=== PATIENT | female | born 1945 | race Caucasian/White ===

== ENCOUNTER 2020-04-18 00:22 | Inpatient (IN) | payer MEDICARE, OTHER ==
[2020-04-18] MEDS ORDERED: SODIUM CHLORIDE 0.9% 1,000 ML IV STA ×4 (00:31→02:22)
[2020-04-18] MEDS ORDERED: SODIUM CHLORIDE 0.9% 500 ML 500 ML IV STA (00:31)
[2020-04-18] MEDS ORDERED: ONDANSETRON 4 MG/2 ML VIAL IVP STA (00:31)
[2020-04-18] MEDS ORDERED: ATROPINE SULFATE 0.1 MG/ML 10ML SYRINGE IV STA ×2 (00:31→00:53)
--- NOTE | 2020-04-18 00:32 | ED ---
Weakness HPI - General Stated complaint: Altered Mental Status Time Seen by Provider: 04/18/20 00:31 Source: RN notes reviewed, old records reviewed Mode of arrival: EMS Limitations: language barrier, altered mental status - History of Present Illness Initial comments: This is a 74-year-old female in significant distress with persistent nausea vomiting near syncopal event at home called EMS to the possible seizure activity by patient the patient has no history of seizures. Patient admits to significant shortness breath persistent cough and congestion. Patient is mildly hypoxic on arrival with persistent nausea vomiting. Poor strain secondary severe clinical condition MD Complaint: generalized weakness, lack of energy -: days(s) Location: generalized Severity: severe Severity scale (1-10): 10 Consistency: constant Improves with: none Worsens with: none Context: recent illness, history of similar Associated Symptoms: confusion, fever/chills, loss of appetite, nausea/vomiting - Related Data Home Medications Medication Instructions Recorded Confirmed Atorvastatin [Lipitor] 20 mg PO DAILY 04/18/20 04/18/20 Calcium Citrate/Vitamin D3 1 cap PO BID 04/18/20 04/18/20 [Citracal + D Maximum Caplet] Clopidogrel [Plavix] 75 mg PO DAILY 04/18/20 04/18/20 Denosumab [Prolia] 60 mg SQ Q180D 04/18/20 04/18/20 Donepezil HCl [Aricept] 10 mg PO HS 04/18/20 04/18/20 Esomeprazole Magnesium [NexIUM] 40 mg PO BID 04/18/20 04/18/20 Hyoscyamine Sulfate [Levbid] 0.375 mg PO Q12H 04/18/20 04/18/20 Levothyroxine Sodium 112 mcg PO DAILY 04/18/20 04/18/20 Metoprolol Tartrate [Lopressor] 50 mg PO BID 04/18/20 04/18/20 Nitroglycerin Sl Tabs [Nitrostat] 0.4 mg SL Q5M PRN 04/18/20 04/18/20 Potassium Chloride ER [K-Dur 20] 20 meq PO DAILY 04/18/20 04/18/20 Ranolazine [Ranexa] 500 mg PO BID 04/18/20 04/18/20 Sennosides/Docusate Sodium [Colace 1 tab PO BID 04/18/20 04/18/20 2-in-1 Tablet] Previous Rx's Medication Instructions Recorded Torsemide [Demadex] 40 mg PO DAILY tab 04/26/20 Allergies Allergy/AdvReac Type Severity Reaction Status Date / Time aspirin Allergy Unknown Verified 04/18/20 09:12 cephalexin [From Keflex] Allergy Unknown Verified 04/18/20 09:12 ciprofloxacin [From Cipro] Allergy Unknown Verified 04/18/20 09:12 codeine Allergy Unknown Verified 04/18/20 09:12 ibuprofen [From Motrin] Allergy Unknown Verified 04/18/20 09:12 Iodinated Contrast Media Allergy Unknown Verified 04/18/20 09:12 latex Allergy Unknown Verified 04/18/20 09:12 naproxen Allergy Unknown Verified 04/18/20 09:12 Penicillins Allergy Unknown Verified 04/18/20 09:12 quinine [From Quine] Allergy Unknown Verified 04/18/20 09:12 sulfamethoxazole Allergy Unknown Verified 04/18/20 09:12 [From Bactrim] trimethoprim [From Bactrim] Allergy Unknown Verified 04/18/20 09:12 Review of Systems ROS Statement: Those systems with pertinent positive or pertinent negative responses have been documented in the HPI. ROS Other: All systems not noted in ROS Statement are negative. Past Medical History - Past Family History family Family Medical History: No Reported History General Exam Limitations: altered mental status General appearance: alert, in no apparent distress, anxious, in distress, cachectic Head exam: Present: atraumatic, normocephalic, normal inspection Eye exam: Present: normal appearance, PERRL, EOMI. Absent: scleral icterus, conjunctival injection, periorbital swelling ENT exam: Present: normal exam, mucous membranes moist Neck exam: Present: normal inspection. Absent: tenderness, meningismus, lymphadenopathy Respiratory exam: Present: wheezes, rales, accessory muscle use, decreased breath sounds, prolonged expiratory. Absent: respiratory distress, rhonchi, stridor Cardiovascular Exam: Present: bradycardia, normal heart sounds. Absent: systolic murmur, diastolic murmur, rubs, gallop, clicks GI/Abdominal exam: Present: soft, normal bowel sounds. Absent: distended, tenderness, guarding, rebound, rigid Extremities exam: Present: normal inspection, full ROM, normal capillary refill. Absent: tenderness, pedal edema, joint swelling, calf tenderness Back exam: Present: normal inspection Neurological exam: Present: alert, oriented X3, CN II-XII intact Psychiatric exam: Present: normal affect, normal mood Skin exam: Present: warm, dry, intact, normal color. Absent: rash Course Vital Signs 04/18/20 04/18/20 04/18/20 00:23 00:52 01:06 Temperature 97.6 F Pulse Rate 36 L 40 L 40 L Pulse Rate [ Raisin Separator Operator ] Respiratory 14 16 16 Rate Blood Pressure 112/75 136/60 139/64 O2 Sat by Pulse 88 L 94 L 95 Oximetry 04/18/20 04/18/20 04/18/20 01:07 01:46 01:59 Temperature Pulse Rate 43 L 38 L Pulse Rate [ 39 L Raisin Separator Operator ] Respiratory 16 16 Rate Blood Pressure 113/56 O2 Sat by Pulse 90 L 98 Oximetry 04/18/20 04/18/20 04/18/20 02:09 02:30 02:45 Temperature Pulse Rate 40 L 42 L 44 L Pulse Rate [ Raisin Separator Operator ] Respiratory 16 16 16 Rate Blood Pressure 101/51 130/56 61/44 O2 Sat by Pulse 98 97 98 Oximetry 04/18/20 04/18/20 04/18/20 03:00 03:15 03:30 Temperature Pulse Rate 40 L 45 L 42 L Pulse Rate [ Raisin Separator Operator ] Respiratory 16 16 16 Rate Blood Pressure 75/45 83/46 89/49 O2 Sat by Pulse 96 97 98 Oximetry 04/18/20 04/18/20 04/18/20 03:45 04:00 04:15 Temperature Pulse Rate 43 L 41 L 41 L Pulse Rate [ Raisin Separator Operator ] Respiratory 16 16 16 Rate Blood Pressure 85/42 77/38 88/40 O2 Sat by Pulse 97 100 9 L Oximetry 04/18/20 04:31 Temperature Pulse Rate 46 L Pulse Rate [ Raisin Separator Operator ] Respiratory 16 Rate Blood Pressure 86/40 O2 Sat by Pulse 96 Oximetry - Reevaluation(s) Reevaluation #1: Medical record is reviewed patient does not have improvement of symptoms in the ER, remains bradycardic Patient and informed of findings and results, questions are answered Patient continues again to be bradycardic potassium was treated, left lites replaced. EKG Findings - EKG Comments: EKG Findings:: EKG is likely blocked versus idioventricular pace, QRS 144 QTC 460 severe bradycardia rate 37 Procedures - Sepsis Sepsis Focused Exam #1 Time Sepsis Criteria Met: 00:30 Sepsis Focused Exam Date: 04/18/20 Sepsis Focused Exam Time: 04:00 Sepsis Focused Exam Complete: Yes Vital Signs & RN Notes Reviewed: Yes Capillary Refill: < 2 Seconds: Fingers, Toes Peripheral Pulses: Normal: Radial (R), Radial (L), Posterior Tibialis (R), Posterior Tibialis (L), Dorsalis Pedis (R), Dorsalis Pedis (L) Skin Color: Flushed Respiratory Exam: respiratory distress, rhonchi, decreased breath sounds Cardiovascular Exam: bradycardia Medical Decision Making - Medical Decision Making 74 female DF for evaluation of unresponsive with nausea and vomiting. Patient found to be hyperkalemic's secondary to renal failure and sepsis complicated by bradycardia likely secondary to above. Electrolytes are treated, patient be admitted to ICU - Lab Data Result diagrams: 04/25/20 06:03 04/25/20 06:03 Lab Results 04/18/20 04/18/20 04/18/20 Range/Units 00:37 00:37 00:37 WBC 7.1 (3.8-10.6) k/uL RBC 3.85 (3.80-5.40) m/uL Hgb 12.1 (11.4-16.0) gm/dL Hct 39.3 (34.0-46.0) % MCV 102.1 H (80.0-100.0) fL MCH 31.3 (25.0-35.0) pg MCHC 30.7 L (31.0-37.0) g/dL RDW 14.7 (11.5-15.5) % Plt Count 167 (150-450) k/uL Neutrophils % Not Reportable Neutrophils % (Manual) 68 % Band Neuts % (Manual) 10 % Lymphocytes % Not Reportable Lymphocytes % (Manual) 14 % Monocytes % Not Reportable Monocytes % (Manual) 8 % Eosinophils % Not Reportable Basophils % Not Reportable Metamyelocytes % 2 % Neutrophils # Not Reportable Neutrophils # (Manual) 5.50 (1.3-7.7) k/uL Lymphocytes # Not Reportable Lymphocytes # (Manual) 0.99 L (1.0-4.8) k/uL Monocytes # Not Reportable Monocytes # (Manual) 0.57 (0-1.0) k/uL Eosinophils # Not Reportable Basophils # Not Reportable Metamyelocytes # (Man) 0.14 H (0) k/uL Nucleated RBCs 0 (0-0) /100 WBC Manual Slide Review Performed Large Platelets Present Polychromasia Present Hypochromasia Moderate Poikilocytosis (manual Present Anisocytosis (manual) Present Macrocytosis Slight PT 11.8 (9.0-12.0) sec INR 1.2 H (<1.2) APTT 24.2 (22.0-30.0) sec Sodium (137-145) mmol/L Potassium (3.5-5.1) mmol/L Chloride (98-107) mmol/L Carbon Dioxide (22-30) mmol/L Anion Gap mmol/L BUN (7-17) mg/dL Creatinine (0.52-1.04) mg/dL Est GFR (CKD-EPI)AfAm (>60 ml/min/1.73 sqM) Est GFR (CKD-EPI)NonAf (>60 ml/min/1.73 sqM) Glucose (74-99) mg/dL Lactic Ac Sepsis Rflx Plasma Lactic Acid Dl (0.7-2.0) mmol/L Calcium (8.4-10.2) mg/dL Phosphorus (2.5-4.5) mg/dL Magnesium (1.6-2.3) mg/dL Total Bilirubin (0.2-1.3) mg/dL AST (14-36) U/L ALT (4-34) U/L Alkaline Phosphatase (38-126) U/L Creatine Kinase (30-135) U/L CK-MB (CK-2) (0.0-2.4) ng/mL Troponin I (0.000-0.034) ng/mL NT-Pro-B Natriuret Pep pg/mL Total Protein (6.3-8.2) g/dL Albumin (3.5-5.0) g/dL TSH (0.465-4.680) mIU/L Urine Color Yellow Urine Appearance Clear (Clear) Urine pH 7.0 (5.0-8.0) Ur Specific [place] 1.016 (1.001-1.035) Urine Protein 1+ H (Negative) Urine Glucose (UA) Negative (Negative) Urine Ketones Negative (Negative) Urine Blood Small H (Negative) Urine Nitrite Negative (Negative) Urine Bilirubin Negative (Negative) Urine Urobilinogen <2.0 (<2.0) mg/dL Ur Leukocyte Esterase Negative (Negative) Urine RBC 10 H (0-5) /hpf Urine WBC 2 (0-5) /hpf Hyaline Casts 13 H (0-2) /lpf Urine Mucus Rare H (None) /hpf 04/18/20 04/18/20 04/18/20 Range/Units 00:37 00:37 00:37 WBC (3.8-10.6) k/uL RBC (3.80-5.40) m/uL Hgb (11.4-16.0) gm/dL Hct (34.0-46.0) % MCV (80.0-100.0) fL MCH (25.0-35.0) pg MCHC (31.0-37.0) g/dL RDW (11.5-15.5) % Plt Count (150-450) k/uL Neutrophils % Neutrophils % (Manual) % Band Neuts % (Manual) % Lymphocytes % Lymphocytes % (Manual) % Monocytes % Monocytes % (Manual) % Eosinophils % Basophils % Metamyelocytes % % Neutrophils # Neutrophils # (Manual) (1.3-7.7) k/uL Lymphocytes # Lymphocytes # (Manual) (1.0-4.8) k/uL Monocytes # Monocytes # (Manual) (0-1.0) k/uL Eosinophils # Basophils # Metamyelocytes # (Man) (0) k/uL Nucleated RBCs (0-0) /100 WBC Manual Slide Review Large Platelets Polychromasia Hypochromasia Poikilocytosis (manual Anisocytosis (manual) Macrocytosis PT (9.0-12.0) sec INR (<1.2) APTT (22.0-30.0) sec Sodium 135 L (137-145) mmol/L Potassium 6.5 H* (3.5-5.1) mmol/L Chloride 100 (98-107) mmol/L Carbon Dioxide 23 (22-30) mmol/L Anion Gap 12 mmol/L BUN 23 H (7-17) mg/dL Creatinine 2.08 H (0.52-1.04) mg/dL Est GFR (CKD-EPI)AfAm 26 (>60 ml/min/1.73 sqM) Est GFR (CKD-EPI)NonAf 23 (>60 ml/min/1.73 sqM) Glucose 129 H (74-99) mg/dL Lactic Ac Sepsis Rflx Plasma Lactic Acid Dl 4.2 H* (0.7-2.0) mmol/L Calcium 8.1 L (8.4-10.2) mg/dL Phosphorus 5.7 H (2.5-4.5) mg/dL Magnesium 1.8 (1.6-2.3) mg/dL Total Bilirubin 1.3 (0.2-1.3) mg/dL AST 91 H (14-36) U/L ALT 28 (4-34) U/L Alkaline Phosphatase 126 (38-126) U/L Creatine Kinase 47 (30-135) U/L CK-MB (CK-2) <0.2 (0.0-2.4) ng/mL Troponin I <0.012 (0.000-0.034) ng/mL NT-Pro-B Natriuret Pep pg/mL Total Protein 7.2 (6.3-8.2) g/dL Albumin 3.9 (3.5-5.0) g/dL TSH 0.740 (0.465-4.680) mIU/L Urine Color Urine Appearance (Clear) Urine pH (5.0-8.0) Ur Specific [place] (1.001-1.035) Urine Protein (Negative) Urine Glucose (UA) (Negative) Urine Ketones (Negative) Urine Blood (Negative) Urine Nitrite (Negative) Urine Bilirubin (Negative) Urine Urobilinogen (<2.0) mg/dL Ur Leukocyte Esterase (Negative) Urine RBC (0-5) /hpf Urine WBC (0-5) /hpf Hyaline Casts (0-2) /lpf Urine Mucus (None) /hpf 04/18/20 04/18/20 Range/Units 00:37 01:10 WBC (3.8-10.6) k/uL RBC (3.80-5.40) m/uL Hgb (11.4-16.0) gm/dL Hct (34.0-46.0) % MCV (80.0-100.0) fL MCH (25.0-35.0) pg MCHC (31.0-37.0) g/dL RDW (11.5-15.5) % Plt Count (150-450) k/uL Neutrophils % Neutrophils % (Manual) % Band Neuts % (Manual) % Lymphocytes % Lymphocytes % (Manual) % Monocytes % Monocytes % (Manual) % Eosinophils % Basophils % Metamyelocytes % % Neutrophils # Neutrophils # (Manual) (1.3-7.7) k/uL Lymphocytes # Lymphocytes # (Manual) (1.0-4.8) k/uL Monocytes # Monocytes # (Manual) (0-1.0) k/uL Eosinophils # Basophils # Metamyelocytes # (Man) (0) k/uL Nucleated RBCs (0-0) /100 WBC Manual Slide Review Large Platelets Polychromasia Hypochromasia Poikilocytosis (manual Anisocytosis (manual) Macrocytosis PT (9.0-12.0) sec INR (<1.2) APTT (22.0-30.0) sec Sodium (137-145) mmol/L Potassium (3.5-5.1) mmol/L Chloride (98-107) mmol/L Carbon Dioxide (22-30) mmol/L Anion Gap mmol/L BUN (7-17) mg/dL Creatinine (0.52-1.04) mg/dL Est GFR (CKD-EPI)AfAm (>60 ml/min/1.73 sqM) Est GFR (CKD-EPI)NonAf (>60 ml/min/1.73 sqM) Glucose (74-99) mg/dL Lactic Ac Sepsis Rflx Y Plasma Lactic Acid Dl (0.7-2.0) mmol/L Calcium (8.4-10.2) mg/dL Phosphorus (2.5-4.5) mg/dL Magnesium (1.6-2.3) mg/dL Total Bilirubin (0.2-1.3) mg/dL AST (14-36) U/L ALT (4-34) U/L Alkaline Phosphatase (38-126) U/L Creatine Kinase (30-135) U/L CK-MB (CK-2) (0.0-2.4) ng/mL Troponin I (0.000-0.034) ng/mL NT-Pro-B Natriuret Pep 4090 pg/mL Total Protein (6.3-8.2) g/dL Albumin (3.5-5.0) g/dL TSH (0.465-4.680) mIU/L Urine Color Urine Appearance (Clear) Urine pH (5.0-8.0) Ur Specific [place] (1.001-1.035) Urine Protein (Negative) Urine Glucose (UA) (Negative) Urine Ketones (Negative) Urine Blood (Negative) Urine Nitrite (Negative) Urine Bilirubin (Negative) Urine Urobilinogen (<2.0) mg/dL Ur Leukocyte Esterase (Negative) Urine RBC (0-5) /hpf Urine WBC (0-5) /hpf Hyaline Casts (0-2) /lpf Urine Mucus (None) /hpf - Radiology Data Radiology results: report reviewed (S x-rays positive for significant bilateral pneumonia), image reviewed Critical Care Time Critical Care Time: Yes Total Critical Care Time: 65 Disposition Clinical Impression: Altered mental status, Weakness, Bradycardia, Hyperkalemia, Near syncope, Nausea & vomiting, Community acquired bacterial pneumonia, Hypoxia, Pneumonia of both lungs, Sepsis with acute hypoxic respiratory failure Disposition: ADMITTED IP TO THIS HOSP Condition: Fair Is patient prescribed a controlled substance at d/c from ED?: No
[2020-04-18 01:03] LABS: HCT 39.3 % (34.0-46.0); HGB 12.1 gm/dL (11.4-16.0); Hypochromasia Moderate; MCH 31.3 pg (25.0-35.0); MCHC 30.7 g/dL (31.0-37.0); MCV 102.1 fL (80.0-100.0); Macrocytosis Slight; Mean Platelet Volume 7.5; Platelet Count 167 k/uL (150-450); RBC 3.85 m/uL (3.80-5.40); RDW 14.7 % (11.5-15.5); WBC 7.1 k/uL (3.8-10.6)
[2020-04-18 01:04] LABS: Albumin 3.9 g/dL (3.5-5.0); Calcium 8.1 mg/dL (8.4-10.2); Magnesium 1.8 mg/dL (1.6-2.3); Phosphorus 5.7 mg/dL (2.5-4.5); Total Bilirubin 1.3 mg/dL (0.2-1.3); Total Protein 7.2 g/dL (6.3-8.2)
[2020-04-18] MEDS ORDERED: DEXTROSE 50% SYRINGE 50 ML IVP STA (01:09)
[2020-04-18] MEDS ORDERED: SODIUM BICARB 8.4% 50 ML SYR (1 MEQ/ML) IV STA (01:09)
[2020-04-18] MEDS ORDERED: INSULIN REGULAR 100 UNIT/ML VIAL IV ONE (01:09)
[2020-04-18 01:10] LABS: Potassium 6.5 mmol/L (3.5-5.1)
[2020-04-18 01:14] LABS: INR 1.2 (<1.2); Partial Thromboplastin Time 24.2 sec (22.0-30.0); Prothrombin Time 11.8 sec (9.0-12.0)
[2020-04-18] MEDS ORDERED: CALCIUM GLUCONATE 2 GM in SODIUM CHLORIDE 0.9% 100 ML IVPB ONE (01:15)
--- NOTE | 2020-04-18 01:25 | XR ---
EXAM: XR Chest, 1 View CLINICAL HISTORY: ITS.REASON XR Reason: sob TECHNIQUE: Frontal view of the chest. COMPARISON: No relevant prior studies available. FINDINGS: Lungs: Patchy to confluent opacities at the lung bases and in the perihilar regions, right greater than left. Pleural space: Unremarkable. No pneumothorax. No large pleural effusion. Heart: Cardiomegaly of unknown chronicity. Mediastinum: The medius on contours are unremarkable, accounting for obliquity and perihilar changes. No severe in tracheal deviation. Bones/joints: Scoliosis of the cervicothoracic region suggested. No severe rotatory component. IMPRESSION: 1. Patchy to confluent opacities at the lung bases and in the perihilar regions, right greater than left. Differential consideration includes bilateral pneumonia versus asymmetric pulmonary edema. No large pleural effusion or pneumothorax. 2. Cardiomegaly of unknown chronicity.
[2020-04-18 01:30] LABS: Creatine Kinase MB <0.2 ng/mL (0.0-2.4); Troponin I <0.012 ng/mL (0.000-0.034)
[2020-04-18] MEDS ORDERED: NALOXONE 0.4 MG/ML 1 ML VIAL IV PRN (01:34)
[2020-04-18] MEDS ORDERED: PNEUMONIA PROTOCOL UTILIZED 1 EACH MISC PO PRN (01:34)
[2020-04-18] MEDS ORDERED: AZITHROMYCIN 500 MG in SODIUM CHLORIDE 0.9% 250 ML IVPB ONE (01:45)
[2020-04-18] MEDS ORDERED: SODIUM CHLORIDE 0.9% 1,000 ML IV SCH (01:45)
[2020-04-18] MEDS ORDERED: DEXTROSE 5%-0.45% NACL 1,000 ML IV SCH (01:45)
[2020-04-18] MEDS ORDERED: DOPamine DRIP 800 MG in DEXTROSE/WATER 1 250ML.BAG IV ONE (01:55)
[2020-04-18 02:05] LABS: Appearance,Urine Clear (Clear); Bilirubin,Urine Negative (Negative); Blood,Urine Small (Negative); Color,Urine Yellow; Glucose,Urine (UA) Negative (Negative); Hyaline Casts,Urine 13 /lpf (0-2); Ketones,Urine Negative (Negative); Leukocyte Esterase,Urine Negative (Negative); Mucus,Urine Rare /hpf; Nitrite,Urine Negative (Negative); Protein,Urine 1+ (Negative); RBC,Urine 10 /hpf (0-5); Specific Gravity,Urine 1.016 (1.001-1.035); Urobilinogen,Urine <2.0 mg/dL (<2.0); WBC,Urine 2 /hpf (0-5)
[2020-04-18 02:15] LABS: Anisocytosis (M) Present; Band Neutrophils % 10 %; Lymphocytes # (M) 0.99 k/uL (1.0-4.8); Metamyelocytes # (M) 0.14 k/uL (0); Metamyelocytes % 2 %; Monocytes # (M) 0.57 k/uL (0-1.0); Neutrophils % (M) 68 %; Nucleated Red Blood Cells 0 /100 WBC (0-0); Total Cells Counted 200
[2020-04-18 02:16] LABS: Polychromasia Present
[2020-04-18 02:17] LABS: Large Platelets Present; Poikilocytosis (M) Present
[2020-04-18] MEDS ORDERED: VANCOMYCIN IV PER PHARMACY 1 EACH MISC MISCELLANE PRN (02:22)
[2020-04-18] MEDS ORDERED: NOREPINEPHRINE 4 MG in SODIUM CHLORIDE 0.9% 250 ML IV SCH (03:15)
--- NOTE | 2020-04-18 03:31 | P.HPIM ---
History of Present Illness H&P Date: 04/18/20 Chief Complaint: altered mental status 74 year old female with hypertension , fibromyalgia , and history of CAD patient was brought in by her due to sudden change in her mental status , she has been at her baseline status of health until last week when she had her colonoscopy (before procedure tested negative for COVID). since then she has been coughing sometimes productive of yellowish sputum. denies any chest pain , or trouble breathing. denies any fever or chills. denies any change in smell or taste sensation. she reports increase in her body aches (she has history of fibromyalgia). today her noticed that she was not acting normal . he was trying to wake her up around this evening, but she seemed very weak and confused. he suspects that she might have a seizure episode (she was shaking all her limbs for more than 5 minutes) he notified EMS and brought her to the hospital . patient also report few episodes of coffee ground vomiting. denies any bloody diarrhea. denies any abd pain. denies recent travel or sick contact. denies any changes in urination in the ED, she was found to have bilateral lower lung patchy infilterates. CHARMAINE with hyperkalemia. and severe bradycardia. EKG results discussed with cardio , who recommended starting her on dopamine patient was given Ca gluconate in the ED, bicarb, and D50%/insulin to help lower hyperkalemia Review of Systems all systems reviewed, pertinent negatives and positives as per HPI ROS unobtainable: due to mental status Past Medical History Past Medical History: Coronary Artery Disease (CAD), Fibromyalgia, Hypertension History of Any Multi-Drug Resistant Organisms: None Reported Past Psychological History: No Psychological Hx Reported Smoking Status: Never smoker Past Alcohol Use History: Occasional Past Drug Use History: None Reported - Past Family History family Family Medical History: No Reported History Medications and Allergies Allergies Allergy/AdvReac Type Severity Reaction Status Date / Time aspirin Allergy Unknown Verified 04/18/20 00:36 cephalexin [From Keflex] Allergy Unknown Verified 04/18/20 00:36 codeine Allergy Unknown Verified 04/18/20 00:36 ibuprofen [From Motrin] Allergy Unknown Verified 04/18/20 00:36 Iodinated Contrast Media Allergy Unknown Verified 04/18/20 00:36 Penicillins Allergy Unknown Verified 04/18/20 00:36 quinine [From Quine] Allergy Unknown Verified 04/18/20 00:36 Physical Exam Vitals: Vital Signs Temp Pulse Pulse Resp BP Pulse Ox 04/18/20 01:07 39 L 04/18/20 01:06 40 L 16 139/64 95 04/18/20 00:52 40 L 16 136/60 94 L 04/18/20 00:23 97.6 F 36 L 14 112/75 88 L Intake and Output 04/17/20 04/17/20 04/18/20 14:59 22:59 06:59 Other: Weight 50.802 kg General: non toxic, no distress, appears at stated age, Derm: no unusual rashes/lesions no unusual ecchymoses, warm, dry. Head: atraumatic, normocephalic, symmetric Eyes: EOMI, anicteric sclera, pupils equal round reactive to light ENT: Nose and ears atraumatic, no thrush, no pharyngeal erythema Neck: No thyromegaly, no cervical lymphadenopathy, trachea midline, supple Mouth: no lip lesion, mucus membranes moist Cardiovascular: S1S2 bradycardia, no murmur, positive posterior tibial pulse bilateral, no edema, capillary refill immediate Lungs: decrease breath sounds at lung basis bilaterally , no wheezing , no accessory muscle use Abdominal: soft, no tenderness to palpation no guarding, no appreciable organomegaly, positive bowel sounds Ext: no gross muscle atrophy, muscle strength 4 out of 5 in all 4 extremities grossly, no contractures Neuro: CN II-XI grossly intact, light touch intact all 4 extremities, finger to nose within normal limits Psych: Alert, orientation to place and person Results CBC & Chem 7: 04/18/20 00:37 04/18/20 00:37 Labs: Abnormal Lab Results - Last 24 Hours (Table) 04/18/20 04/18/20 04/18/20 Range/Units 00:37 00:37 00:37 MCV 102.1 H (80.0-100.0) fL MCHC 30.7 L (31.0-37.0) g/dL INR 1.2 H (<1.2) Sodium 135 L (137-145) mmol/L Potassium 6.5 H* (3.5-5.1) mmol/L BUN 23 H (7-17) mg/dL Creatinine 2.08 H (0.52-1.04) mg/dL Glucose 129 H (74-99) mg/dL Plasma Lactic Acid Dl (0.7-2.0) mmol/L Calcium 8.1 L (8.4-10.2) mg/dL Phosphorus 5.7 H (2.5-4.5) mg/dL AST 91 H (14-36) U/L 04/18/20 Range/Units 00:37 MCV (80.0-100.0) fL MCHC (31.0-37.0) g/dL INR (<1.2) Sodium (137-145) mmol/L Potassium (3.5-5.1) mmol/L BUN (7-17) mg/dL Creatinine (0.52-1.04) mg/dL Glucose (74-99) mg/dL Plasma Lactic Acid Dl 4.2 H* (0.7-2.0) mmol/L Calcium (8.4-10.2) mg/dL Phosphorus (2.5-4.5) mg/dL AST (14-36) U/L Assessment and Plan Assessment: acute metabolic encephalopathy acute bilateral community acquired pneumonia lactic acidosis CHARMAINE hyperkalemia symptomatic with bradycardia plan blood culture monitor vital signs ICU care patient given calcium gluconate, D50%/Insulin IV, Na Bicarb, to lower hyperkalemia IVF hydration follow up lactic acid avoid nephrotoxic meds monitor urine output Dopamine drip per cardio recommendations for bradycardia follow up K empiric ABx, with vanco with azithro cardio and ICU consultation DVT ppx with heparin sc tid check COVID 19 full code anticipated length of stay > 2 midnights case discussed with ED, RN, patient and her A total of 70 minutes were spent on the care of this complex patient more than 50% of the time was spent in counseling and care coordination.
[2020-04-18 03:53] LABS: Basophils % (A) 1 %; Eosinophils % (A) 0 %; HCT 34.4 % (34.0-46.0); HGB 10.7 gm/dL (11.4-16.0); Hypochromasia Slight; Lymphocytes # (A) 1.2 k/uL (1.0-4.8); Lymphocytes % (A) 14 %; MCH 31.8 pg (25.0-35.0); MCHC 31.2 g/dL (31.0-37.0); MCV 102.1 fL (80.0-100.0); Macrocytosis Slight; Monocytes # (A) 0.5 k/uL (0-1.0); Monocytes % (A) 6 %; Neutrophils # (A) 6.7 k/uL (1.3-7.7); Neutrophils % (A) 78 %; Platelet Count 140 k/uL (150-450); RBC 3.37 m/uL (3.80-5.40); RDW 14.1 % (11.5-15.5); WBC 8.6 k/uL (3.8-10.6)
[2020-04-18] MEDS ORDERED: VANCOMYCIN 1,000 MG in SODIUM CHLORIDE 0.9% 250 ML IVPB ONE (04:00)
[2020-04-18 04:02] LABS: Albumin 3.3 g/dL (3.5-5.0); Calcium 7.8 mg/dL (8.4-10.2); Potassium 4.7 mmol/L (3.5-5.1); Total Bilirubin 1.1 mg/dL (0.2-1.3); Total Protein 6.2 g/dL (6.3-8.2)
[2020-04-18] MEDS: NOREPINEPHRINE 32 MG in SODIUM CHLORIDE 0.9% 218 ML IV SCH (04:03)
[2020-04-18 04:58] LABS: Glucose,Whole Blood 118 mg/dL (75-99)
[2020-04-18] MEDS ORDERED: Magnesium Replacement Protocol 1 EACH MISC MISCELLANE PRN (06:28)
[2020-04-18] MEDS: MAGNESIUM SULFATE-D5W PMX 1 GM in DEXTROSE/WATER 1 100ML.BAG IVPB SCH ×2 (06:37→09:44)
[2020-04-18] MEDS: IPRATROPIUM-ALBUTEROL 3 ML NEB INHALATION PRN (07:19)
--- NOTE | 2020-04-18 08:17 | XR ---
EXAMINATION TYPE: XR chest 1V portable DATE OF EXAM: 04/18/2020 COMPARISON: Prior chest x-ray 04/18/2020 HISTORY: Status post central venous catheter placement TECHNIQUE: Single frontal view of the chest is obtained. FINDINGS: There is been placement of a right jugular central venous catheter, distal tip is in the r ight atrium. No evident pneumothorax. No other significant interval change. IMPRESSION: No evident complication status post central venous catheter placement.
[2020-04-18] MEDS ORDERED: ENOXAPARIN 40 MG/0.4 ML SYRINGE SQ SCH (09:00)
[2020-04-18] MEDS ORDERED: PANTOPRAZOLE 40 MG/10 ML VIAL IV SCH (09:00)
[2020-04-18] MEDS ORDERED: LEVOFLOXACIN 500MG-D5W PMX 500 MG in DEXTROSE/WATER 1 100ML.BAG IVPB SCH (09:15)
[2020-04-18] MEDS: LEVOTHYROXINE 112 MCG TAB PO SCH (09:44)
[2020-04-18] MEDS: ATORVASTATIN 20 MG TAB PO SCH (10:04)
[2020-04-18] MEDS: CLOPIDOGREL 75 MG TAB PO SCH (10:04)
[2020-04-18 10:32] LABS: C Reactive Protein 11.3 mg/L (<10.0)
--- NOTE | 2020-04-18 10:58 | ECHOF ---
Referral Reason:elaine MEASUREMENTS -------- HEIGHT: 149.9 cm WEIGHT: 54.9 kg BP: 106/42 RVIDd: 3.0 cm (< 3.3) IVSd: 0.9 cm (0.6 - 1.1) LVIDd: 4.4 cm (3.9 - 5.3) LVPWd: 1.1 cm (0.6 - 1.1) IVSs: 1.3 cm LVIDs: 3.3 cm LVPWs: 1.5 cm LA Diam: 3.6 cm (2.7 - 3.8) LAESV Index (A-L): 38.50 ml/m Ao Diam: 2.5 cm (2.0 - 3.7) AV Cusp: 1.8 cm (1.5 - 2.6) MV EXCURSION: 19.436 mm (> 18.000) MV EF SLOPE: 128 mm/s (70 - 150) EPSS: 0.4 cm MV E Carlos: 1.13 m/s MV DecT: 288 ms MV A Carlos: 0.82 m/s MV E/A Ratio: 1.38 RAP: 5.00 mmHg RVSP: 38.72 mmHg FINDINGS -------- Sinus rhythm. This was a technically good study. The left ventricular size is normal. Left ventricular wall thickness is normal. Overall left vent ricular systolic function is normal with, an EF between 60 - 65 %. The right ventricle is normal in size. LA is moderately dilated 34-39 ml/m2 The right atrium is normal in size. Interatrial and interventricular septum intact. The aortic valve is trileaflet and appears structurally normal. [id number] mitral regurgitation is present. Mild tricuspid regurgitation present. There is mild pulmonary hypertension. The right ventricular systolic pressure, as measured by Doppler, is 38.72mmHg. Trace/mild (physiologic) pulmonic regurgitation. The aortic root size is normal. Normal inferior vena cava with normal inspiratory collapse consistent with estimated right atrial pre ssure of 5 mmHg. There is no pericardial effusion. CONCLUSIONS -------- 1. The left ventricular size is normal. 2. Left ventricular wall thickness is normal. 3. Overall left ventricular systolic function is normal with, an EF between 60 - 65 %. 4. LA is moderately dilated 34-39 ml/m2 5. Dmcd-hq-[id number] mitral regurgitation is present. 6. Mild tricuspid regurgitation present. 7. There is mild pulmonary hypertension. 8. The right ventricular systolic pressure, as measured by Doppler, is 38.72mmHg. 9. Trace/mild (physiologic) pulmonic regurgitation. 10. There is no pericardial effusion. SEED PACKER: Siobhan Hamm RDCS
[2020-04-18] MEDS: dexAMETHasone 2 MG TAB PO SCH (12:17)
[2020-04-18] MEDS ORDERED: GABAPENTIN 400 MG CAP PO SCH (13:00)
--- NOTE | 2020-04-18 13:22 | P.CNPUL ---
History of Present Illness Consult date: 04/18/20 Reason for consult: pneumonia History of present illness: This is a 74-year-old female patient, known history of coronary artery disease with previous coronary stenting involving the LAD, was found to have some altered mentation and was found to be quite weak and fatigued. The patient was also coughing some yellow sputum. No hemoptysis. No chest pain. The patient was also noted to have some altered mentation. The brought the patient into the hospital for further evaluation. In the ED, the patient was found to be hypotensive and she was found to have an idioventricular rhythm with bradycardia at the rate of 37, wide-complex. Potassium level was elevated at 6.5 and the patient also had an acute kidney injury with an acute rise in the renal function with a creatinine of 2.08. The patient was treated accordingly. The patient was given treatment for hyperkalemia with a combination of bicarb and D50 insulin and subsequent potassium level improved is currently down to 4.7. Her current rhythm is slow rate atrial fibrillation, the rhythm is irregular and the QRS is much more narrow compared to the earlier EKG findings. Echocardiogram is to follow. Meanwhile, the patient will be started on antibiotics regarding the right lower lobe pneumonia and based on ALLERGY the patient was started on a combination of Zithromax and vancomycin. Note that this patient also had a triple lumen catheter established. Sedated we will monitor. The patient was given a liter of IV fluids and currently the patient is receiving IV fluids at the rate of 75 mL an hour. The patient is also started on a combination of Prevacid and the patient is receiving dopamine at 10 g per KG per minute and norepinephrine infusion is running at 0.14 g per KG per minute. Lactic acid level was at 2.2 and strep down to 1.5 Review of Systems Constitutional: Reports fatigue, Reports lethargy, Reports weakness Eyes: denies as per HPI, denies blurred vision, denies bulging eye, denies decreased vision, denies diplopia, denies discharge, denies dry eye, denies irritation, denies itching, denies pain, denies photophobia, denies loss of peripheral vision, denies loss of vision, denies tunnel vision/blind spots Ears: deny: decreased hearing, ear discharge, earache, tinnitus Ears, nose, mouth and throat: Denies headache, Denies sore throat Breasts: absent: as per HPI, change in shape, gynecomastia, masses, nipple discharge, pain, skin changes, swelling Cardiovascular: Reports decreased exercise tolerance, Reports dyspnea on exertion Respiratory: Reports cough, Reports dyspnea Gastrointestinal: Reports as per HPI Genitourinary: Reports as per HPI Menstruation: Reports as per HPI Musculoskeletal: Reports as per HPI Musculoskeletal: absent: ankle pain, ankle stiffness, ankle swelling Integumentary: Reports as per HPI Neurological: Reports as per HPI, Reports change in mentation Psychiatric: Reports as per HPI Endocrine: Reports as per HPI Hematologic/Lymphatic: Reports as per HPI Allergic/Immunologic: Reports as per HPI Past Medical History Past Medical History: Coronary Artery Disease (CAD), Fibromyalgia, Hypertension Additional Past Medical History / Comment(s): stent to LADx3, last cath was in 2018, Follows with Dr Ellison. SHERRIE. peripheral neuropathy. Hypothyroid. osteoporosis. hyperlipidemia History of Any Multi-Drug Resistant Organisms: None Reported Past Surgical History: Bladder Surgery, Cholecystectomy, Heart Catheterization With Stent, Hysterectomy Additional Past Surgical History / Comment(s): EGD and colonoscopy done in [facility] Past Psychological History: No Psychological Hx Reported Smoking Status: Never smoker Past Alcohol Use History: Occasional Past Drug Use History: None Reported - Past Family History family Family Medical History: No Reported History Medications and Allergies Home Medications Medication Instructions Recorded Confirmed Type Atorvastatin [Lipitor] 20 mg PO DAILY 04/18/20 04/18/20 History Calcium Citrate/Vitamin D3 1 cap PO BID 04/18/20 04/18/20 History [Citracal + D Maximum Caplet] Cetirizine HCl [Zyrtec] 10 mg PO DAILY 04/18/20 04/18/20 History Clopidogrel [Plavix] 75 mg PO DAILY 04/18/20 04/18/20 History Denosumab [Prolia] 60 mg SQ Q180D 04/18/20 04/18/20 History Diltiazem HCl [Cardizem CD] 240 mg PO BID 04/18/20 04/18/20 History Donepezil HCl [Aricept] 10 mg PO HS 04/18/20 04/18/20 History Esomeprazole Magnesium [NexIUM] 40 mg PO BID 04/18/20 04/18/20 History Gabapentin 800 mg PO QID 04/18/20 04/18/20 History Hyoscyamine Sulfate [Levbid] 0.375 mg PO Q12H 04/18/20 04/18/20 History Levothyroxine Sodium 112 mcg PO DAILY 04/18/20 04/18/20 History Lysine [l-Lysine] 1,000 mg PO DAILY 04/18/20 04/18/20 History Metoprolol Tartrate [Lopressor] 50 mg PO BID 04/18/20 04/18/20 History Nitroglycerin Extended Release 6.5 mg PO TID 04/18/20 04/18/20 History [Nitro-Bid] Nitroglycerin Sl Tabs [Nitrostat] 0.4 mg SL Q5M PRN 04/18/20 04/18/20 History Omeprazole 20 mg PO AC-BRKFST 04/18/20 04/18/20 History Potassium Chloride ER [K-Dur 20] 20 meq PO DAILY 04/18/20 04/18/20 History Ranolazine [Ranexa] 500 mg PO BID 04/18/20 04/18/20 History Sennosides/Docusate Sodium [Colace 1 tab PO BID 04/18/20 04/18/20 History 2-in-1 Tablet] Torsemide [Demadex] 20 mg PO TID 04/18/20 04/18/20 History diphenhydrAMINE [Benadryl] 25 mg PO HS 04/18/20 04/18/20 History fentaNYL 100MCG/HR PATCH 1 patch TRANSDERM Q72H 04/18/20 04/18/20 History [Duragesic 100MCG/HR] Allergies Allergy/AdvReac Type Severity Reaction Status Date / Time aspirin Allergy Unknown Verified 04/18/20 09:12 cephalexin [From Keflex] Allergy Unknown Verified 04/18/20 09:12 ciprofloxacin [From Cipro] Allergy Unknown Verified 04/18/20 09:12 codeine Allergy Unknown Verified 04/18/20 09:12 ibuprofen [From Motrin] Allergy Unknown Verified 04/18/20 09:12 Iodinated Contrast Media Allergy Unknown Verified 04/18/20 09:12 latex Allergy Unknown Verified 04/18/20 09:12 naproxen Allergy Unknown Verified 04/18/20 09:12 Penicillins Allergy Unknown Verified 04/18/20 09:12 quinine [From Quine] Allergy Unknown Verified 04/18/20 09:12 sulfamethoxazole Allergy Unknown Verified 04/18/20 09:12 [From Bactrim] trimethoprim [From Bactrim] Allergy Unknown Verified 04/18/20 09:12 Physical Exam Vitals: Vital Signs Temp Pulse Pulse Resp BP Pulse Ox 04/18/20 07:32 56 L 04/18/20 07:20 54 L 98 04/18/20 07:00 55 L 18 106/42 97 04/18/20 06:45 57 L 19 98/50 94 L 04/18/20 06:30 52 L 22 103/57 94 L 04/18/20 06:15 50 L 21 108/47 96 04/18/20 06:00 51 L 16 108/47 96 04/18/20 05:45 53 L 28 H 100/45 97 04/18/20 05:30 54 L 11 L 103/44 95 04/18/20 05:15 52 L 14 100/85 98 04/18/20 05:13 97.6 F 51 L 11 L 103/44 98 04/18/20 04:31 46 L 16 86/40 96 04/18/20 04:15 41 L 16 88/40 9 L 04/18/20 04:00 41 L 16 77/38 100 04/18/20 03:45 43 L 16 85/42 97 04/18/20 03:30 42 L 16 89/49 98 04/18/20 03:15 45 L 16 83/46 97 04/18/20 03:00 40 L 16 75/45 96 04/18/20 02:45 44 L 16 61/44 98 04/18/20 02:30 42 L 16 130/56 97 04/18/20 02:09 40 L 16 101/51 98 04/18/20 01:59 38 L 16 98 04/18/20 01:46 43 L 16 113/56 90 L 04/18/20 01:07 39 L 04/18/20 01:06 40 L 16 139/64 95 04/18/20 00:52 40 L 16 136/60 94 L 04/18/20 00:23 97.6 F 36 L 14 112/75 88 L Intake and Output 04/17/20 04/18/20 04/18/20 22:59 06:59 14:59 Intake Total 270.189 130 Output Total 75 25 Balance 195.189 105 Intake: IV 260 130 Sodium Chloride 0.9% 1, 260 130 000 ml @ 130 mls/hr IV . Q7H42M [facility] Rx#:[id number] Intake, IV Titration 10.189 Amount DOPamine DRIP 800 mg In 3.128 Dextrose/Water 1 250ml. bag @ 5 MCG/KG/MIN 4.763 mls/hr IV .Q24H [facility] Rx#: [id number] Norepinephrine 32 mg In 7.061 Sodium Chloride 0.9% 218 ml @ 0.05 MCG/KG/MIN 1. 191 mls/hr IV .Q24H [facility] Rx#:[id number] Output: Urine 75 25 Other: Voiding Method Indwelling Catheter Indwelling Catheter Weight 55.1 kg The patient appeared well nourished and normally developed. Vital signs as documented. Head exam is unremarkable. No scleral icterus or corneal arcus noted. Neck is without jugular venous distension, thyromegaly, or carotid bruits. Carotid upstrokes are brisk bilaterally. Lungs are clear to auscultation and percussion. Cardiac exam reveals the PMI to be normally sized and situated. Rhythm is regular. First and second heart sounds normal. No murmurs, rubs or gallops. Abdominal exam reveals normal bowel sounds, no masses, no organomegaly and no aortic enlargement. Extremities are nonedematous and both femoral and pedal pulses are normal.Examination of the skin revealed no evidence of significant rashes, suspicious appearing nevi or other concerning lesions.Neurologically, the patient is awake and alert and the patient does not have any focal neurological deficit. Cranial nerves are essentially intact. Results General: non toxic, no distress, appears at stated age, the patient is following commands and answering questions and seems to be appropriate this point in time I do not appreciate any significant change in mental status. Derm: no unusual rashes/lesions no unusual ecchymoses, warm, dry. Head: atraumatic, normocephalic, symmetric Eyes: EOMI, anicteric sclera, pupils equal round reactive to light ENT: Nose and ears atraumatic, no thrush, no pharyngeal erythema Neck: No thyromegaly, no cervical lymphadenopathy, trachea midline, supple Mouth: no lip lesion, mucus membranes moist Cardiovascular: S1S2 bradycardia, irregular, no murmur, positive posterior tibial pulse bilateral, no edema, capillary refill immediate Lungs: decrease breath sounds at lung basis bilaterally , no wheezing , no accessory muscle use Abdominal: soft, no tenderness to palpation no guarding, no appreciable organomegaly, positive bowel sounds Ext: no gross muscle atrophy, muscle strength 4 out of 5 in all 4 extremities grossly, no contractures Neuro: CN II-XI grossly intact, light touch intact all 4 extremities, finger to nose within normal limits Psych: Alert, orientation to place and person - Laboratory Findings CBC and BMP: 04/18/20 03:49 04/18/20 03:49 ABG WBC 8.6 k/uL (3.8-10.6) 04/18/20 03:49 RBC 3.37 m/uL (3.80-5.40) L 04/18/20 03:49 Hgb 10.7 gm/dL (11.4-16.0) L 04/18/20 03:49 Hct 34.4 % (34.0-46.0) 04/18/20 03:49 MCV 102.1 fL (80.0-100.0) H 04/18/20 03:49 MCH 31.8 pg (25.0-35.0) 04/18/20 03:49 MCHC 31.2 g/dL (31.0-37.0) 04/18/20 03:49 RDW 14.1 % (11.5-15.5) 04/18/20 03:49 Plt Count 140 k/uL (150-450) L 04/18/20 03:49 Neutrophils % 78 % 04/18/20 03:49 Neutrophils % (Manual) 68 % 04/18/20 00:37 Band Neuts % (Manual) 10 % 04/18/20 00:37 Lymphocytes % 14 % 04/18/20 03:49 Lymphocytes % (Manual) 14 % 04/18/20 00:37 Monocytes % 6 % 04/18/20 03:49 Monocytes % (Manual) 8 % 04/18/20 00:37 Eosinophils % 0 % 04/18/20 03:49 Basophils % 1 % 04/18/20 03:49 Metamyelocytes % 2 % 04/18/20 00:37 Neutrophils # 6.7 k/uL (1.3-7.7) 04/18/20 03:49 Neutrophils # (Manual) 5.50 k/uL (1.3-7.7) 04/18/20 00:37 Lymphocytes # 1.2 k/uL (1.0-4.8) 04/18/20 03:49 Lymphocytes # (Manual) 0.99 k/uL (1.0-4.8) L 04/18/20 00:37 Monocytes # 0.5 k/uL (0-1.0) 04/18/20 03:49 Monocytes # (Manual) 0.57 k/uL (0-1.0) 04/18/20 00:37 Eosinophils # 0.0 k/uL (0-0.7) 04/18/20 03:49 Basophils # 0.0 k/uL (0-0.2) 04/18/20 03:49 Metamyelocytes # (Man) 0.14 k/uL (0) H 04/18/20 00:37 Nucleated RBCs 0 /100 WBC (0-0) 04/18/20 00:37 Manual Slide Review Performed 04/18/20 00:37 Large Platelets Present 04/18/20 00:37 Polychromasia Present 04/18/20 00:37 Hypochromasia Slight 04/18/20 03:49 Poikilocytosis (manual Present 04/18/20 00:37 Anisocytosis (manual) Present 04/18/20 00:37 Macrocytosis Slight 04/18/20 03:49 PT 11.8 sec (9.0-12.0) 04/18/20 00:37 INR 1.2 (<1.2) H 04/18/20 00:37 APTT 24.2 sec (22.0-30.0) 04/18/20 00:37 Sodium 139 mmol/L (137-145) 04/18/20 03:49 Potassium 4.7 mmol/L (3.5-5.1) 04/18/20 03:49 Chloride 104 mmol/L (98-107) 04/18/20 03:49 Carbon Dioxide 27 mmol/L (22-30) 04/18/20 03:49 Anion Gap 8 mmol/L 04/18/20 03:49 BUN 23 mg/dL (7-17) H 04/18/20 03:49 Creatinine 1.84 mg/dL (0.52-1.04) H 04/18/20 03:49 Est GFR (CKD-EPI)AfAm 31 (>60 ml/min/1.73 sqM) 04/18/20 03:49 Est GFR (CKD-EPI)NonAf 27 (>60 ml/min/1.73 sqM) 04/18/20 03:49 Glucose 119 mg/dL (74-99) H 04/18/20 03:49 POC Glucose (mg/dL) 118 mg/dL (75-99) H 04/18/20 04:56 POC Glu Underwriting Technician ID Rosalia Martines 04/18/20 04:56 Lactic Ac Sepsis Rflx Y 04/18/20 04:50 Plasma Lactic Acid Dl 1.5 mmol/L (0.7-2.0) 04/18/20 07:14 Calcium 7.8 mg/dL (8.4-10.2) L 04/18/20 03:49 Phosphorus 5.7 mg/dL (2.5-4.5) H 04/18/20 00:37 Magnesium 1.8 mg/dL (1.6-2.3) 04/18/20 00:37 Total Bilirubin 1.1 mg/dL (0.2-1.3) 04/18/20 03:49 AST 100 U/L (14-36) H 04/18/20 03:49 ALT 37 U/L (4-34) H 04/18/20 03:49 Alkaline Phosphatase 112 U/L (38-126) 04/18/20 03:49 Creatine Kinase 47 U/L (30-135) 04/18/20 00:37 CK-MB (CK-2) <0.2 ng/mL (0.0-2.4) 04/18/20 00:37 Troponin I <0.012 ng/mL (0.000-0.034) 04/18/20 00:37 NT-Pro-B Natriuret Pep 4090 pg/mL 04/18/20 00:37 Total Protein 6.2 g/dL (6.3-8.2) L 04/18/20 03:49 Albumin 3.3 g/dL (3.5-5.0) L 04/18/20 03:49 TSH 0.740 mIU/L (0.465-4.680) 04/18/20 00:37 Urine Color Yellow 04/18/20 00:37 Urine Appearance Clear (Clear) 04/18/20 00:37 Urine pH 7.0 (5.0-8.0) 04/18/20 00:37 Ur Specific Natalia 1.016 (1.001-1.035) 04/18/20 00:37 Urine Protein 1+ (Negative) H 04/18/20 00:37 Urine Glucose (UA) Negative (Negative) 04/18/20 00: Urine Ketones Negative (Negative) 04/18/20 00:37 Urine Blood Small (Negative) H 04/18/20 00:37 Urine Nitrite Negative (Negative) 04/18/20 00: Urine Bilirubin Negative (Negative) 04/18/20 00: Urine Urobilinogen <2.0 mg/dL (<2.0) 04/18/20 00:37 Ur Leukocyte Esterase Negative (Negative) 04/18/20 00:37 Urine RBC 10 /hpf (0-5) H 04/18/20 00:37 Urine WBC 2 /hpf (0-5) 04/18/20 00:37 Hyaline Casts 13 /lpf (0-2) H 04/18/20 00:37 Urine Mucus Rare /hpf (None) H 04/18/20 00:37 PT/INR, D-dimer PT 11.8 sec (9.0-12.0) 04/18/20 00:37 INR 1.2 (<1.2) H 04/18/20 00:37 Abnormal lab findings: Abnormal Labs 04/18/20 04/18/20 04/18/20 00:37 00:37 00:37 RBC Hgb MCV 102.1 H MCHC 30.7 L Plt Count Lymphocytes # (Manual) 0.99 L Metamyelocytes # (Man) 0.14 H INR 1.2 H Sodium Potassium BUN Creatinine Glucose POC Glucose (mg/dL) Plasma Lactic Acid Dl Calcium Phosphorus AST ALT Total Protein Albumin Urine Protein 1+ H Urine Blood Small H Urine RBC 10 H Hyaline Casts 13 H Urine Mucus Rare H 04/18/20 04/18/20 04/18/20 00:37 00:37 03:49 RBC Hgb MCV MCHC Plt Count Lymphocytes # (Manual) Metamyelocytes # (Man) INR Sodium 135 L Potassium 6.5 H* BUN 23 H 23 H Creatinine 2.08 H 1.84 H Glucose 129 H 119 H POC Glucose (mg/dL) Plasma Lactic Acid Dl 4.2 H* Calcium 8.1 L 7.8 L Phosphorus 5.7 H AST 91 H 100 H ALT 37 H Total Protein 6.2 L Albumin 3.3 L Urine Protein Urine Blood Urine RBC Hyaline Casts Urine Mucus 04/18/20 04/18/20 04/18/20 03:49 03:49 04:56 RBC 3.37 L Hgb 10.7 L MCV 102.1 H MCHC Plt Count 140 L Lymphocytes # (Manual) Metamyelocytes # (Man) INR Sodium Potassium BUN Creatinine Glucose POC Glucose (mg/dL) 118 H Plasma Lactic Acid Dl 2.2 H* Calcium Phosphorus AST ALT Total Protein Albumin Urine Protein Urine Blood Urine RBC Hyaline Casts Urine Mucus - Diagnostic Findings Chest x-ray: image reviewed Assessment and Plan Plan: 1 acute bilateral pneumonia right more than left 2 sepsis with secondary hypotension due to underlying pneumonia 3 acute kidney injury with hyperkalemia. 4 acute rhythm disturbance with intraventricular rhythm and bradycardia, likely secondary to underlying hyperkalemia and improved and the patient is currently having a lower rate atrial fibrillation. Meanwhile, the patient was started on a combination of Dopamine/Levofed . Echocardiogram is to follow. CVP monitor is at 20. The patient's urine output is adequate and the patient converted to sinus rhythm and the patient was taken off the dopamine and currently is levo fed is running at 0.14 g per KG per minute. 5 coronary artery disease, history of and the patient undergone previous stenting of the LAD 6 hypertension. 7 peripheral neuropathy 8 Fibromyalgia 9 altered mental status, improved and the patient neuro status is currently inactive in stable and back to its baseline Plan Continue the current antibiotic coverage includes a combination of Zithromax and vancomycin. The choice of antibiotics was made based on the patient's ALLERGY p rofile Obtain blood cultures Monitor mental status Monitor renal function Monitor cardiac rhythm which is currently back to normal sinus rhythm. Wean off levo fed and the patient is currently off dopamine Potassium level is normalized Check this patient for Covid 19 infection We'll continue to follow and keep the patient ICU for now.
--- NOTE | 2020-04-18 14:30 | P.CRDCN ---
History of Present Illness Consult date: 04/18/20 Reason for Consult (text): bradycardia Chief complaint: mental status changes, weakness and fatigue History of present illness: this is a 74-year-old female with history of coronary artery disease with prior LAD stenting, hypertension, hyperlipidemia, fibromyalgia, prior CVA, hypothyroidism who was found to have some mental status changes, and associated weakness and fatigue. Patient was also having some productive cough of yellow sputum. No evidence of any chest discomfort. Because of these in mental status changes the brought the patient in to the emergency room for further evaluation and treatment. In the emergency room the patient was found to be hypotensive and significantly bradycardic with an idioventricular rhythm, heart rate in the 30s, wide complex. Once the laboratory data came back it was noted that the patient's potassium level was 6.5, patient also had evidence of acute kidney injury.blood pressure on arrival here 112/70 with a heart rate in the 30s, 88% on room air. Afebrile.her blood pressure this morning 120/60 with a heart rate in the 60s, 96% on room air.chest x-ray on presentation here showed patchy [place] at the lung bases and in the perihilar regions, right g reater than the left. Differential consideration includes bilateral pneumonia versus asymmetric pulmonary edema. No evidence of any large pleural effusion. Cardiomegaly was noted.her EKG showed an idioventricular rhythm with a left bundle-branch block pattern.patient had a central venous catheter placed, chest x-ray was performed following that with no evidence of any complications.an echocardiogram with Doppler study was performed which revealed an ejection fraction of 60-65%, mild to moderate mitral regurgitation.laboratory data was reviewed, admission labs White blood cell count 7.1, hemoglobin 12.1, platelet count 167.sodium 135, potassium 6.5, chloride 100 CO2 23 BUN 23 creatinine 2.08. Lactic acid on admission 4.2 calcium 8.1 phosphorus 5.7 magnesium 1.8, troponin 0.012, BNP level 4090. This morning's labs, white blood cell count 8.6, hemoglobin 10.7, platelet count 140.sodium 139, potassium 4.7, BUN 23, creatinine 1.8. Plasma lactic acid repeat was 2.2 and subsequent 1.5. The patient was treated for the hyperkalemia in the emergency room with bicarbonate and D50 insulin, as noted her potassium level did come down to 4.7. Heart rate came up into the 50 range, much more [id number] QRS on subsequent EKG. Patient has been initiated on antibiotics for right lower lobe pneumonia. She was also given a liter of fluids and is still receiving IV fluids at 75 mL per hour. Patient is also on dopamine currently and norepinephrine. Past Medical History Past Medical History: Coronary Artery Disease (CAD), Fibromyalgia, Hypertension Additional Past Medical History / Comment(s): stent to LADx3, last cath was in 2018, Follows with Dr Ellison. CVA. peripheral neuropathy. Hypothyroid. osteoporosis. hyperlipidemia History of Any Multi-Drug Resistant Organisms: None Reported Past Surgical History: Bladder Surgery, Cholecystectomy, Heart Catheterization W ith Stent, Hysterectomy Additional Past Surgical History / Comment(s): EGD and colonoscopy done in [facility] Past Psychological History: No Psychological Hx Reported Smoking Status: Never smoker Past Alcohol Use History: Occasional Past Drug Use History: None Reported - Past Family History family Family Medical History: No Reported History Medications and Allergies Home Medications Medication Instructions Recorded Confirmed Type Atorvastatin [Lipitor] 20 mg PO DAILY 04/18/20 04/18/20 History Calcium Citrate/Vitamin D3 1 cap PO BID 04/18/20 04/18/20 History [Citracal + D Maximum Caplet] Cetirizine HCl [Zyrtec] 10 mg PO DAILY 04/18/20 04/18/20 History Clopidogrel [Plavix] 75 mg PO DAILY 04/18/20 04/18/20 History Denosumab [Prolia] 60 mg SQ Q180D 04/18/20 04/18/20 History Diltiazem HCl [Cardizem CD] 240 mg PO BID 04/18/20 04/18/20 History Donepezil HCl [Aricept] 10 mg PO HS 04/18/20 04/18/20 History Esomeprazole Magnesium [NexIUM] 40 mg PO BID 04/18/20 04/18/20 History Gabapentin 800 mg PO QID 04/18/20 04/18/20 History Hyoscyamine Sulfate [Levbid] 0.375 mg PO Q12H 04/18/20 04/18/20 History Levothyroxine Sodium 112 mcg PO DAILY 04/18/20 04/18/20 History Lysine [l-Lysine] 1,000 mg PO DAILY 04/18/20 04/18/20 History Metoprolol Tartrate [Lopressor] 50 mg PO BID 04/18/20 04/18/20 History Nitroglycerin Extended Release 6.5 mg PO TID 04/18/20 04/18/20 History [Nitro-Bid] Nitroglycerin Sl Tabs [Nitrostat] 0.4 mg SL Q5M PRN 04/18/20 04/18/20 History Omeprazole 20 mg PO AC-BRKFST 04/18/20 04/18/20 History Potassium Chloride ER [K-Dur 20] 20 meq PO DAILY 04/18/20 04/18/20 History Ranolazine [Ranexa] 500 mg PO BID 04/18/20 04/18/20 History Sennosides/Docusate Sodium [Colace 1 tab PO BID 04/18/20 04/18/20 History 2-in-1 Tablet] Torsemide [Demadex] 20 mg PO TID 04/18/20 04/18/20 History diphenhydrAMINE [Benadryl] 25 mg PO HS 04/18/20 04/18/20 History fentaNYL 100MCG/HR PATCH 1 patch TRANSDERM Q72H 04/18/20 04/18/20 History [Duragesic 100MCG/HR] Allergies Allergy/AdvReac Type Severity Reaction Status Date / Time aspirin Allergy Unknown Verified 04/18/20 09:12 cephalexin [From Keflex] Allergy Unknown Verified 04/18/20 09:12 ciprofloxacin [From Cipro] Allergy Unknown Verified 04/18/20 09:12 codeine Allergy Unknown Verified 04/18/20 09:12 ibuprofen [From Motrin] Allergy Unknown Verified 04/18/20 09:12 Iodinated Contrast Media Allergy Unknown Verified 04/18/20 09:12 latex Allergy Unknown Verified 04/18/20 09:12 naproxen Allergy Unknown Verified 04/18/20 09:12 Penicillins Allergy Unknown Verified 04/18/20 09:12 quinine [From Quine] Allergy Unknown Verified 04/18/20 09:12 sulfamethoxazole Allergy Unknown Verified 04/18/20 09:12 [From Bactrim] trimethoprim [From Bactrim] Allergy Unknown Verified 04/18/20 09:12 Physical Exam Vitals: Vital Signs Temp Pulse Pulse Resp BP Pulse Ox 04/18/20 13:00 62 26 H 119/65 96 04/18/20 12:30 66 15 100/81 97 04/18/20 12:00 66 11 L 124/63 95 04/18/20 11:30 68 13 120/67 94 L 04/18/20 11:00 64 24 118/102 96 04/18/20 10:30 60 16 100/61 95 04/18/20 10:00 62 18 118/53 97 04/18/20 09:30 62 18 127/108 97 04/18/20 09:15 59 L 12 117/63 94 L 04/18/20 09:00 57 L 12 105/55 04/18/20 08:45 57 L 12 110/45 04/18/20 08:30 57 L 18 107/54 97 04/18/20 08:15 66 18 94/43 96 04/18/20 08:00 96.5 F L 58 L 16 109/56 93 L 04/18/20 07:45 54 L 18 76/47 92 L 04/18/20 07:32 56 L 04/18/20 07:30 56 L 22 101/42 100 04/18/20 07:20 54 L 98 04/18/20 07:15 53 L 20 98/50 94 L 04/18/20 07:00 55 L 18 106/42 97 04/18/20 06:45 57 L 19 98/50 94 L 04/18/20 06:30 52 L 22 103/57 94 L 04/18/20 06:15 50 L 21 108/47 96 04/18/20 06:00 51 L 16 108/47 96 04/18/20 05:45 53 L 28 H 100/45 97 04/18/20 05:30 54 L 11 L 103/44 95 04/18/20 05:15 52 L 14 100/85 98 04/18/20 05:13 97.6 F 51 L 11 L 103/44 98 04/18/20 04:31 46 L 16 86/40 96 04/18/20 04:15 41 L 16 88/40 9 L 04/18/20 04:00 41 L 16 77/38 100 04/18/20 03:45 43 L 16 85/42 97 04/18/20 03:30 42 L 16 89/49 98 04/18/20 03:15 45 L 16 83/46 97 04/18/20 03:00 40 L 16 75/45 96 04/18/20 02:45 44 L 16 61/44 98 04/18/20 02:30 42 L 16 130/56 97 04/18/20 02:09 40 L 16 101/51 98 04/18/20 01:59 38 L 16 98 04/18/20 01:46 43 L 16 113/56 90 L 04/18/20 01:07 39 L 04/18/20 01:06 40 L 16 139/64 95 04/18/20 00:52 40 L 16 136/60 94 L 04/18/20 00:23 97.6 F 36 L 14 112/75 88 L Intake and Output 04/17/20 04/18/20 04/18/20 22:59 06:59 14:59 Intake Total 986.916 5553 Output Total 75 200 Balance 262.935 8078 Intake: IV 260 910 Sodium Chloride 0.9% 1, 260 910 000 ml @ 130 mls/hr IV . Q7H42M STA Rx#:[id number] Intake, IV Titration 10.189 Amount DOPamine DRIP 800 mg In 3.128 Dextrose/Water 1 250ml. bag @ 5 MCG/KG/MIN 4.763 mls/hr IV .Q24H ONE Rx#: [id number] Norepinephrine 32 mg In 7.061 Sodium Chloride 0.9% 218 ml @ 0.05 MCG/KG/MIN 1. 191 mls/hr IV .Q24H MARIO Rx#:[id number] Oral 850 Output: Urine 75 200 Other: Voiding Method Indwelling Catheter Indwelling Catheter Weight 55.1 kg PHYSICAL EXAMINATION: GENERAL:74-year-old female in no acute distress at the time of my examination HEENT: Head is atraumatic, normocephalic. Pupils equal, round. Sclera anicteric. Conjunctiva are clear. Mucous membranes of the mouth are moist. Neck is supple. There is no elevated jugular venous pressure.no carotid bruit is heard. HEART EXAMINATION: [Heart S1, S2 systolic murmur is heard CHEST EXAMINATION:[ Lungs reveal decreased breath sounds at the bases bilaterally ABDOMEN: [ Soft, nontender. Bowel sounds are heard. No organomegaly noted]. EXTREMITIES:[ 2+ peripheral pulses with no evidence of peripheral edema and no calf tenderness noted]. NEUROLOGIC [patient is awake, alert and oriented X2 Results 04/18/20 03:49 04/18/20 03:49 Cardiac Enzymes 04/18/20 04/18/20 04/18/20 Range/Units 00:37 00:37 03:49 AST 91 H 100 H (14-36) U/L Lactate Dehydrogenase (313-618) U/L CK-MB (CK-2) <0.2 (0.0-2.4) ng/mL Troponin I <0.012 (0.000-0.034) ng/mL 04/18/20 Range/Units 09:48 AST (14-36) U/L Lactate Dehydrogenase 1053 H (313-618) U/L CK-MB (CK-2) (0.0-2.4) ng/mL Troponin I (0.000-0.034) ng/mL Coagulation 04/18/20 Range/Units 00:37 PT 11.8 (9.0-12.0) sec APTT 24.2 (22.0-30.0) sec CBC 04/18/20 04/18/20 Range/Units 00:37 03:49 WBC 7.1 8.6 (3.8-10.6) k/uL RBC 3.85 3.37 L (3.80-5.40) m/uL Hgb 12.1 10.7 L (11.4-16.0) gm/dL Hct 39.3 34.4 (34.0-46.0) % Plt Count 167 140 L (150-450) k/uL Comprehensive Metabolic Panel 04/18/20 04/18/20 Range/Units 00:37 03:49 Sodium 135 L 139 (137-145) mmol/L Potassium 6.5 H* 4.7 (3.5-5.1) mmol/L Chloride 100 104 (98-107) mmol/L Carbon Dioxide 23 27 (22-30) mmol/L BUN 23 H 23 H (7-17) mg/dL Creatinine 2.08 H 1.84 H (0.52-1.04) mg/dL Glucose 129 H 119 H (74-99) mg/dL Calcium 8.1 L 7.8 L (8.4-10.2) mg/dL AST 91 H 100 H (14-36) U/L ALT 28 37 H (4-34) U/L Alkaline Phosphatase 126 112 (38-126) U/L Total Protein 7.2 6.2 L (6.3-8.2) g/dL Albumin 3.9 3.3 L (3.5-5.0) g/dL Current Medications Generic Name Dose Route Start Last Admin Trade Name Freq PRN Reason Stop Dose Admin Albuterol/Ipratropium 3 ml 04/18/20 01:34 04/18/20 07:19 Ipratropium-Albuterol 3 Ml Neb INHALATION 3 ml RT-Q4H PRN Administration shortness of breath Atorvastatin Calcium 20 mg 04/18/20 09:30 04/18/20 10:04 Atorvastatin 20 Mg Tab PO 20 mg DAILY MARIO Administration Clopidogrel Bisulfate 75 mg 04/18/20 09:30 04/18/20 10:04 Clopidogrel 75 Mg Tab PO 75 mg DAILY MARIO Administration Dexamethasone 6 mg 04/18/20 10:30 04/18/20 12:17 Dexamethasone 2 Mg Tab PO 6 mg DAILY MARIO Administration Donepezil HCl 10 mg 04/18/20 21:00 Donepezil 10 Mg Tab PO HS MARIO Gabapentin 800 mg 04/18/20 13:00 04/18/20 09:40 Gabapentin 400 Mg Cap PO 800 mg QID MARIO Administration Dopamine HCl/Dextrose 800 mg/ 250 mls @ 4.763 mls/hr 04/18/20 01:55 04/18/20 03:03 IV Solution IV 04/19/20 01:54 10 mcg/kg/min .Q24H ONE 9.525 mls/hr Titration Protocol 5 MCG/KG/MIN Norepinephrine Bitartrate 32 250 mls @ 1.191 mls/hr 04/18/20 04:00 04/18/20 06:54 mg/ Sodium Chloride IV 0.14 mcg/kg/min .Q24H MARIO 3.334 mls/hr Titration Protocol 0.05 MCG/KG/MIN Vancomycin HCl 1,000 mg/ 250 mls @ 125 mls/hr 04/19/20 08:00 Sodium Chloride IVPB 04/19/20 09:59 ONCE ONE Azithromycin 500 mg/ Sodium 250 mls @ 250 mls/hr 04/19/20 09:00 Chloride IVPB DAILY MARIO Levothyroxine Sodium 112 mcg 04/18/20 09:30 04/18/20 09:44 Levothyroxine 112 Mcg Tab PO 112 mcg DAILY@0630 MARIO Administration Miscellaneous Information 1 each 04/18/20 01:34 Pneumonia Protocol Utilized 1 Each Misc PO ONCE PRN Per Protocol Miscellaneous Information 1 each 04/18/20 02:22 Vancomycin Iv Per Pharmacy 1 Each Misc MISCELLANE DIRECTED PRN Per Protocol Protocol Miscellaneous Information 1 each 04/18/20 06:28 Magnesium Replacement Protocol 1 Each Misc MISCELLANE DAILY PRN Per Protocol Protocol Naloxone HCl 0.2 mg 04/18/20 01:34 Naloxone 0.4 Mg/Ml 1 Ml Vial IV Q2M PRN Opioid Reversal Pantoprazole Sodium 40 mg 04/18/20 09:00 04/18/20 09:40 Pantoprazole 40 Mg/10 Ml Vial IV 04/18/20 21:00 40 mg DAILY MARIO Administration Pantoprazole Sodium 40 mg 04/19/20 07:30 Pantoprazole 40 Mg Tablet PO AC-BRKFST [facility] Intake and Output 04/17/20 04/18/20 04/18/20 22:59 06:59 14:59 Intake Total 606.630 4675 Output Total 75 200 Balance 532.082 6581 Intake: IV 260 910 Sodium Chloride 0.9% 1, 260 910 000 ml @ 130 mls/hr IV . Q7H42M STA Rx#:[id number] Intake, IV Titration 10.189 Amount DOPamine DRIP 800 mg In 3.128 Dextrose/Water 1 250ml. bag @ 5 MCG/KG/MIN 4.763 mls/hr IV .Q24H ONE Rx#: [id number] Norepinephrine 32 mg In 7.061 Sodium Chloride 0.9% 218 ml @ 0.05 MCG/KG/MIN 1. 191 mls/hr IV .Q24H MARIO Rx#:[id number] Oral 850 Output: Urine 75 200 Other: Voiding Method Indwelling Catheter Indwelling Catheter Weight 55.1 kg 04/18/20 03:49 04/18/20 03:49 EKG Interpretations (text) EKG shows an idioventricular rhythm Assessment and Plan Plan: Assessment and Plan #1 acute bilateral pneumonia #2 sepsis with secondary hypotension #3 hyperkalemia with evidence of acute kidney injury #4 idioventricular rhythm/bradycardia, likely secondary to hyperkalemia. Rhythm improved after her potassium level came down. dopamine discontinued. #5 coronary artery disease with prior LAD stenting #6 hypertension #7 peripheral neuropathy #8 fibromyalgia #9 mental status changes, improved Plan Dopamine has been discontinued, we will continue to monitor the patient's rhythm.TSH level is normal.a cardiogram with Doppler study revealed a normal left ventricular systolic function with mild to moderate mitral regurgitation.10 you current antibiotics as per pulmonary. Check lytes BUN and creatinine in the morning. Covid testing pending DNP note has been reviewed, I agree with a documented findings and plan of care. Patient was seen and examined.
[2020-04-18 15:14] LABS: Ferritin 244.1 ng/mL (10.0-291.0)
--- NOTE | 2020-04-18 15:32 | P.PN ---
Subjective Progress Note Date: 04/18/20 (delayed charting seen at 0850) Principal diagnosis: altered mentation Patient is a 74-year-old female with hypertension, fibromyalgia, and coronary artery disease with prior stenting who was brought to the emergency department secondary to altered mentation. The patient had recently been experiencing diarrhea for 4 weeks. She underwent a colonoscopy approximately on e week prior to admission and since that time had been having a productive cough with yellow sputum. In the ER she underwent an extensive evaluation. was concerned that she may be having a seizure she was shaking all of her limbs for more than 5 minutes and he called 911. On arrival to the ER she was significantly bradycardic with a pulse of 36 blood pressure 112/75 and pulse ox 88% on room air. Initial laboratory analysis showed white blood cell count of 7.1, 0.99 lymphocytes, and elevated metamyelocytes. Sodium 135, potassium 6.5, BUN 23, creatinine 2.08, glucose 129, lactic acid 4.2, calcium 8.1, phosphorus 5.7, BNP 4090, troponin 0.012. Urinalysis was negative. Chest x-ray revealed opacities in bilateral lung bases right greater than left without significant pleural effusion. She was started on dopamine for bradycardia, given a cocktail for her hyperkalemic anemia, IV fluids, and Zithromax for pneumonia. She was admitted to the ICU. She ultimately required levo secondary to hypotension. Her potassium improved after treatment. Her lactic acid resolved. There was some concern for coping 19 and the test was sent. Patient was started on dexamethasone. Patient seen and examined at bedside. She denies any chest pain, shortness breath, nausea, or vomiting. She recounts that she has been having diarrhea for the last 4 weeks and has unable to tolerate any orals. She is running to the bathroom chronically. General: non toxic, no distress, appears older than stated age Derm: warm, dry Head: atraumatic, normocephalic, symmetric Eyes: EOMI, no lid lag, anicteric sclera Mouth: no lip lesion, mucus membranes moist Cardiovascular: S1S2 reg, no murmur, positive posterior tibial pulse bilateral, Lungs: Rhonchi bilateral , no accessory muscle use Abdominal: soft, nontender to palpation, no guarding, no appreciable organomegaly Ext: no gross muscle atrophy, no edema, no contractures Neuro: CN II-XI grossly intact, no focal neuro deficits Psych: Alert, oriented, appropriate affect Bradycardia/idioventricular rhythm -Patient is being weaned off of dopamine -Cardiology consult -Echocardiogram with ejection fraction 60-65% -Telemetry -Likely secondary to hyperkalemia -Hold Lopressor and Cardizem Acute bilateral pneumonia right greater than left -Await Covid testing results -Continue with Zithromax and vancomycin in light of patient's penicillin and cephalosporin ALLERGY. Could consider Azactam. - start dexamathasone -Follow chest x-ray -Check pro calcitonin -Fibrinogen 402, LDH 1053, CRP 11.3 Acute hypoxic respiratory failure -Treatment as above -Fentanyl patch on hold Acute kidney injury with hyperkalemia - CVP 20 indicating adequate fluid resuscitation -Hold Demadex -Avoid additional nephrotoxic agents -Renal dose vancomycin -Nephrology recommendations Coronary artery disease with prior stenting of the LAD -Plavix on hold for possible GI bleed as patient complained of coffee ground emesis. Likely resume in a.m. -Continue with when I saw -Lopressor on hold secondary to bradycardia -Continue with Lipitor Toxic metabolic encephalopathy, improved Lactic acidosis, resolved Chronic: Hypertension, fibromyalgia, peripheral neuropathy, hypothyroidism Objective - Vital Signs Vital signs: Vital Signs Temp 96.5 F L 04/18/20 08:00 Pulse 62 04/18/20 13:00 Resp 26 H 04/18/20 13:00 BP 119/65 04/18/20 13:00 Pulse Ox 96 04/18/20 13:00 Intake & Output 04/17/20 04/18/20 04/18/20 18:59 06:59 18:59 Intake Total 098.680 9475 Output Total 75 200 Balance 218.142 6351 Weight 55.1 kg Intake: IV 260 910 Sodium Chloride 0.9% 1, 260 910 000 ml @ 130 mls/hr IV . Q7H42M STA Rx#:[id number] Intake, IV Titration 10.189 Amount DOPamine DRIP 800 mg In 3.128 Dextrose/Water 1 250ml. bag @ 5 MCG/KG/MIN 4.763 mls/hr IV .Q24H ONE Rx#: [id number] Norepinephrine 32 mg In 7.061 Sodium Chloride 0.9% 218 ml @ 0.05 MCG/KG/MIN 1. 191 mls/hr IV .Q24H MARIO Rx#:[id number] Oral 850 Output: Urine 75 200 Other: Voiding Method Indwelling Catheter Indwelling Catheter - Labs CBC & Chem 7: 04/18/20 03:49 04/18/20 03:49 Labs: Abnormal Lab Results - Last 24 Hours (Table) 04/18/20 04/18/20 04/18/20 Range/Units 00:37 00:37 00:37 RBC (3.80-5.40) m/uL Hgb (11.4-16.0) gm/dL MCV 102.1 H (80.0-100.0) fL MCHC 30.7 L (31.0-37.0) g/dL Plt Count (150-450) k/uL Lymphocytes # (Manual) 0.99 L (1.0-4.8) k/uL Metamyelocytes # (Man) 0.14 H (0) k/uL INR 1.2 H (<1.2) Sodium (137-145) mmol/L Potassium (3.5-5.1) mmol/L BUN (7-17) mg/dL Creatinine (0.52-1.04) mg/dL Glucose (74-99) mg/dL POC Glucose (mg/dL) (75-99) mg/dL Plasma Lactic Acid Dl (0.7-2.0) mmol/L Calcium (8.4-10.2) mg/dL Phosphorus (2.5-4.5) mg/dL AST (14-36) U/L ALT (4-34) U/L Lactate Dehydrogenase (313-618) U/L C-Reactive Protein (<10.0) mg/L Total Protein (6.3-8.2) g/dL Albumin (3.5-5.0) g/dL Urine Protein 1+ H (Negative) Urine Blood Small H (Negative) Urine RBC 10 H (0-5) /hpf Hyaline Casts 13 H (0-2) /lpf Urine Mucus Rare H (None) /hpf 04/18/20 04/18/20 04/18/20 Range/Units 00:37 00:37 03:49 RBC (3.80-5.40) m/uL Hgb (11.4-16.0) gm/dL MCV (80.0-100.0) fL MCHC (31.0-37.0) g/dL Plt Count (150-450) k/uL Lymphocytes # (Manual) (1.0-4.8) k/uL Metamyelocytes # (Man) (0) k/uL INR (<1.2) Sodium 135 L (137-145) mmol/L Potassium 6.5 H* (3.5-5.1) mmol/L BUN 23 H 23 H (7-17) mg/dL Creatinine 2.08 H 1.84 H (0.52-1.04) mg/dL Glucose 129 H 119 H (74-99) mg/dL POC Glucose (mg/dL) (75-99) mg/dL Plasma Lactic Acid Dl 4.2 H* (0.7-2.0) mmol/L Calcium 8.1 L 7.8 L (8.4-10.2) mg/dL Phosphorus 5.7 H (2.5-4.5) mg/dL AST 91 H 100 H (14-36) U/L ALT 37 H (4-34) U/L Lactate Dehydrogenase (313-618) U/L C-Reactive Protein (<10.0) mg/L Total Protein 6.2 L (6.3-8.2) g/dL Albumin 3.3 L (3.5-5.0) g/dL Urine Protein (Negative) Urine Blood (Negative) Urine RBC (0-5) /hpf Hyaline Casts (0-2) /lpf Urine Mucus (None) /hpf 04/18/20 04/18/20 04/18/20 Range/Units 03:49 03:49 04:56 RBC 3.37 L (3.80-5.40) m/uL Hgb 10.7 L (11.4-16.0) gm/dL MCV 102.1 H (80.0-100.0) fL MCHC (31.0-37.0) g/dL Plt Count 140 L (150-450) k/uL Lymphocytes # (Manual) (1.0-4.8) k/uL Metamyelocytes # (Man) (0) k/uL INR (<1.2) Sodium (137-145) mmol/L Potassium (3.5-5.1) mmol/L BUN (7-17) mg/dL Creatinine (0.52-1.04) mg/dL Glucose (74-99) mg/dL POC Glucose (mg/dL) 118 H (75-99) mg/dL Plasma Lactic Acid Dl 2.2 H* (0.7-2.0) mmol/L Calcium (8.4-10.2) mg/dL Phosphorus (2.5-4.5) mg/dL AST (14-36) U/L ALT (4-34) U/L Lactate Dehydrogenase (313-618) U/L C-Reactive Protein (<10.0) mg/L Total Protein (6.3-8.2) g/dL Albumin (3.5-5.0) g/dL Urine Protein (Negative) Urine Blood (Negative) Urine RBC (0-5) /hpf Hyaline Casts (0-2) /lpf Urine Mucus (None) /hpf 04/18/20 Range/Units 09:48 RBC (3.80-5.40) m/uL Hgb (11.4-16.0) gm/dL MCV (80.0-100.0) fL MCHC (31.0-37.0) g/dL Plt Count (150-450) k/uL Lymphocytes # (Manual) (1.0-4.8) k/uL Metamyelocytes # (Man) (0) k/uL INR (<1.2) Sodium (137-145) mmol/L Potassium (3.5-5.1) mmol/L BUN (7-17) mg/dL Creatinine (0.52-1.04) mg/dL Glucose (74-99) mg/dL POC Glucose (mg/dL) (75-99) mg/dL Plasma Lactic Acid Dl (0.7-2.0) mmol/L Calcium (8.4-10.2) mg/dL Phosphorus (2.5-4.5) mg/dL AST (14-36) U/L ALT (4-34) U/L Lactate Dehydrogenase 1053 H (313-618) U/L C-Reactive Protein 11.3 H (<10.0) mg/L Total Protein (6.3-8.2) g/dL Albumin (3.5-5.0) g/dL Urine Protein (Negative) Urine Blood (Negative) Urine RBC (0-5) /hpf Hyaline Casts (0-2) /lpf Urine Mucus (None) /hpf
[2020-04-18 16:26] LABS: HCT 32.9 % (34.0-46.0); HGB 10.3 gm/dL (11.4-16.0); Hypochromasia Marked; MCH 32.5 pg (25.0-35.0); MCHC 31.3 g/dL (31.0-37.0); MCV 103.7 fL (80.0-100.0); Macrocytosis Slight; Mean Platelet Volume 8.5; Platelet Count 149 k/uL (150-450); RBC 3.17 m/uL (3.80-5.40)
[2020-04-18 16:36] LABS: Calcium 7.7 mg/dL (8.4-10.2); Potassium 4.8 mmol/L (3.5-5.1)
[2020-04-18] MEDS: GABAPENTIN 400 MG CAP PO SCH (20:36)
[2020-04-18] MEDS: DONEPEZIL 10 MG TAB PO SCH (20:36)
[2020-04-18] MEDS: SODIUM CHLORIDE 0.9% 1,000 ML IV SCH (20:36)
[2020-04-19] MEDS: NOREPINEPHRINE 32 MG in SODIUM CHLORIDE 0.9% 218 ML IV SCH (03:21)
[2020-04-19] MEDS: SODIUM CHLORIDE 0.9% 1,000 ML IV SCH ×3 (04:07→19:15)
[2020-04-19 04:08] LABS: Basophils % (A) 0 %; Eosinophils % (A) 0 %; HCT 30.3 % (34.0-46.0); HGB 9.5 gm/dL (11.4-16.0); Hypochromasia Moderate; Lymphocytes # (A) 0.5 k/uL (1.0-4.8); Lymphocytes % (A) 7 %; MCH 32.3 pg (25.0-35.0); MCHC 31.4 g/dL (31.0-37.0); MCV 102.9 fL (80.0-100.0); Macrocytosis Slight; Monocytes # (A) 0.2 k/uL (0-1.0); Monocytes % (A) 3 %; Neutrophils # (A) 6.1 k/uL (1.3-7.7); Neutrophils % (A) 89 %; Platelet Count 145 k/uL (150-450); RBC 2.94 m/uL (3.80-5.40); RDW 14.4 % (11.5-15.5); WBC 6.8 k/uL (3.8-10.6)
[2020-04-19 04:18] LABS: Magnesium 2.1 mg/dL (1.6-2.3); Phosphorus 2.5 mg/dL (2.5-4.5); Potassium 4.7 mmol/L (3.5-5.1); Total Bilirubin 0.4 mg/dL (0.2-1.3); Total Protein 5.8 g/dL (6.3-8.2)
[2020-04-19] MEDS ORDERED: Phosphorus Replacement Protoco 1 EACH MISC MISCELLANE PRN (04:20)
[2020-04-19] MEDS ORDERED: SODIUM PHOSPHATE 10 MMOL in SODIUM CHLORIDE 0.9% 100 ML IVPB ONE (04:30)
[2020-04-19] MEDS: LEVOTHYROXINE 112 MCG TAB PO SCH (05:25)
--- NOTE | 2020-04-19 07:11 | XR ---
EXAMINATION TYPE: XR chest 1V portable DATE OF EXAM: 04/19/2020 CLINICAL HISTORY: Difficulty breathing progress study. TECHNIQUE: Single AP portable semiupright view of the chest is obtained. COMPARISON: Chest x-ray from one day earlier FINDINGS: Stable right internal jugular central venous catheter. Persistent cardiomegaly. Persistent reticular interstitial changes. Worsening diffuse right lung opac ities. Stable small to tiny bilateral pleural effusions. Stable left basilar opacity. No pneumothorax bilaterally. Osseous structures are intact. IMPRESSION: Cardiomegaly and chronic parenchymal changes with small to tiny bilateral pleural effusio ns and patchy left basilar acute atelectasis and/or infiltrate. No significant interval change. Worse raheel right lung multifocal acute infiltrate and/or edema noted.
[2020-04-19] MEDS ORDERED: PANTOPRAZOLE 40 MG TABLET PO SCH (07:30)
[2020-04-19] MEDS ORDERED: VANCOMYCIN 1,000 MG in SODIUM CHLORIDE 0.9% 250 ML IVPB ONE (08:00)
[2020-04-19] MEDS: GABAPENTIN 400 MG CAP PO SCH ×3 (08:16→21:43)
[2020-04-19] MEDS: dexAMETHasone 2 MG TAB PO SCH (08:16)
[2020-04-19] MEDS: ATORVASTATIN 20 MG TAB PO SCH (08:17)
[2020-04-19] MEDS: AZITHROMYCIN 500 MG in SODIUM CHLORIDE 0.9% 250 ML IVPB SCH (08:17)
[2020-04-19] MEDS: CLOPIDOGREL 75 MG TAB PO SCH (08:17)
[2020-04-19] MEDS ORDERED: MEROPENEM 2 GM in SODIUM CHLORIDE 0.9% 100 ML IVPB ONE (09:30)
[2020-04-19] MEDS ORDERED: ENOXAPARIN 40 MG/0.4 ML SYRINGE SQ SCH (11:45)
--- NOTE | 2020-04-19 11:46 | P.PN ---
Subjective Progress Note Date: 04/19/20 this is a 74-year-old female with history of coronary artery disease with prior LAD stenting, hypertension, hyperlipidemia, fibromyalgia, prior CVA, hypothyroidism who was found to have some mental status changes, and associated weakness and fatigue. Patient was also having some productive cough of yellow sputum. No evidence of any chest discomfort. Because of these in mental status changes the brought the patient in to the emergency room for further evaluation and treatment. In the emergency room the patient was found to be hypotensive and significantly bradycardic with an idioventricular rhythm, heart rate in the 30s, wide complex. Once the laboratory data came back it was noted that the patient's potassium level was 6.5, patient also had evidence of acute kidney injury.blood pressure on arrival here 112/70 with a heart rate in the 30s, 88% on room air. Afebrile.her blood pressure this morning 120/60 with a heart rate in the 60s, 96% on room air.chest x-ray on presentation here showed patchy [place] at the lung bases and in the perihilar regions, right greater than the left. Differential consideration includes bilateral pneumonia versus asymmetric pulmonary edema. No evidence of any large pleural effusion. Cardiomegaly was noted.her EKG showed an idioventricular rhythm with a left bundle-branch block pattern.patient had a central venous catheter placed, chest x-ray was performed following that with no evidence of any complications.an echocardiogram with Doppler study was performed which revealed an ejection fraction of 60-65%, mild to moderate mitral regurgitation.laboratory data was reviewed, admission labs White blood cell count 7.1, hemoglobin 12.1, platelet count 167.sodium 135, potassium 6.5, chloride 100 CO2 23 BUN 23 creatinine 2.08. Lactic acid on admission 4.2 calcium 8.1 phosphorus 5.7 magnesium 1.8, troponin 0.012, BNP level 4090. This morning's labs, white blood cell count 8.6, hemoglobin 10.7, platelet count 140.sodium 139, potassium 4.7, BUN 23, creatinine 1.8. Plasma lactic acid repeat was 2.2 and subsequent 1.5. The patient was treated for the hyperkalemia in the emergency room with bicarbonate and D50 insulin, as noted her potassium level did come down to 4.7. Heart rate came up into the 50 range, much more [id number] QRS on subsequent EKG. Patient has been initiated on antibiotics for right lower lobe pneumonia. She was also given a liter of fluids and is still receiving IV fluids at 75 mL per hour. Patient is also on dopamine currently and norepinephrine. 04/19/2020 Patient remains in the intensive care unit. She is now being considered likely positive for COVID-19 infection and thus information will be obtained from the patient's nurse. Her potassium today is at 4.7. Heart rate has been in the 80s all morning. Last bradycardic episode was at 11 PM last evening which was 40 bpm. Patient was asymptomatic at that time. Blood pressure currently 128/55 and pulse ox 93%. Echocardiogram revealed revealed a normal left ventricular systolic function with mild to moderate mitral regurgitation. TSH normal. PHYSICAL EXAMINATION: Physical examination deferred due to possible Covid 19 infection. GENERAL:74-year-old female in no acute distress at the time of my examination HEENT: Head is atraumatic, normocephalic. NEUROLOGIC [patient is awake. Assessment and Plan #1 acute bilateral pneumonia #2 sepsis with secondary hypotension #3 hyperkalemia with evidence of acute kidney injury #4 idioventricular rhythm/bradycardia, likely secondary to hyperkalemia. Currently in a sinus rhythm. #5 coronary artery disease with prior LAD stenting #6 hypertension #7 peripheral neuropathy #8 fibromyalgia #9 mental status changes, improved Plan Recommend continuing current cardiac medications including Lipitor, Plavix. Cardiology will follow on an as-needed basis. Please reconsult if new concerns develop. Nurse practitioner note has been reviewed, I agree with documented findings and plan of care. Patient was seen and examined. Objective - Vital Signs Vital signs: Vital Signs Temp 97.6 F 04/19/20 04:00 Pulse 66 04/19/20 07:00 Resp 16 04/19/20 07:00 BP 128/55 04/19/20 07:00 Pulse Ox 93 L 04/19/20 07:00 Intake & Output 04/18/20 04/19/20 04/19/20 18:59 06:59 18:59 Intake Total 2821.839 2072.779 130 Output Total 1175 1295 155 Balance 1646.839 777.779 -25 Weight 60.555 kg Intake: IV 1690 1430 130 Sodium Chloride 0.9% 1, 1690 1430 130 000 ml @ 130 mls/hr IV . Q7H42M [facility] Rx#:[id number] Intake, IV Titration 31.839 162.779 Amount DOPamine DRIP 800 mg In 159.861 Dextrose/Water 1 250ml. bag @ 5 MCG/KG/MIN 4.763 mls/hr IV .Q24H [facility] Rx#: [id number] Norepinephrine 32 mg In 31.839 2.918 Sodium Chloride 0.9% 218 ml @ 0.05 MCG/KG/MIN 1. 191 mls/hr IV .Q24H [facility] Rx#:[id number] Oral 1100 480 Output: Urine 1175 1295 155 Other: Voiding Method Indwelling Catheter Indwelling Catheter - Labs CBC & Chem 7: 04/19/20 03:50 04/19/20 03:50 Labs: Abnormal Lab Results - Last 24 Hours (Table) 04/18/20 04/18/20 04/18/20 Range/Units 09:48 09:48 15:56 RBC 3.17 L (3.80-5.40) m/uL Hgb 10.3 L (11.4-16.0) gm/dL Hct 32.9 L (34.0-46.0) % MCV 103.7 H (80.0-100.0) fL Plt Count 149 L (150-450) k/uL Lymphocytes # (1.0-4.8) k/uL Sodium (137-145) mmol/L Chloride (98-107) mmol/L BUN (7-17) mg/dL Creatinine (0.52-1.04) mg/dL Glucose (74-99) mg/dL Calcium (8.4-10.2) mg/dL AST (14-36) U/L ALT (4-34) U/L Lactate Dehydrogenase 1053 H (313-618) U/L C-Reactive Protein 11.3 H (<10.0) mg/L Total Protein (6.3-8.2) g/dL Albumin (3.5-5.0) g/dL Procalcitonin 0.31 H (0.02-0.09) ng/mL 04/18/20 04/19/20 04/19/20 Range/Units 15:56 03:50 03:50 RBC 2.94 L (3.80-5.40) m/uL Hgb 9.5 L (11.4-16.0) gm/dL Hct 30.3 L (34.0-46.0) % MCV 102.9 H (80.0-100.0) fL Plt Count 145 L (150-450) k/uL Lymphocytes # 0.5 L (1.0-4.8) k/uL Sodium 135 L (137-145) mmol/L Chloride 108 H (98-107) mmol/L BUN 22 H (7-17) mg/dL Creatinine 1.59 H (0.52-1.04) mg/dL Glucose 147 H 141 H (74-99) mg/dL Calcium 7.7 L 7.0 L (8.4-10.2) mg/dL AST 64 H (14-36) U/L ALT 40 H (4-34) U/L Lactate Dehydrogenase (313-618) U/L C-Reactive Protein (<10.0) mg/L Total Protein 5.8 L (6.3-8.2) g/dL Albumin 3.0 L (3.5-5.0) g/dL Procalcitonin (0.02-0.09) ng/mL Microbiology - Last 24 Hours (Table) 04/18/20 01:58 Blood Culture - Preliminary Blood No Growth after 24 hours
--- NOTE | 2020-04-19 11:48 | P.PN ---
Subjective Progress Note Date: 04/19/20 Principal diagnosis: altered mentation Patient is a 74-year-old female with hypertension, fibromyalgia, and coronary artery disease with prior stenting who was brought to the emergency department secondary to altered mentation. The patient had recently been experiencing diarrhea for 4 weeks. She underwent a colonoscopy approximately one week prior to admission and since that time had been having a productive cough with yellow sputum. In the ER she underwent an extensive evaluation. was concerned that she may be having a seizure she was shaking all of he r limbs for more than 5 minutes and he called 911. On arrival to the ER she was significantly bradycardic with a pulse of 36 blood pressure 112/75 and pulse ox 88% on room air. Initial laboratory analysis showed white blood cell count of 7.1, 0.99 lymphocytes, and elevated metamyelocytes. Sodium 135, potassium 6.5, BUN 23, creatinine 2.08, glucose 129, lactic acid 4.2, calcium 8.1, phosphorus 5 .7, BNP 4090, troponin 0.012. Urinalysis was negative. Chest x-ray revealed opacities in bilateral lung bases right greater than left without significant pleural effusion. She was started on dopamine for bradycardia, given a cocktail for her hyperkalemic, IV fluids, and Zithromax for pneumonia. She was admitted to the ICU. She ultimately required levo secondary to hypotension. Her potassium improved after treatment and her heart rate noramlaized and she was able to come off dopamine. Her lactic acid resolved. There was some concern for COVID 19, she was placed in precautions and testing was sent. Patient was started on dexamethasone. Levophed was weaned on 04/18. Her O2 requirements continued to increase. Patient seen and examined at bedside. Feeling better today. 2 BM today (no blood per nursing), + SOB but less so than yesterday, no nausea but not hungry, no chest pain. No other complaints at this time. General: ill appearing, no distress, appears older than stated age Derm: warm, dry Head: atraumatic, normocephalic, symmetric Eyes: EOMI, no lid lag, anicteric sclera Mouth: no lip lesion, mucus membranes moist Cardiovascular: S1S2 reg, no murmur, positive posterior tibial pulse bilateral, Lungs: Rhonchi bilateral , no accessory muscle use Abdominal: soft, nontender to palpation, no guarding, no appreciable organomegaly Ext: no gross muscle atrophy, no edema, no contractures Neuro: CN II-XI grossly intact, no focal neuro deficits Psych: Alert, oriented, appropriate affect Acute bilateral pneumonia right greater than left -Await Covid testing results -Continue with Zithromax, Vancomycin, and Merrem due to allergies -Dexamathasone -Follow chest x-ray -Procalcitonin < 2 -Fibrinogen 402, LDH 1053, CRP 11.3 - repeat testing in AM Acute hypoxic respiratory failure -Treatment as above Toxic metabolic encephalopathy, improving - supportive care - Fentanyl patch on hold Coronary artery disease with prior stenting of the LAD -Plavix -Lopressor on hold secondary to bradycardia -Continue with Lipitor Bradycardia/idioventricular rhythm, resolved -Cardiology recs appreciated -Echocardiogram with ejection fraction 60-65% -Telemetry -Likely secondary to hyperkalemia -Hold Lopressor and Cardizem Acute kidney injury with hyperkalemia, improved Toxic metabolic encephalopathy, improved Lactic acidosis, resolved Chronic: Hypertension, fibromyalgia, peripheral neuropathy, hypothyroidism DVT prophylaxis: Lovenox Discussed with: Patient, nursing Anticipated discharge: 5-[address]: vs SNF A total of 35 minutes was spent on the care of this complex patient more than 50% of the time was spent in counseling and care coordination. Objective - Vital Signs Vital signs: Vital Signs Temp 97.5 F L 04/19/20 08:00 Pulse 65 04/19/20 10:00 Resp 19 04/19/20 10:00 BP 143/68 04/19/20 10:00 Pulse Ox 86 L 04/19/20 10:00 Intake & Output 04/18/20 04/19/20 04/19/20 18:59 06:59 18:59 Intake Total 2821.839 2072.779 890 Output Total 1175 1295 460 Balance 1646.839 777.779 430 Weight 60.555 kg Intake: IV 1690 1430 130 Sodium Chloride 0.9% 1, 1690 1430 130 000 ml @ 130 mls/hr IV . Q7H42M [facility] Rx#:[id number] Intake, IV Titration 31.839 162.779 760 Amount Azithromycin 500 mg In 250 Sodium Chloride 0.9% 250 ml @ 250 mls/hr IVPB DAILY [facility] Rx#:[id number] DOPamine DRIP 800 mg In 159.861 Dextrose/Water 1 250ml. bag @ 5 MCG/KG/MIN 4.763 mls/hr IV .Q24H [facility] Rx#: [id number] Norepinephrine 32 mg In 31.839 2.918 Sodium Chloride 0.9% 218 ml @ 0.05 MCG/KG/MIN 1. 191 mls/hr IV .Q24H [facility] Rx#:[id number] Sodium Chloride 0.9% 1, 260 000 ml @ 130 mls/hr IV . Q7H42M [facility] Rx#:[id number] Vancomycin 1,000 mg In 250 Sodium Chloride 0.9% 250 ml @ 125 mls/hr IVPB Q16H [facility] Rx#:[id number] Oral 1100 480 Output: Urine 1175 1295 460 Other: Voiding Method Indwelling Catheter Indwelling Catheter Indwelling Catheter # Bowel Movements 1 - Labs CBC & Chem 7: 04/19/20 03:50 04/19/20 03:50 Labs: Abnormal Lab Results - Last 24 Hours (Table) 04/18/20 04/18/20 04/18/20 Range/Units 09:48 15:56 15:56 RBC 3.17 L (3.80-5.40) m/uL Hgb 10.3 L (11.4-16.0) gm/dL Hct 32.9 L (34.0-46.0) % MCV 103.7 H (80.0-100.0) fL Plt Count 149 L (150-450) k/uL Lymphocytes # (1.0-4.8) k/uL Sodium 135 L (137-145) mmol/L Chloride (98-107) mmol/L BUN 22 H (7-17) mg/dL Creatinine 1.59 H (0.52-1.04) mg/dL Glucose 147 H (74-99) mg/dL Calcium 7.7 L (8.4-10.2) mg/dL AST (14-36) U/L ALT (4-34) U/L Total Protein (6.3-8.2) g/dL Albumin (3.5-5.0) g/dL Procalcitonin 0.31 H (0.02-0.09) ng/mL 04/19/20 04/19/20 Range/Units 03:50 03:50 RBC 2.94 L (3.80-5.40) m/uL Hgb 9.5 L (11.4-16.0) gm/dL Hct 30.3 L (34.0-46.0) % MCV 102.9 H (80.0-100.0) fL Plt Count 145 L (150-450) k/uL Lymphocytes # 0.5 L (1.0-4.8) k/uL Sodium (137-145) mmol/L Chloride 108 H (98-107) mmol/L BUN (7-17) mg/dL Creatinine (0.52-1.04) mg/dL Glucose 141 H (74-99) mg/dL Calcium 7.0 L (8.4-10.2) mg/dL AST 64 H (14-36) U/L ALT 40 H (4-34) U/L Total Protein 5.8 L (6.3-8.2) g/dL Albumin 3.0 L (3.5-5.0) g/dL Procalcitonin (0.02-0.09) ng/mL Microbiology - Last 24 Hours (Table) 04/18/20 01:58 Blood Culture - Preliminary Blood No Growth after 24 hours
--- NOTE | 2020-04-19 12:33 | P.PN ---
Subjective Progress Note Date: 04/19/20 On today's evaluation of 04/19/2020, the patient is feeling better. The patient is currently off pressors and the patient is currently off dopamine and norepinephrine infusion. Cardiac rhythm is sinus. No cardiac arrhythmias of been noted. The echocardiogram came back within normal limits. The ejection fraction is order of 6065%. There is mild to moderate mitral regurgitation. Moderate pulmonary hypertension. Meanwhile, the patient's white cell count is at 6.8. Hemoglobin is at 9.5. Renal function has normalized and the creatinine is down to 0.85. The patient had a follow-up chest x-ray that shows cardiomegaly and small tiny bilateral pleural effusions. There is also worsening of the right lung multifocal infiltration. The patient was noted on examination Zithromax and vancomycin. The patient is currently on 8 L of oxygen by nasal cannula. Note that her oxidation is improved somewhat. Earlier the patient was on 15 L and this was gradually weaned down to 10 L and currently she is on 8 L. she is doing well. She has no specific complaints pH is tolerating her diet. Dressing in bed comfortably. The pro-calcitonin level from yesterday was 0.31. Objective - Vital Signs Vital signs: Vital Signs Temp 97.5 F L 04/19/20 08:00 Pulse 65 04/19/20 10:00 Resp 19 04/19/20 10:00 BP 143/68 04/19/20 10:00 Pulse Ox 86 L 04/19/20 10:00 Intake & Output 04/18/20 04/19/20 04/19/20 18:59 06:59 18:59 Intake Total 2821.839 2072.779 890 Output Total 1175 1295 460 Balance 1646.839 777.779 430 Weight 60.555 kg Intake: IV 1690 1430 130 Sodium Chloride 0.9% 1, 1690 1430 130 000 ml @ 130 mls/hr IV . Q7H42M [facility] Rx#:[id number] Intake, IV Titration .839 162.779 760 Amount Azithromycin 500 mg In 250 Sodium Chloride 0.9% 250 ml @ 250 mls/hr IVPB DAILY [facility] Rx#:[id number] DOPamine DRIP 800 mg In 159.861 Dextrose/Water 1 250ml. bag @ 5 MCG/KG/MIN 4.763 mls/hr IV .Q24H [facility] Rx#: [id number] Norepinephrine 32 mg In 31.839 2.918 Sodium Chloride 0.9% 218 ml @ 0.05 MCG/KG/MIN 1. 191 mls/hr IV .Q24H [facility] Rx#:[id number] Sodium Chloride 0.9% 1, 260 000 ml @ 130 mls/hr IV . Q7H42M [facility] Rx#:[id number] Vancomycin 1,000 mg In 250 Sodium Chloride 0.9% 250 ml @ 125 mls/hr IVPB Q16H [facility] Rx#:[id number] Oral 1100 480 Output: Urine 1175 1295 460 Other: Voiding Method Indwelling Catheter Indwelling Catheter Indwelling Catheter # Bowel Movements 1 - Exam The patient appeared well nourished and normally developed. Vital signs as docum ented. Head exam is unremarkable. No scleral icterus or corneal arcus noted. Neck is without jugular venous distension, thyromegaly, or carotid bruits. Carotid upstrokes are brisk bilaterally. Lungs are clear to auscultation and percussion. Cardiac exam reveals the PMI to be normally sized and situated. Rhythm is regular. First and second heart sounds normal. No murmurs, rubs or gallops. Abdominal exam reveals normal bowel sounds, no masses, no organomegaly and no aortic enlargement. Extremities are nonedematous and both femoral and pedal pulses are normal.Examination of the skin revealed no evidence of significant rashes, suspicious appearing nevi or other concerning lesions.Neurologically, the patient is awake and alert and the patient does not have any focal neurological deficit. Cranial nerves are essentially intact. - Labs CBC & Chem 7: 04/19/20 03:50 04/19/20 03:50 Labs: Abnormal Lab Results - Last 24 Hours (Table) 04/18/20 04/18/20 04/18/20 Range/Units 09:48 15:56 15:56 RBC 3.17 L (3.80-5.40) m/uL Hgb 10.3 L (11.4-16.0) gm/dL Hct 32.9 L (34.0-46.0) % MCV 103.7 H (80.0-100.0) fL Plt Count 149 L (150-450) k/uL Lymphocytes # (1.0-4.8) k/uL Sodium 135 L (137-145) mmol/L Chloride (98-107) mmol/L BUN 22 H (7-17) mg/dL Creatinine 1.59 H (0.52-1.04) mg/dL Glucose 147 H (74-99) mg/dL Calcium 7.7 L (8.4-10.2) mg/dL AST (14-36) U/L ALT (4-34) U/L Total Protein (6.3-8.2) g/dL Albumin (3.5-5.0) g/dL Procalcitonin 0.31 H (0.02-0.09) ng/mL 04/19/20 04/19/20 Range/Units 03:50 03:50 RBC 2.94 L (3.80-5.40) m/uL Hgb 9.5 L (11.4-16.0) gm/dL Hct 30.3 L (34.0-46.0) % MCV 102.9 H (80.0-100.0) fL Plt Count 145 L (150-450) k/uL Lymphocytes # 0.5 L (1.0-4.8) k/uL Sodium (137-145) mmol/L Chloride 108 H (98-107) mmol/L BUN (7-17) mg/dL Creatinine (0.52-1.04) mg/dL Glucose 141 H (74-99) mg/dL Calcium 7.0 L (8.4-10.2) mg/dL AST 64 H (14-36) U/L ALT 40 H (4-34) U/L Total Protein 5.8 L (6.3-8.2) g/dL Albumin 3.0 L (3.5-5.0) g/dL Procalcitonin (0.02-0.09) ng/mL Microbiology - Last 24 Hours (Table) 04/18/20 01:58 Blood Culture - Preliminary Blood No Growth after 24 hours Assessment and Plan Plan: 1 acute bilateral pneumonia right more than left, there is some interval worsening of the right lower lobe pulmonary infiltrate and the patient continues to be an acute hypoxic respiratory failure currently on 80 extremities cannula. Protest on is mildly elevated. Still awaiting the joyner virus Covid 19 testing by PCR. Meanwhile, the patient is covered with broad-spectrum antibiotics and based on her ALLERGY profile, she was started on a combination of Zithromax, vancomycin and meropenem. 2 sepsis with secondary hypotension due to underlying pneumonia, currently on no pressors 3 acute kidney injury with hyperkalemia. Renal function is normalized and the kidney function is also normalized 4 acute rhythm disturbance with intraventricular rhythm and bradycardia, likely secondary to underlying hyperkalemia and improved and the patient is currently having a lower rate atrial fibrillation. Meanwhile, the patient was started on a combination of Dopamine/Levofed the patient is rhythm is normalized and the patient is currently off pressors and echocardiogram showed a preserved LV function., 5 coronary artery disease, history of and the patient undergone previous stenting of the LAD 6 hypertension. 7 peripheral neuropathy 8 Fibromyalgia 9 altered mental status, improved and the patient neuro status is currently inactive in stable and back to its baseline Plan Continue the current antibiotic coverage includes a combination of Zithromax and vancomycin. Adner opine in regards to the right lower lobe pneumonia which has gotten worse on today's chest x-ray. Nevertheless oxidation is stable at 8 L per minute nasal cannula. Obtain blood cultures, And the cultures are still negative for now Monitor mental status, improved and the patient's mentation is back to normal Monitor renal functionRenal function is normalized Monitor cardiac rhythm which is currently back to normal sinus rhythm. The patient is currently off pressors Potassium level is normalized Check this patient for Covid 19 infection We'll continue to follow and keep the patient ICU for now.
[2020-04-19] MEDS: PANTOPRAZOLE 40 MG TABLET PO SCH (16:35)
[2020-04-19] MEDS ORDERED: fentaNYL (PF) 50 MCG/ML 2 ML AMP IVP STA (16:57)
[2020-04-19] MEDS ORDERED: LORazepam 2 MG/ML INJ IV PRN (17:00)
[2020-04-19] MEDS ORDERED: AZITHROMYCIN 500 MG TAB PO SCH (21:00)
[2020-04-19] MEDS: DONEPEZIL 10 MG TAB PO SCH (21:43)
[2020-04-19] MEDS: MEROPENEM 2 GM in SODIUM CHLORIDE 0.9% 100 ML IVPB SCH (21:43)
[2020-04-20] MEDS ORDERED: FUROSEMIDE 10 MG/ML 2 ML VIAL IV STA (00:01)
[2020-04-20] MEDS ORDERED: FUROSEMIDE 10 MG/ML 4 ML VIAL ONE (00:11)
[2020-04-20] MEDS: VANCOMYCIN 1,000 MG in SODIUM CHLORIDE 0.9% 250 ML IVPB SCH ×2 (00:23→19:02)
[2020-04-20] MEDS: NOREPINEPHRINE 32 MG in SODIUM CHLORIDE 0.9% 218 ML IV SCH ×2 (04:46→10:33)
[2020-04-20 05:10] LABS: Basophils # (A) 0.1 k/uL (0-0.2); Basophils % (A) 0 %; Eosinophils # (A) 0.1 k/uL (0-0.7); Eosinophils % (A) 1 %; HCT 36.4 % (34.0-46.0); HGB 11.1 gm/dL (11.4-16.0); Hypochromasia Moderate; Lymphocytes # (A) 0.6 k/uL (1.0-4.8); Lymphocytes % (A) 5 %; MCH 31.5 pg (25.0-35.0); MCHC 30.6 g/dL (31.0-37.0); Macrocytosis Slight; Mean Platelet Volume 7.6; Monocytes # (A) 0.6 k/uL (0-1.0); Monocytes % (A) 5 %; Neutrophils # (A) 10.6 k/uL (1.3-7.7); Neutrophils % (A) 88 %; Platelet Count 185 k/uL (150-450); RBC 3.53 m/uL (3.80-5.40); RDW 14.8 % (11.5-15.5); WBC 12.1 k/uL (3.8-10.6)
[2020-04-20 05:31] LABS: ALT 43 U/L (4-34); AST 59 U/L (14-36); African American GFR (CKD) >90 (>60 ml/min/1.73 sqM); Albumin 3.8 g/dL (3.5-5.0); Alkaline Phosphatase 110 U/L (38-126); Anion Gap 4 mmol/L; Blood Urea Nitrogen 14 mg/dL (7-17); C Reactive Protein 18.8 mg/L (<10.0); Calcium 7.6 mg/dL (8.4-10.2); Carbon Dioxide 30 mmol/L (22-30); Chloride 111 mmol/L (98-107); Glucose 132 mg/dL (74-99); LDH 1128 U/L (313-618); Non-African American GFR(CKD) 90 (>60 ml/min/1.73 sqM); Phosphorus 1.4 mg/dL (2.5-4.5); Potassium 3.2 mmol/L (3.5-5.1); Sodium 145 mmol/L (137-145); Total Bilirubin 0.7 mg/dL (0.2-1.3); Total Protein 7.1 g/dL (6.3-8.2)
[2020-04-20] MEDS ORDERED: Potassium Replacement Protocol 1 EACH MISC MISCELLANE PRN (05:56)
[2020-04-20] MEDS: POTASSIUM CHLORIDE 20 MEQ in WATER FOR INJECTION 1 100ML.BAG IVPB SCH ×2 (06:22→10:03)
[2020-04-20] MEDS: LEVOTHYROXINE 112 MCG TAB PO SCH ×2 (06:34→09:44)
[2020-04-20] MEDS: PANTOPRAZOLE 40 MG TABLET PO SCH (06:35)
[2020-04-20] MEDS ORDERED: propofoL 100 ML IV ONE (07:08)
[2020-04-20] MEDS ORDERED: NOREPINEPHRIN 4 MG-0.9% NS PMX 4 MG/250 ML ML IV ONE (07:28)
--- NOTE | 2020-04-20 07:31 | XR ---
EXAMINATION TYPE: XR chest 1V portable DATE OF EXAM: 04/20/2020 COMPARISON: 04/19/2020 INDICATION: Respiratory distress TECHNIQUE: Single frontal view of the chest is obtained. FINDINGS: The heart size is borderline in size. The pulmonary vasculature is indistinct. Diffuse increased lung markings are present greater on the right. Findings are worsened over the inte rval. There is a right central venous catheter with the tip within the right atrium. No pneumothorax is rajwinder dent. There is silhouetting left diaphragm. IMPRESSION: 1. Worsening right lung infiltrates. Scattered left lung infiltrates are also increasing over the int erval.
[2020-04-20 07:50] LABS: ABG Base Excess 6.3 mmol/L; ABG HCO3 29 mmol/L (21-25); ABG PCO2 33 mmHg (35-45); ABG PH 7.55 (7.35-7.45); ABG PO2 359 mmHg (83-108); ABG TCO2 30 mmol/L (19-24); Allen Test Performed? Yes
--- NOTE | 2020-04-20 08:14 | XR ---
EXAMINATION TYPE: XR chest 1V portable DATE OF EXAM: 04/20/2020 COMPARISON: 04/20/2020 INDICATION: Post intubation TECHNIQUE: Single frontal view of the chest is obtained. FINDINGS: The heart size is mild prominent. The pulmonary vasculature is prominent. Diffuse increased lung markings are present bilaterally. This more focal in the right upper lobe. There is interval placement of an endotracheal tube tip 3.2 cm above the mar[place]. Nasogastric tube is been placed the tip in left upper quadrant of the abdomen. Right central venous catheter remains pres ent with the tip in the deep right atrium. IMPRESSION: 1. Bilateral lung infiltrates most focal in the right upper lobe. 2. Lines and catheters discussed above.
[2020-04-20] MEDS: SODIUM CHLORIDE 0.9% 1,000 ML IV SCH (08:42)
[2020-04-20] MEDS ORDERED: HYDROmorphone 1 MG/ML 1 ML SYRINGE IVP PRN (08:53)
[2020-04-20 09:31] LABS: ABG HCO3 29 mmol/L (21-25); ABG Oxygen Saturation 98.2 % (94-97); ABG PCO2 33 mmHg (35-45); ABG PH 7.54 (7.35-7.45); ABG PO2 103 mmHg (83-108); ABG TCO2 30 mmol/L (19-24); Allen Test Performed? Yes
[2020-04-20] MEDS: ATORVASTATIN 20 MG TAB PO SCH (09:40)
[2020-04-20] MEDS: dexAMETHasone 2 MG TAB PO SCH (09:40)
[2020-04-20] MEDS: MEROPENEM 2 GM in SODIUM CHLORIDE 0.9% 100 ML IVPB SCH ×2 (09:40→20:30)
[2020-04-20] MEDS: PANTOPRAZOLE 40 MG/10 ML VIAL IVP SCH ×2 (09:40→20:31)
[2020-04-20] MEDS: GABAPENTIN 400 MG CAP PO SCH ×4 (09:40→20:31)
[2020-04-20] MEDS: CLOPIDOGREL 75 MG TAB PO SCH (09:43)
[2020-04-20] MEDS: LORATADINE 10 MG TAB PO SCH (09:43)
[2020-04-20] MEDS: CHLORHEXIDINE GLUCONATE 15 ML CUP MUCOUS MEM SCH ×2 (09:43→20:33)
[2020-04-20] MEDS: ENOXAPARIN 60 MG/0.6 ML SYRINGE SQ SCH ×2 (10:32→20:30)
[2020-04-20 11:04] LABS: Glucose,Whole Blood 113 mg/dL (75-99)
--- NOTE | 2020-04-20 11:16 | P.PN ---
Subjective Progress Note Date: 04/20/20 Principal diagnosis: altered mentation Patient is a 74-year-old female with hypertension, fibromyalgia, and coronary artery disease with prior stenting who was brought to the emergency department secondary to altered mentation. The patient had recently been experiencing diarrhea for 4 weeks. She underwent a colonoscopy approximately one week prior to admission and since that time had been having a productive cough with yellow sputum. In the ER she underwent an extensive evaluation. was concerned that she may be having a seizure she was shaking all of he r limbs for more than 5 minutes and he called 911. On arrival to the ER she was significantly bradycardic with a pulse of 36 blood pressure 112/75 and pulse ox 88% on room air. Initial laboratory analysis showed white blood cell count of 7.1, 0.99 lymphocytes, and elevated metamyelocytes. Sodium 135, potassium 6.5, BUN 23, creatinine 2.08, glucose 129, lactic acid 4.2, calcium 8.1, phosphorus 5 .7, BNP 4090, troponin 0.012. Urinalysis was negative. Chest x-ray revealed opacities in bilateral lung bases right greater than left without significant pleural effusion. She was started on dopamine for bradycardia, given a cocktail for her hyperkalemic, IV fluids, and Zithromax for pneumonia. She was admitted to the ICU. She ultimately required levo secondary to hypotension. Her potassium improved after treatment and her heart rate noramlaized and she was able to come off dopamine. Her lactic acid resolved. There was some concern for COVID 19, she was placed in precautions and testing was sent. Patient was started on dexamethasone. Levophed was weaned on 04/18. Her O2 requirements continued to increase. Overnight on 04/19 patient had significant worsening of her respiratory status. She ultimately required intubation on the morning of 04/20. Her d-dimer was noted to be increased at 6.78 which was felt to likely be reflective of her acute pulmonary process possibly related to Covid. She was subsequently transitioned to intermediate anticoagulation. Patient seen and examined at bedside. Intubated and on propofol. Overnight events as described above. Discussed with nursing no additional concerns at this point in time. Urine output normal overnight, CVP 30 General: ill appearing, moderate distress, appears older than stated age Derm: warm, dry Head: atraumatic, normocephalic, symmetric Eyes: EOMI, no lid lag, anicteric sclera Mouth: no lip lesion, ET tube in place Cardiovascular: S1S2 tachycardia, no murmur, positive posterior tibial pulse bilateral, Lungs: Coarse breath sounds bilateral, no accessory muscle use, tachypnea, on vent with propofol and place Abdominal: soft, nontender to palpation, no guarding, no appreciable organomegaly Ext: no gross muscle atrophy, trace edema, no contractures Neuro: Moving all 4 extremities at this time, not following commands Psych: Sedated on vent, appears slightly agitated Acute bilateral pneumonia right greater than left, ARDS -Await Covid testing results -Continue with Zithromax, Vancomycin, and Merrem due to allergies -Dexamathasone -Follow chest x-ray -Procalcitonin < 2 -Fibrinogen 402, LDH 1053, CRP 11.3 - repeat testing in AM -D-dimer greater than 6. Patient started on Lovenox 80 mg twice a day -Troponin slightly elevated which is likely related to Covid and increased work of breathing. This will continue to be followed every morning for prognostic indicators as patients with Covid and elevated troponins have a 5 time increase risk of , and if this is associated with wall motion abnormalities 6 time increase risk. -Pulmonary recommendations Acute hypoxic respiratory failure -Treatment as above Toxic metabolic encephalopathy, improving - supportive care - Fentanyl patch on hold Coronary artery disease with prior stenting of the LAD -Plavix -Lopressor on hold secondary to bradycardia -Continue with Lipitor Bradycardia/idioventricular rhythm, resolved -Cardiology recs appreciated -Echocardiogram with ejection fraction 60-65% -Telemetry -Likely secondary to hyperkalemia -Hold Lopressor and Cardizem Acute kidney injury with hyperkalemia, improved Toxic metabolic encephalopathy, improved Lactic acidosis, resolved Chronic: Hypertension, fibromyalgia, peripheral neuropathy, hypothyroidism DVT prophylaxis: Lovenox Discussed with: Patient, nursing, Dr. Lino Anticipated discharge: 5-[address]: vs SNF A total of 45 minutes was spent on the care of this complex patient more than 50% of the time was spent in counseling and care coordination. Objective - Vital Signs Vital signs: Vital Signs Temp 98.6 F 04/20/20 04:00 Pulse 57 L 04/20/20 09:15 Resp 24 04/20/20 09:15 BP 154/76 04/20/20 09:15 Pulse Ox 98 04/20/20 09:15 Intake & Output 04/19/20 04/20/20 04/20/20 19:59 06:59 18:59 Intake Total 26 Output Total 325 Balance -299 Weight Intake: IV 26 .9 pressure bag CVP 3 .9 NS Arterial line 3 .9 kvo 20 Intake, IV Titration Amount Azithromycin 500 mg In Sodium Chloride 0.9% 250 ml @ 250 mls/hr IVPB DAILY MARIO Rx#:[id number] Sodium Chloride 0.9% 1, 000 ml @ 130 mls/hr IV . Q7H42M MARIO Rx#:[id number] Vancomycin 1,000 mg In Sodium Chloride 0.9% 250 ml @ 125 mls/hr IVPB Q16H MARIO Rx#:[id number] Output: Urine 325 Other: Voiding Method # Bowel Movements ABP, PAP, CO, CI - Last Documented Arterial Blood Pressure 161/65 - Labs CBC & Chem 7: 04/20/20 04:33 04/20/20 04:33 Labs: Abnormal Lab Results - Last 24 Hours (Table) 04/20/20 04/20/20 04/20/20 Range/Units 04:33 04:33 04:33 WBC 12.1 H (3.8-10.6) k/uL RBC 3.53 L (3.80-5.40) m/uL Hgb 11.1 L (11.4-16.0) gm/dL MCV 103.0 H (80.0-100.0) fL MCHC 30.6 L (31.0-37.0) g/dL Neutrophils # 10.6 H (1.3-7.7) k/uL Lymphocytes # 0.6 L (1.0-4.8) k/uL D-Dimer (<0.60) mg/L FEU ABG pH (7.35-7.45) ABG pCO2 (35-45) mmHg ABG pO2 (83-108) mmHg ABG HCO3 (21-25) mmol/L ABG Total CO2 (19-24) mmol/L ABG O2 Saturation (94-97) % Potassium 3.2 L (3.5-5.1) mmol/L Chloride 111 H (98-107) mmol/L Glucose 132 H (74-99) mg/dL POC Glucose (mg/dL) (75-99) mg/dL Calcium 7.6 L (8.4-10.2) mg/dL Phosphorus 1.4 L (2.5-4.5) mg/dL AST 59 H (14-36) U/L ALT 43 H (4-34) U/L Lactate Dehydrogenase 1128 H (313-618) U/L Troponin I 0.547 H* (0.000-0.034) ng/mL C-Reactive Protein 18.8 H (<10.0) mg/L 04/20/20 04/20/20 04/20/20 Range/Units 04:33 07:43 09:30 WBC (3.8-10.6) k/uL RBC (3.80-5.40) m/uL Hgb (11.4-16.0) gm/dL MCV (80.0-100.0) fL MCHC (31.0-37.0) g/dL Neutrophils # (1.3-7.7) k/uL Lymphocytes # (1.0-4.8) k/uL D-Dimer 6.78 H (<0.60) mg/L FEU ABG pH 7.55 H 7.54 H (7.35-7.45) ABG pCO2 33 L 33 L (35-45) mmHg ABG pO2 359 H (83-108) mmHg ABG HCO3 29 H 29 H (21-25) mmol/L ABG Total CO2 30 H 30 H (19-24) mmol/L ABG O2 Saturation 100.0 H 98.2 H (94-97) % Potassium (3.5-5.1) mmol/L Chloride (98-107) mmol/L Glucose (74-99) mg/dL POC Glucose (mg/dL) (75-99) mg/dL Calcium (8.4-10.2) mg/dL Phosphorus (2.5-4.5) mg/dL AST (14-36) U/L ALT (4-34) U/L Lactate Dehydrogenase (313-618) U/L Troponin I (0.000-0.034) ng/mL C-Reactive Protein (<10.0) mg/L 04/20/20 Range/Units 11:03 WBC (3.8-10.6) k/uL RBC (3.80-5.40) m/uL Hgb (11.4-16.0) gm/dL MCV (80.0-100.0) fL MCHC (31.0-37.0) g/dL Neutrophils # (1.3-7.7) k/uL Lymphocytes # (1.0-4.8) k/uL D-Dimer (<0.60) mg/L FEU ABG pH (7.35-7.45) ABG pCO2 (35-45) mmHg ABG pO2 (83-108) mmHg ABG HCO3 (21-25) mmol/L ABG Total CO2 (19-24) mmol/L ABG O2 Saturation (94-97) % Potassium (3.5-5.1) mmol/L Chloride (98-107) mmol/L Glucose (74-99) mg/dL POC Glucose (mg/dL) 113 H (75-99) mg/dL Calcium (8.4-10.2) mg/dL Phosphorus (2.5-4.5) mg/dL AST (14-36) U/L ALT (4-34) U/L Lactate Dehydrogenase (313-618) U/L Troponin I (0.000-0.034) ng/mL C-Reactive Protein (<10.0) mg/L Microbiology - Last 24 Hours (Table) 04/18/20 01:58 Blood Culture - Preliminary Blood No Growth after 48 hours
--- NOTE | 2020-04-20 12:29 | P.PN ---
Subjective Progress Note Date: 04/20/20 On today's evaluation of 04/19/2020, the patient is feeling better. The patient is currently off pressors and the patient is currently off dopamine and norepinephrine infusion. Cardiac rhythm is sinus. No cardiac arrhythmias of been noted. The echocardiogram came back within normal limits. The ejection fraction is order of 6065%. There is mild to moderate mitral regurgitation. Moderate pulmonary hypertension. Meanwhile, the patient's white cell count is at 6.8. Hemoglobin is at 9.5. Renal function has normalized and the creatinine is down to 0.85. The patient had a follow-up chest x-ray that shows cardiomegaly and small tiny bilateral pleural effusions. There is also worsening of the right lung multifocal infiltration. The patient was noted on examination Zithromax and vancomycin. The patient is currently on 8 L of oxygen by nasal cannula. Note that her oxidation is improved somewhat. Earlier the patient was on 15 L and this was gradually weaned down to 10 L and currently she is on 8 L. she is doing well. She has no specific complaints pH is tolerating her diet. Dressing in bed comfortably. The pro-calcitonin level from yesterday was 0.31. On 04/20/2020, the patient is having significant decompensation in her clinical condition and respiratory status. Noted the patient progressively became more hypoxic throughout the night and the patient was ultimately moved to 100% nonrebreather facemask earlier this morning. Timolol arrival, the patient was struggling to breathe and she was using accessory muscles of breathing. At that point, I reviewed the chest x-ray and there was significant worsening in the pulmonary infiltrates more so on the right. There is diffuse increased lung markings present on the right and there is also infiltration also on the left. The patient was still hemodynamically stable. She was awake. Pulse ox was in the order of 90-91%. At that point, I decided to intubate the patient placed on a mechanical ventilation. Note that the joyner virus: 19 testing is still pending. The patient appropriate calcitonin level was not elevated at 0.31. I had covered with broad-spectrum antibiotics and she was receiving a combination of IV Merrem, IV vancomycin and IV Zithromax. She has multiple ALLERGIES and shortness of antibiotics was quite limited because of her ALLERGIES. Postextubation, the patient remained hemodynamically stable. She did not require any hypotension. I put her on a pressure control mode of ventilation initially the pressure control of 22 with a rate of 28 and a PEEP of 15 with an FiO2 of 100%. Subsequent blood gases showed a pH of 7.55 with a pCO2 of 33 and pO2 of 359. I changed a pressure control to a rate of 24, The PEEP down to 12, drop the FiO2 down to 50% and subsequent blood gases showed adequate oxygenation. Post intubation, the chest x-ray showed adequate positioning of 82. The patient was also given an arterial line. No pressors was utilized. Legionella urine antigen was sent.: The joyner virus Covid 19 testing is still pending for now. The most recent blood gases showed a pH of 7.54 with a pCO2 of 33 and pO2 of 103 and this was on the above-mentioned ventilator setting. The patient currently is sedated with propofol running at 70 g per KG per minute. IV fluids are at KVO. She has a CVP of 22. He was given a dose of Lasix. Note that echo cardiac exam showed a preserved LV function. She had already mild degree of pulmonary hypertension with a PA pressures being in the mid 30s. Note that her proBNP level from today was 19,000, CRP was 18.8, LDH was 1128, troponin was at 0.547, the white cell count is at 12.1. Objective - Vital Signs Vital signs: Vital Signs Temp 98.6 F 04/20/20 04:00 Pulse 69 04/20/20 11:30 Resp 24 04/20/20 11:30 BP 147/59 04/20/20 11:30 Pulse Ox 100 04/20/20 11:30 Intake & Output 04/19/20 04/20/20 04/20/20 19:59 06:59 18:59 Intake Total 78 Output Total 525 Balance -447 Weight Intake: IV 78 .9 pressure bag CVP 9 .9 NS Arterial line 9 .9 kvo 60 Intake, IV Titration Amount Azithromycin 500 mg In Sodium Chloride 0.9% 250 ml @ 250 mls/hr IVPB DAILY [facility]IO Rx#:[id number] Sodium Chloride 0.9% 1, 000 ml @ 130 mls/hr IV . Q7H42M [facility]IO Rx#:[id number] Vancomycin 1,000 mg In Sodium Chloride 0.9% 250 ml @ 125 mls/hr IVPB Q16H [facility]IO Rx#:[id number] Output: Urine 525 Other: Voiding Method # Bowel Movements ABP, PAP, CO, CI - Last Documented Arterial Blood Pressure 170/76 - Exam Currently intubated on a mechanical ventilator. The patient has orogastric and orotracheal tube in place. The patient also has a right IJ triple lumen catheter in place. She is was sedated with propofol and she is calm and comfortable segments of the mechanical ventilator. She has a #8 orotracheal tube. Head exam was generally normal. There was no scleral icterus or corneal arcus. Mucous membranes were moist. Neck was supple and without jugular venous distension, thyromegaly, or carotid bruits. Carotids were easily palpable bilaterally. There was no adenopathy. The patient has a right IJ triple-lumen catheter in place. Lungs were clear to auscultation and percussion, and with normal diaphragmatic excursion. No wheezes or rales were noted. There are crackles in lung bases bilaterally. Breast on that equal and symmetrical. Cardiac exam revealed the PMI to be normally situated and sized. The rhythm was regular and no extrasystoles were noted during several minutes of auscultation. The first and second heart sounds were normal and physiologic splitting of the second heart sound was noted. There were no murmurs, rubs, clicks, or gallops. Abdominal exam revealed normal bowel sounds. The abdomen was soft, non-tender, and without masses, organomegaly, or appreciable enlargement of the abdominal aorta. Examination of the extremities revealed easily palpable radial, femoral and pedal pulses. There was no cyanosis, clubbing or edema. Examination of the skin revealed no evidence of significant rashes, suspicious appearing nevi or other concerning lesions. Neurologically sedated. Nevertheless, prior to the intubation process, the patient was awake and alert and she was following some simple commands although she looks quite lethargic due to respiratory failure. - Labs CBC & Chem 7: 04/20/20 04:33 04/20/20 04:33 Labs: Abnormal Lab Results - Last 24 Hours (Table) 04/20/20 04/20/20 04/20/20 Range/Units 04:33 04:33 04:33 WBC 12.1 H (3.8-10.6) k/uL RBC 3.53 L (3.80-5.40) m/uL Hgb 11.1 L (11.4-16.0) gm/dL MCV 103.0 H (80.0-100.0) fL MCHC 30.6 L (31.0-37.0) g/dL Neutrophils # 10.6 H (1.3-7.7) k/uL Lymphocytes # 0.6 L (1.0-4.8) k/uL D-Dimer (<0.60) mg/L FEU ABG pH (7.35-7.45) ABG pCO2 (35-45) mmHg ABG pO2 (83-108) mmHg ABG HCO3 (21-25) mmol/L ABG Total CO2 (19-24) mmol/L ABG O2 Saturation (94-97) % Potassium 3.2 L (3.5-5.1) mmol/L Chloride 111 H (98-107) mmol/L Glucose 132 H (74-99) mg/dL POC Glucose (mg/dL) (75-99) mg/dL Calcium 7.6 L (8.4-10.2) mg/dL Phosphorus 1.4 L (2.5-4.5) mg/dL AST 59 H (14-36) U/L ALT 43 H (4-34) U/L Lactate Dehydrogenase 1128 H (313-618) U/L Troponin I 0.547 H* (0.000-0.034) ng/mL C-Reactive Protein 18.8 H (<10.0) mg/L 04/20/20 04/20/20 04/20/20 Range/Units 04:33 07:43 09:30 WBC (3.8-10.6) k/uL RBC (3.80-5.40) m/uL Hgb (11.4-16.0) gm/dL MCV (80.0-100.0) fL MCHC (31.0-37.0) g/dL Neutrophils # (1.3-7.7) k/uL Lymphocytes # (1.0-4.8) k/uL D-Dimer 6.78 H (<0.60) mg/L FEU ABG pH 7.55 H 7.54 H (7.35-7.45) ABG pCO2 33 L 33 L (35-45) mmHg ABG pO2 359 H (83-108) mmHg ABG HCO3 29 H 29 H (21-25) mmol/L ABG Total CO2 30 H 30 H (19-24) mmol/L ABG O2 Saturation 100.0 H 98.2 H (94-97) % Potassium (3.5-5.1) mmol/L Chloride (98-107) mmol/L Glucose (74-99) mg/dL POC Glucose (mg/dL) (75-99) mg/dL Calcium (8.4-10.2) mg/dL Phosphorus (2.5-4.5) mg/dL AST (14-36) U/L ALT (4-34) U/L Lactate Dehydrogenase (313-618) U/L Troponin I (0.000-0.034) ng/mL C-Reactive Protein (<10.0) mg/L 04/20/20 Range/Units 11:03 WBC (3.8-10.6) k/uL RBC (3.80-5.40) m/uL Hgb (11.4-16.0) gm/dL MCV (80.0-100.0) fL MCHC (31.0-37.0) g/dL Neutrophils # (1.3-7.7) k/uL Lymphocytes # (1.0-4.8) k/uL D-Dimer (<0.60) mg/L FEU ABG pH (7.35-7.45) ABG pCO2 (35-45) mmHg ABG pO2 (83-108) mmHg ABG HCO3 (21-25) mmol/L ABG Total CO2 (19-24) mmol/L ABG O2 Saturation (94-97) % Potassium (3.5-5.1) mmol/L Chloride (98-107) mmol/L Glucose (74-99) mg/dL POC Glucose (mg/dL) 113 H (75-99) mg/dL Calcium (8.4-10.2) mg/dL Phosphorus (2.5-4.5) mg/dL AST (14-36) U/L ALT (4-34) U/L Lactate Dehydrogenase (313-618) U/L Troponin I (0.000-0.034) ng/mL C-Reactive Protein (<10.0) mg/L Microbiology - Last 24 Hours (Table) 04/18/20 01:58 Blood Culture - Preliminary Blood No Growth after 48 hours Assessment and Plan Plan: 1 acute bilateral pneumonia right more than left, with secondary acute hypoxic respiratory failure. The patient had significant decompensation worsening in pneumonia and bilateral pulmonary infiltrates. There was obvious decompensation despite being covered with adequate antibiotics and the patient was utilizing a combination of Zithromax, vancomycin and meropenem. The patient is currently intubated on a mechanical ventilator. Legionella urine antigen was sent. Still awaiting the joyner virus Covid 19 testing by PCR. 2 sepsis with secondary hypotension due to underlying pneumonia, currently on no pressors and the patient is hemodynamically stable with an elevated CVP of 22, LV function has been well-preserved based on echocardiogram 3 acute kidney injury with hyperkalemia. Renal function is normalized and the kidney function is also normalized 4 acute rhythm disturbance with intraventricular rhythm and bradycardia, likely secondary to underlying hyperkalemia and improved and the patient is currently having a lower rate atrial fibrillation. Meanwhile, the patient was started on a combination of Dopamine/Levofed the patient is rhythm is normalized and the patient is currently off pressors and echocardiogram showed a preserved LV function., 5 coronary artery disease, history of and the patient undergone previous stenting of the LAD 6 hypertension. 7 peripheral neuropathy 8 Fibromyalgia Plan Continue ventilator support and adequate ventilator changes were done. Keep the patient on a propofol infusion for sedation Insert an arterial line Continue the current antibiotic coverage includes a combination of Zithromax and vancomycin and troponin. I'm going to order Legionella urine antigen. Awaiting the joyner virus Covid 19 testing results Blood cultures are negative thus far Monitor cardiac rhythm which is currently back to normal sinus rhythm. The patient is currently off pressors Check this patient for Covid 19 infection We'll continue to follow and keep the patient ICU for now.Condition is critical we'll continue to follow make further recommendations based on progress. We'll given also dose of Lasix 40 mg of push and assess her urine output and monitor the CVP. Condition is critical and will continue to follow make further recommendations based on her progress. This evaluation was on a more than 30 minutes excluding time to do any procedures. Time with Patient: Greater than 30
--- NOTE | 2020-04-20 12:32 | P.PCN ---
Date of Procedure: 04/20/20 Preoperative Diagnosis: Acute hypoxic respiratory failure, bilateral pneumonia Postoperative Diagnosis: Acute hypoxic respiratory failure, bilateral pneumonia Procedure(s) Performed: 1 Intubation 2 Insertion of an arterial line Anesthesia: local Surgeon: Ck Lino Estimated Blood Loss (ml): 0 Pathology: none sent Condition: other Disposition: ICU Operative Findings: Intubation: A time-out was completed verifying correct patient, procedure, site, positioning, and special equipment if applicable. The patient was placed in a flat position. Sedation was obtained using propofol . The patient was easily ventilated using an ambu bag. The MAC 4 BLADE was used and inserted into the oropharynx at which time there was a Grade 1 view of the vocal cords. A 7.0- khmer endotracheal tube was inserted and visualized going through the vocal cords. The stylette was removed. Colorimetric change was visualized on the CO2 meter. Breath sounds were heard in both lung dwyer equally. The endotracheal tube was placed at 23 cm, measured at the teeth. A chest x-ray was ordered to assess for pneumothorax and verify endotrachealtube placement. Estimated Blood Loss: 0 The patient tolerated the procedure well and there were no complications. Insertion of arterial line: Indication: Hemodynamic monitoring. A time-out was completed verifying correct patient, procedure, site, p ositioning, and implant(s) or special equipment if applicable. Allens test was performed to ensure adequate perfusion. The patient's left radial artery was prepped and draped in sterile fashion. 1% Lidocaine was used to anesthetize the area. An 18G Arrow arterial line was introduced into the left radial artery. The catheter was threaded over the guide wire and the needle was removed with appropriate pulsatile blood return. Blood loss was minimal. The catheter was then sutured in place to the skin and a sterile dressing applied. Perfusion to the extremity distal to the point of catheter insertion was checked and found to be adequate. The patient tolerated the procedure well and there were no complications.
[2020-04-20] MEDS: AZITHROMYCIN 500 MG in SODIUM CHLORIDE 0.9% 250 ML IVPB SCH (13:09)
[2020-04-20] MEDS ORDERED: FUROSEMIDE 10 MG/ML 4 ML VIAL IV STA (13:40)
[2020-04-20 19:09] LABS: Glucose,Whole Blood 125 mg/dL (75-99)
[2020-04-20] MEDS: POTASSIUM PHOSPHATE 10 MMOL in SODIUM CHLORIDE 0.9% 250 ML IV SCH ×2 (20:29→23:01)
[2020-04-20] MEDS: POTASSIUM BICARBONATE/CIT AC 20 MEQ TABLET.EFF NG-TUBE SCH ×3 (20:30→23:01)
[2020-04-20] MEDS: DONEPEZIL 10 MG TAB PO SCH (20:31)
[2020-04-21 01:36] LABS: African American GFR (CKD) >90 (>60 ml/min/1.73 sqM); Anion Gap 6 mmol/L; Blood Urea Nitrogen 12 mg/dL (7-17); Carbon Dioxide 24 mmol/L (22-30); Chloride 112 mmol/L (98-107); Glucose 116 mg/dL (74-99); Non-African American GFR(CKD) >90 (>60 ml/min/1.73 sqM); Potassium 4.1 mmol/L (3.5-5.1); Sodium 142 mmol/L (137-145)
[2020-04-21 05:20] LABS: ABG HCO3 23 mmol/L (21-25); ABG Oxygen Saturation 99.3 % (94-97); ABG PCO2 23 mmHg (35-45); ABG PO2 204 mmHg (83-108); ABG TCO2 24 mmol/L (19-24); Allen Test Performed? Yes
[2020-04-21 05:23] LABS: ABG PH 7.62 (7.35-7.45)
[2020-04-21 05:42] LABS: Basophils % (A) 0 %; Eosinophils % (A) 0 %; HCT 34.7 % (34.0-46.0); HGB 11.1 gm/dL (11.4-16.0); Lymphocytes # (A) 1.3 k/uL (1.0-4.8); Lymphocytes % (A) 11 %; MCH 31.5 pg (25.0-35.0); MCV 98.7 fL (80.0-100.0); Mean Platelet Volume 9.1; Monocytes # (A) 0.5 k/uL (0-1.0); Monocytes % (A) 4 %; Neutrophils # (A) 9.3 k/uL (1.3-7.7); Neutrophils % (A) 84 %; Platelet Count 176 k/uL (150-450); RBC 3.51 m/uL (3.80-5.40); WBC 11.1 k/uL (3.8-10.6)
[2020-04-21 06:11] LABS: D-Dimer 0.99 mg/L FEU (<0.60); Partial Thromboplastin Time 30.8 sec (22.0-30.0); Prothrombin Time 10.5 sec (9.0-12.0)
[2020-04-21 06:21] LABS: ALT 28 U/L (4-34); AST 43 U/L (14-36); African American GFR (CKD) >90 (>60 ml/min/1.73 sqM); Albumin 2.8 g/dL (3.5-5.0); Alkaline Phosphatase 86 U/L (38-126); Anion Gap 5 mmol/L; Blood Urea Nitrogen 12 mg/dL (7-17); Carbon Dioxide 22 mmol/L (22-30); Chloride 114 mmol/L (98-107); Creatine Kinase 277 U/L (30-135); Glucose 111 mg/dL (74-99); LDH 1022 U/L (313-618); Magnesium 1.9 mg/dL (1.6-2.3); Non-African American GFR(CKD) >90 (>60 ml/min/1.73 sqM); Phosphorus 1.4 mg/dL (2.5-4.5); Sodium 141 mmol/L (137-145); Total Bilirubin 0.9 mg/dL (0.2-1.3); Total Protein 5.8 g/dL (6.3-8.2)
[2020-04-21] MEDS: LEVOTHYROXINE 112 MCG TAB PO SCH (06:58)
[2020-04-21] MEDS ORDERED: VANCOMYCIN TROUGH DUE 1 EACH MISC MISCELLANE ONE (07:00)
[2020-04-21 07:01] LABS: C Reactive Protein 121.6 mg/L (<10.0)
[2020-04-21] MEDS: NOREPINEPHRINE 32 MG in SODIUM CHLORIDE 0.9% 218 ML IV SCH (07:49)
[2020-04-21] MEDS: POTASSIUM BICARBONATE/CIT AC 20 MEQ TABLET.EFF NG-TUBE SCH ×2 (07:49→09:29)
[2020-04-21] MEDS: POTASSIUM PHOSPHATE 10 MMOL in SODIUM CHLORIDE 0.9% 100 ML IV SCH ×3 (07:49→11:53)
[2020-04-21] MEDS: ATORVASTATIN 20 MG TAB PO SCH (09:29)
[2020-04-21] MEDS: LORATADINE 10 MG TAB PO SCH (09:29)
[2020-04-21] MEDS: VANCOMYCIN 1,000 MG in SODIUM CHLORIDE 0.9% 250 ML IVPB SCH ×2 (09:29→20:05)
[2020-04-21] MEDS: GABAPENTIN 400 MG CAP PO SCH ×4 (09:30→20:05)
[2020-04-21] MEDS: PANTOPRAZOLE 40 MG/10 ML VIAL IVP SCH ×2 (09:30→20:04)
[2020-04-21] MEDS: CLOPIDOGREL 75 MG TAB PO SCH (09:30)
[2020-04-21] MEDS: CHLORHEXIDINE GLUCONATE 15 ML CUP MUCOUS MEM SCH ×2 (09:30→20:04)
[2020-04-21] MEDS: ENOXAPARIN 60 MG/0.6 ML SYRINGE SQ SCH ×2 (09:30→23:09)
[2020-04-21] MEDS: dexAMETHasone 2 MG TAB PO SCH (09:30)
[2020-04-21] MEDS ORDERED: FUROSEMIDE 10 MG/ML 4 ML VIAL IV STA (09:46)
--- NOTE | 2020-04-21 09:53 | XR ---
EXAMINATION TYPE: XR chest 1V portable DATE OF EXAM: 04/21/2020 COMPARISON: 04/20/2020 HISTORY: Tube placement TECHNIQUE: Single frontal view of the chest is obtained. FINDINGS: ET and NG tube stable. Right-sided central line noted. Diffuse interstitial pattern with b ilateral effusions and consolidation. IMPRESSION: Stable diffuse pleural-parenchymal changes. Correlate for diffuse pneumonia, ARDS or pul monary edema.
[2020-04-21] MEDS: MEROPENEM 2 GM in SODIUM CHLORIDE 0.9% 100 ML IVPB SCH ×2 (10:35→20:05)
--- NOTE | 2020-04-21 10:40 | P.PN ---
Subjective Progress Note Date: 04/21/20 Patient is sedated and intubated. O2 sat 100% at the time of my evaluation. No acute events overnight reported to me by nursing staff. Objective - Vital Signs Vital signs: Vital Signs Temp 97.7 F 04/21/20 08:00 Pulse 82 04/21/20 09:00 Resp 16 04/21/20 09:00 BP 150/71 04/21/20 09:00 Pulse Ox 100 04/21/20 09:00 Intake & Output 04/20/20 04/21/20 04/21/20 18:59 06:59 18:59 Intake Total 438.278 576.046 176.046 Output Total 2200 820 185 Balance -1761.722 -243.954 -8.954 Weight 60.8 kg Intake: IV 260 312 52 .9 pressure bag CVP 30 36 6 .9 NS Arterial line 30 36 6 .9 kvo 200 240 40 Intake, IV Titration 178.278 264.046 64.046 Amount propofoL 1,000 mg In 178.278 264.046 64.046 Empty Bag 1 bag @ Titrate IV .Q0M [facility] Rx#: [id number] Other 60 Output: Urine 2200 820 185 Other: Voiding Method Indwelling Catheter Indwelling Catheter Indwelling Catheter # Bowel Movements 1 ABP, PAP, CO, CI - Last Documented Arterial Blood Pressure 154/70 - Exam General: The patient is sedated and intubated Eye: there is normal conjunctiva bilaterally. Neck: The neck is supple, there is no JVD. Cardiovascular: Normal S1-S2, no S3-S4, no murmurs. Respiratory: Lungs with mechanical ventilator sounds Gastrointestinal: Abdomen is soft, nontender Musculoskeletal: There is no pedal edema. Skin: Skin is warm and dry - Labs CBC & Chem 7: 04/21/20 05:00 04/21/20 05:00 Labs: Abnormal Lab Results - Last 24 Hours (Table) 04/20/20 04/20/20 04/20/20 Range/Units 11:03 18:15 19:07 WBC (3.8-10.6) k/uL RBC (3.80-5.40) m/uL Hgb (11.4-16.0) gm/dL Neutrophils # (1.3-7.7) k/uL APTT (22.0-30.0) sec Fibrinogen (200-500) mg/dL D-Dimer (<0.60) mg/L FEU ABG pH (7.35-7.45) ABG pCO2 (35-45) mmHg ABG pO2 (83-108) mmHg ABG O2 Saturation (94-97) % Potassium 2.8 L (3.5-5.1) mmol/L Chloride (98-107) mmol/L Glucose (74-99) mg/dL POC Glucose (mg/dL) 113 H 125 H (75-99) mg/dL Calcium (8.4-10.2) mg/dL Phosphorus (2.5-4.5) mg/dL AST (14-36) U/L Lactate Dehydrogenase (313-618) U/L Creatine Kinase (30-135) U/L Troponin I (0.000-0.034) ng/mL C-Reactive Protein (<10.0) mg/L Total Protein (6.3-8.2) g/dL Albumin (3.5-5.0) g/dL 04/21/20 04/21/20 04/21/20 Range/Units 01:00 05:00 05:00 WBC 11.1 H (3.8-10.6) k/uL RBC 3.51 L (3.80-5.40) m/uL Hgb 11.1 L (11.4-16.0) gm/dL Neutrophils # 9.3 H (1.3-7.7) k/uL APTT (22.0-30.0) sec Fibrinogen (200-500) mg/dL D-Dimer (<0.60) mg/L FEU ABG pH (7.35-7.45) ABG pCO2 (35-45) mmHg ABG pO2 (83-108) mmHg ABG O2 Saturation (94-97) % Potassium 3.0 L (3.5-5.1) mmol/L Chloride 112 H 114 H (98-107) mmol/L Glucose 116 H 111 H (74-99) mg/dL POC Glucose (mg/dL) (75-99) mg/dL Calcium 7.0 L 7.0 L (8.4-10.2) mg/dL Phosphorus 1.4 L (2.5-4.5) mg/dL AST 43 H (14-36) U/L Lactate Dehydrogenase 1022 H (313-618) U/L Creatine Kinase 277 H (30-135) U/L Troponin I (0.000-0.034) ng/mL C-Reactive Protein 121.6 H (<10.0) mg/L Total Protein 5.8 L (6.3-8.2) g/dL Albumin 2.8 L (3.5-5.0) g/dL 04/21/20 04/21/20 04/21/20 Range/Units 05:00 05:00 05:18 WBC (3.8-10.6) k/uL RBC (3.80-5.40) m/uL Hgb (11.4-16.0) gm/dL Neutrophils # (1.3-7.7) k/uL APTT 30.8 H (22.0-30.0) sec Fibrinogen 526 H (200-500) mg/dL D-Dimer 0.99 H (<0.60) mg/L FEU ABG pH 7.62 H* (7.35-7.45) ABG pCO2 23 L (35-45) mmHg ABG pO2 204 H (83-108) mmHg ABG O2 Saturation 99.3 H (94-97) % Potassium (3.5-5.1) mmol/L Chloride (98-107) mmol/L Glucose (74-99) mg/dL POC Glucose (mg/dL) (75-99) mg/dL Calcium (8.4-10.2) mg/dL Phosphorus (2.5-4.5) mg/dL AST (14-36) U/L Lactate Dehydrogenase (313-618) U/L Creatine Kinase (30-135) U/L Troponin I 2.650 H* (0.000-0.034) ng/mL C-Reactive Protein (<10.0) mg/L Total Protein (6.3-8.2) g/dL Albumin (3.5-5.0) g/dL Microbiology - Last 24 Hours (Table) 04/18/20 01:58 Blood Culture - Preliminary Blood No Growth after 72 hours 04/20/20 11:18 Gram Stain - Preliminary Sputum Sputum Culture - Preliminary Assessment and Plan Assessment: Patient is a 74-year-old female with hypertension, fibromyalgia, and coronary artery disease with prior stenting who was brought to the emergency department secondary to altered mentation. The patient had recently been exper iencing diarrhea for 4 weeks. She underwent a colonoscopy approximately one week prior to admission and since that time had been having a productive cough with yellow sputum. In the ER she underwent an extensive evaluation. was concerned that she may be having a seizure she was shaking all of her limbs for more than 5 minutes and he called 911. On arrival to the ER she was significantly bradycardic with a pulse of 36 blood pressure 112/75 and pulse ox 88% on room air. Chest x-ray revealed opacities in bilateral lung bases right greater than left without significant pleural effusi on. She was started on dopamine for bradycardia, given a cocktail for her hyperkalemic, IV fluids, and Zithromax for pneumonia. She was admitted to the ICU. She ultimately required levo secondary to hypotension. Her potassium improved after treatment and her heart rate noramlaized and she was able to come off dopamine. Her lactic acid resolved. There was some concern for COVID 19 by PCR was negative. Patient was started on dexamethasone. Levophed was weaned on 04/18. Her O2 requirements continued to increase. Overnight on 04/19 patient had significant worsening of her respiratory status. She ultimately required intubation on the morning of 04/20. Her d-dimer was noted to be increased at 6.78 which was felt to likely be reflective of her acute pulmonary process Acute bilateral pneumonia right greater than left, ARDS -Covid test on presentation negative but highly clinical suspicion surgery repeat test was ordered and pending -Continue with Zithromax, Vancomycin, and Merrem due to allergies -Dexamathasone -Follow chest x-ray -Procalcitonin < 2 -D-dimer greater than 6. Patient started on Lovenox 80 mg twice a day Acute hypoxic respiratory failure -Status post intubation and mechanical ventilation on 04/20. Managed by ICU Toxic metabolic encephalopathy, on presentation - Fentanyl patch on hold Coronary artery disease with prior stenting of the LAD -Plavix -Lopressor on hold secondary to bradycardia -Continue with Lipitor Bradycardia/idioventricular rhythm, resolved -Cardiology recs appreciated -Echocardiogram with ejection fraction 60-65% -Likely secondary to hyperkalemia -Hold Lopressor and Cardizem for now Acute kidney injury with hyperkalemia, improved Lactic acidosis, resolved Chronic: Hypertension, fibromyalgia, peripheral neuropathy, hypothyroidism
[2020-04-21 11:23] LABS: Ferritin 82.8 ng/mL (10.0-291.0)
[2020-04-21] MEDS: AZITHROMYCIN 500 MG in SODIUM CHLORIDE 0.9% 250 ML IVPB SCH (11:53)
[2020-04-21 12:10] LABS: Glucose,Whole Blood 73 mg/dL (75-99)
--- NOTE | 2020-04-21 15:28 | P.PN ---
Subjective Progress Note Date: 04/21/20 Principal diagnosis: Acute hypoxic respiratory failure and bilateral pneumonia, exact etiology of her pneumonia is not clear at this point. Could be secondary to covid 19 On today's evaluation of 04/19/2020, the patient is feeling better. The patient is currently off pressors and the patient is currently off dopamine and norepinephrine infusion. Cardiac rhythm is sinus. No cardiac arrhythmias of been noted. The echocardiogram came back within normal limits. The ejection fraction is order of 6065%. There is mild to moderate mitral regurgitation. Moderate pulmonary hypertension. Meanwhile, the patient's white cell count is at 6.8. Hemoglobin is at 9.5. Renal function has normalized and the creatinine is down to 0.85. The patient had a follow-up chest x-ray that shows cardiomegaly and small tiny bilateral pleural effusions. There is also worsening of the right lung multifocal infiltration. The patient was noted on examination Zithromax and vancomycin. The patient is currently on 8 L of oxygen by nasal cannula. Note that her oxidation is improved somewhat. Earlier the patient was on 15 L and this was gradually weaned down to 10 L and currently she is on 8 L. she is doing well. She has no specific complaints pH is tolerating her diet. Dressing in bed comfortably. The pro-calcitonin level from yesterday was 0.31. On 04/20/2020, the patient is having significant decompensation in her clinical condition and respiratory status. Noted the patient progressively became more hypoxic throughout the night and the patient was ultimately moved to 100% nonrebreather facemask earlier this morning. Timolol arrival, the patient was struggling to breathe and she was using accessory muscles of breathing. At that point, I reviewed the chest x-ray and there was significant worsening in the pulmonary infiltrates more so on the right. There is diffuse increased lung markings present on the right and there is also infiltration also on the left. The patient was still hemodynamically stable. She was awake. Pulse ox was in the order of 90-91%. At that point, I decided to intubate the patient placed on a mechanical ventilation. Note that the joyner virus: 19 testing is still pending. The patient appropriate calcitonin level was not elevated at 0.31. I had covered with broad-spectrum antibiotics and she was receiving a combination of IV Merrem, IV vancomycin and IV Zithromax. She has multiple ALLERGIES and shortness of antibiotics was quite limited because of her ALLERGIES. Postextubation, the patient remained hemodynamically stable. She did not require any hypotension. I put her on a pressure control mode of ventilation initially the pressure control of 22 with a rate of 28 and a PEEP of 15 with an FiO2 of 100%. Subsequent blood gases showed a pH of 7.55 with a pCO2 of 33 and pO2 of 359. I changed a pressure control to a rate of 24, The PEEP down to 12, drop the FiO2 down to 50% and subsequent blood gases showed adequate oxygenation. Post intubation, the chest x-ray showed adequate positioning of 82. The patient was also given an arterial line. No pressors was utilized. Legionella urine antigen was sent.: The joyner virus Covid 19 testing is still pending for now. The most recent blood gases showed a pH of 7.54 with a pCO2 of 33 and pO2 of 103 and this was on the above-mentioned ventilator setting. The patient currently is sedated with propofol running at 70 g per KG per minute. IV fluids are at KVO. She has a CVP of 22. He was given a dose of Lasix. Note that echo cardiac exam showed a preserved LV function. She had already mild degree of pulmonary hypertension with a PA pressures being in the mid 30s. Note that her proBNP level from today was 19,000, CRP was 18.8, LDH was 1128, troponin was at 0.547, the white cell count is at 12.1. Patient was reevaluated today on 04/21/20, remains in the ICU, intubated and mechanically ventilated. She is presently on a pressure control mode of me chanical ventilation, however after reviewing her gases and ventilator settings I recommended switching the patient to a volume control, and she is now on assist control rate of 16 tidal volume is 375, FiO2 is 40%. PEEP is at 8. ABG this morning showed a pO2 of 204 pCO2 of 23 pH of 7.62. Patient remains on propofol at 60 mcg/kg/m, she is on IV fluid at KVO. And she is to be given a sedation interruption today, and assess mental status at least. Lasix was given at 40 mg IV push times one. Patient remains on multiple antibiotics including vancomycin, meropenem, and Zithromax, however these will be adjusted as soon as we have some cultures back. And we are still waiting for the covid 19 PCR which is pending. LDH is 1022 C-reactive protein is 121. Chest x-ray shows diffuse pneumonia Objective - Vital Signs Vital signs: Vital Signs Temp 98.3 F 04/21/20 12:00 Pulse 73 04/21/20 15:00 Resp 16 04/21/20 15:00 BP 118/79 04/21/20 15:00 Pulse Ox 99 04/21/20 15:00 Intake & Output 04/20/20 04/21/20 04/21/20 18:59 06:59 18:59 Intake Total 438.278 576.046 441.322 Output Total 2200 820 1030 Balance -1761.722 -243.954 -588.678 Weight 60.8 kg 60.8 kg Intake: IV 260 312 208 .9 pressure bag CVP 30 36 24 .9 NS Arterial line 30 36 24 .9 kvo 200 240 160 Intake, IV Titration 178.278 264.046 103.322 Amount propofoL 1,000 mg In 178.278 264.046 103.322 Empty Bag 1 bag @ Titrate IV .Q0M [facility] Rx#: [id number] Tube Feeding 10 Other 120 Output: Urine 2200 820 1030 Other: Voiding Method Indwelling Catheter Indwelling Catheter Indwelling Catheter # Bowel Movements 1 ABP, PAP, CO, CI - Last Documented Arterial Blood Pressure 148/64 - Exam Physical Exam: Revealed 74-year-old female intubated, mechanically ventilated, sedated, on propofol. Head: Atraumatic, normocephalic. Endotracheal tube and orogastric tubes are intact. Patient has a size 8 endotracheal tube. HEENT:[Neck is supple.] [No neck masses.] [No thyromegaly.] [No JVD.] PERRLA, EOMI, no icterus. Right IJ triple-lumen catheter is noted. Chest: [Electrical chest expansion, crackles at the bases bilaterally. Cardiac Exam: [Normal S1 and S2, no S3 gallop, no murmur.] Abdomen: [Soft, nontender, no megaly, no rebound, no guarding, normal bowel sounds.] Extremities: [No clubbing, no edema, no cyanosis.] Good pulses bilaterally. Neurological Exam: Patient is sedated, could not be assessed. She is on propofol however sedation interruption will be done later today, and mental status will be assessed. Psychiatric: Could not be assessed. Skin: No rashes. Lymphatics: No cervical or supraclavicular lymphadenopathy. - Labs CBC & Chem 7: 04/21/20 05:00 04/21/20 12:24 Labs: Abnormal Lab Results - Last 24 Hours (Table) 04/20/20 04/20/20 04/21/20 Range/Units 18:15 19:07 01:00 WBC (3.8-10.6) k/uL RBC (3.80-5.40) m/uL Hgb (11.4-16.0) gm/dL Neutrophils # (1.3-7.7) k/uL APTT (22.0-30.0) sec Fibrinogen (200-500) mg/dL D-Dimer (<0.60) mg/L FEU ABG pH (7.35-7.45) ABG pCO2 (35-45) mmHg ABG pO2 (83-108) mmHg ABG O2 Saturation (94-97) % Potassium 2.8 L (3.5-5.1) mmol/L Chloride 112 H (98-107) mmol/L Glucose 116 H (74-99) mg/dL POC Glucose (mg/dL) 125 H (75-99) mg/dL Calcium 7.0 L (8.4-10.2) mg/dL Phosphorus (2.5-4.5) mg/dL AST (14-36) U/L Lactate Dehydrogenase (313-618) U/L Creatine Kinase (30-135) U/L Troponin I (0.000-0.034) ng/mL C-Reactive Protein (<10.0) mg/L Total Protein (6.3-8.2) g/dL Albumin (3.5-5.0) g/dL 04/21/20 04/21/20 04/21/20 Range/Units 05:00 05:00 05:00 WBC 11.1 H (3.8-10.6) k/uL RBC 3.51 L (3.80-5.40) m/uL Hgb 11.1 L (11.4-16.0) gm/dL Neutrophils # 9.3 H (1.3-7.7) k/uL APTT 30.8 H (22.0-30.0) sec Fibrinogen 526 H (200-500) mg/dL D-Dimer 0.99 H (<0.60) mg/L FEU ABG pH (7.35-7.45) ABG pCO2 (35-45) mmHg ABG pO2 (83-108) mmHg ABG O2 Saturation (94-97) % Potassium 3.0 L (3.5-5.1) mmol/L Chloride 114 H (98-107) mmol/L Glucose 111 H (74-99) mg/dL POC Glucose (mg/dL) (75-99) mg/dL Calcium 7.0 L (8.4-10.2) mg/dL Phosphorus 1.4 L (2.5-4.5) mg/dL AST 43 H (14-36) U/L Lactate Dehydrogenase 1022 H (313-618) U/L Creatine Kinase 277 H (30-135) U/L Troponin I (0.000-0.034) ng/mL C-Reactive Protein 121.6 H (<10.0) mg/L Total Protein 5.8 L (6.3-8.2) g/dL Albumin 2.8 L (3.5-5.0) g/dL 04/21/20 04/21/20 04/21/20 Range/Units 05:00 05:18 12:08 WBC (3.8-10.6) k/uL RBC (3.80-5.40) m/uL Hgb (11.4-16.0) gm/dL Neutrophils # (1.3-7.7) k/uL APTT (22.0-30.0) sec Fibrinogen (200-500) mg/dL D-Dimer (<0.60) mg/L FEU ABG pH 7.62 H* (7.35-7.45) ABG pCO2 23 L (35-45) mmHg ABG pO2 204 H (83-108) mmHg ABG O2 Saturation 99.3 H (94-97) % Potassium (3.5-5.1) mmol/L Chloride (98-107) mmol/L Glucose (74-99) mg/dL POC Glucose (mg/dL) 73 L (75-99) mg/dL Calcium (8.4-10.2) mg/dL Phosphorus (2.5-4.5) mg/dL AST (14-36) U/L Lactate Dehydrogenase (313-618) U/L Creatine Kinase (30-135) U/L Troponin I 2.650 H* (0.000-0.034) ng/mL C-Reactive Protein (<10.0) mg/L Total Protein (6.3-8.2) g/dL Albumin (3.5-5.0) g/dL Microbiology - Last 24 Hours (Table) 04/18/20 01:58 Blood Culture - Preliminary Blood No Growth after 72 hours 04/20/20 11:18 Gram Stain - Preliminary Sputum Sputum Culture - Preliminary Assessment and Plan Assessment: Impression: Acute hypoxic respiratory failure secondary to bilateral pneumonia, workup for pneumonia is pending including PCR for joynre virus. Sepsis with hypotension secondary to underlying pneumonia. Acute kidney injury with hyperkalemia. Atrial fibrillation with controlled rate. Bradycardia on presentation requiring treatment of her hyperkalemia and use of dopamine and norepinephrine temporarily. History of hypertension. And previous stenting of LAD. History of underlying coronary artery disease. History of fibromyalgia. History of peripheral neuropathy. Recommendation: Continue ventilatory support. Continue hemodynamic support as needed. Continue antibiotics presently on Zithromax vancomycin and Merrem we will change antibiotics as soon as we have cultures back. Continue nutritional support. Patient will receive enteral feeding. Continue GI and DVT prophylaxis. Continue to monitor cardiac rhythm. Awaiting PCR for the joyner virus. Patient is critically ill, and will continue to follow closely in the ICU. Prognosis is definitely guarded. Critical care time is 36 minutes Time with Patient: Greater than 30
[2020-04-21 19:07] LABS: Glucose,Whole Blood 114 mg/dL (75-99)
[2020-04-21] MEDS: DONEPEZIL 10 MG TAB PO SCH (20:04)
[2020-04-21 23:25] LABS: Glucose,Whole Blood 95 mg/dL (75-99)
[2020-04-22 05:38] LABS: Basophils % (A) 0 %; Eosinophils # (A) 0.1 k/uL (0-0.7); Eosinophils % (A) 1 %; HCT 35.4 % (34.0-46.0); HGB 11.3 gm/dL (11.4-16.0); Hypochromasia Slight; Lymphocytes # (A) 1.5 k/uL (1.0-4.8); Lymphocytes % (A) 16 %; MCH 31.6 pg (25.0-35.0); MCHC 31.9 g/dL (31.0-37.0); MCV 99.2 fL (80.0-100.0); Macrocytosis Slight; Mean Platelet Volume 8.2; Monocytes # (A) 0.3 k/uL (0-1.0); Monocytes % (A) 4 %; Neutrophils # (A) 7.8 k/uL (1.3-7.7); Neutrophils % (A) 79 %; Platelet Count 189 k/uL (150-450); RBC 3.57 m/uL (3.80-5.40); RDW 15.3 % (11.5-15.5); WBC 9.8 k/uL (3.8-10.6)
[2020-04-22 05:51] LABS: ALT 22 U/L (4-34); AST 30 U/L (14-36); African American GFR (CKD) >90 (>60 ml/min/1.73 sqM); Albumin 2.6 g/dL (3.5-5.0); Alkaline Phosphatase 72 U/L (38-126); Anion Gap 2 mmol/L; Blood Urea Nitrogen 14 mg/dL (7-17); Calcium 6.7 mg/dL (8.4-10.2); Carbon Dioxide 26 mmol/L (22-30); Chloride 115 mmol/L (98-107); Glucose 103 mg/dL (74-99); Non-African American GFR(CKD) >90 (>60 ml/min/1.73 sqM); Phosphorus 2.3 mg/dL (2.5-4.5); Potassium 3.4 mmol/L (3.5-5.1); Sodium 143 mmol/L (137-145); Total Bilirubin 0.6 mg/dL (0.2-1.3); Total Protein 5.5 g/dL (6.3-8.2)
[2020-04-22] MEDS: LEVOTHYROXINE 112 MCG TAB PO SCH (05:52)
[2020-04-22] MEDS ORDERED: SODIUM PHOSPHATE 10 MMOL in SODIUM CHLORIDE 0.9% 100 ML IVPB ONE (06:30)
[2020-04-22] MEDS: NOREPINEPHRINE 32 MG in SODIUM CHLORIDE 0.9% 218 ML IV SCH (07:05)
[2020-04-22] MEDS: PANTOPRAZOLE 40 MG/10 ML VIAL IVP SCH ×2 (08:03→20:15)
[2020-04-22] MEDS: ENOXAPARIN 60 MG/0.6 ML SYRINGE SQ SCH (08:03)
[2020-04-22] MEDS: ATORVASTATIN 20 MG TAB PO SCH (08:04)
[2020-04-22] MEDS: LORATADINE 10 MG TAB PO SCH (08:04)
[2020-04-22] MEDS: GABAPENTIN 400 MG CAP PO SCH ×4 (08:04→20:15)
[2020-04-22] MEDS: CHLORHEXIDINE GLUCONATE 15 ML CUP MUCOUS MEM SCH ×2 (08:04→20:15)
[2020-04-22] MEDS: VANCOMYCIN 1,000 MG in SODIUM CHLORIDE 0.9% 250 ML IVPB SCH ×2 (08:04→20:14)
[2020-04-22] MEDS: AZITHROMYCIN 500 MG in SODIUM CHLORIDE 0.9% 250 ML IVPB SCH (08:04)
[2020-04-22] MEDS: CLOPIDOGREL 75 MG TAB PO SCH (08:04)
[2020-04-22] MEDS: MEROPENEM 2 GM in SODIUM CHLORIDE 0.9% 100 ML IVPB SCH ×2 (08:06→20:15)
[2020-04-22] MEDS: dexAMETHasone 2 MG TAB PO SCH (08:07)
[2020-04-22] MEDS: POTASSIUM BICARBONATE/CIT AC 20 MEQ TABLET.EFF NG-TUBE SCH ×2 (08:08→09:55)
--- NOTE | 2020-04-22 08:28 | XR ---
EXAMINATION TYPE: XR chest 1V portable DATE OF EXAM: 04/22/2020 COMPARISON: Prior chest x-ray 04/21/2020 HISTORY: Intubated TECHNIQUE: Single frontal view of the chest is obtained. FINDINGS: Endotracheal tube and orogastric tube are overlying appropriate positions. Right jugular c entral venous catheter shows the distal tip in the right atrium. There are overlying leads present. N o evident pneumothorax. Apical pleural thickening is stable. Bibasilar increased density has develope d in the interval, the hemidiaphragms are partially obscured. There is blunting the costophrenic angl es. Bilateral mixed interstitial and airspace disease is again seen. The may be some improved aeratio n in the right upper lobe, patient is rotated. IMPRESSION: Correlate for congestive heart failure, there may be basilar effusions and associated at electasis versus edema, pneumonia and ARDS not excluded.
[2020-04-22 08:34] LABS: ABG Base Excess 1.8 mmol/L; ABG HCO3 25 mmol/L (21-25); ABG Oxygen Saturation 99.8 % (94-97); ABG PCO2 33 mmHg (35-45); ABG PH 7.49 (7.35-7.45); ABG PO2 156 mmHg (83-108); ABG TCO2 26 mmol/L (19-24)
[2020-04-22 08:36] LABS: Allen Test Performed? no
[2020-04-22] MEDS: FUROSEMIDE 10 MG/ML 4 ML VIAL IV SCH ×2 (09:54→20:15)
--- NOTE | 2020-04-22 10:18 | P.PN ---
Subjective Progress Note Date: 04/22/20 Patient is sedated and intubated. O2 sat 100% at the time of my evaluation. No acute events overnight reported to me by nursing staff. Fecal management system was placed yesterday secondary to frequent watery stool in the area of excoriation and erythema in the intragluteal and parianus area Objective - Vital Signs Vital signs: Vital Signs Temp 97.7 F 04/22/20 08:00 Pulse 92 04/22/20 09:00 Resp 16 04/22/20 09:00 BP 124/83 04/22/20 09:00 Pulse Ox 100 04/22/20 09:00 Intake & Output 04/21/20 04/22/20 04/22/20 18:59 06:59 18:59 Intake Total 7411.932 8204.082 870 Output Total 1405 360 100 Balance -61.326 892.082 770 Weight 60.8 kg 55.8 kg Intake: IV 938 636 678 .9 pressure bag CVP 39 33 9 .9 NS Arterial line 39 33 9 .9 kvo 260 220 60 Azithromycin 500 mg In 250 250 Sodium Chloride 0.9% 250 ml @ 250 mls/hr IVPB DAILY [facility] Rx#:[id number] Meropenem 2 gm In Sodium 100 100 100 Chloride 0.9% 100 ml @ 33 .3 mls/hr IVPB Q12HR [facility] Rx#:[id number] Vancomycin 1,000 mg In 250 250 250 Sodium Chloride 0.9% 250 ml @ 125 mls/hr IVPB Q12HR [facility] Rx#:[id number] Intake, IV Titration 175.674 230.082 Amount propofoL 1,000 mg In 175.674 230.082 Empty Bag 1 bag @ Titrate IV .Q0M [facility] Rx#: [id number] Tube Feeding 80 296 112 Other 150 90 80 Output: Urine 1405 360 100 Other: Voiding Method Indwelling Catheter Indwelling Catheter Indwelling Catheter ABP, PAP, CO, CI - Last Documented Arterial Blood Pressure 132/72 - Exam General: The patient is sedated and intubated Eye: there is normal conjunctiva bilaterally. Neck: The neck is supple, there is no JVD. Cardiovascular: Normal S1-S2, no S3-S4, no murmurs. Respiratory: Lungs with mechanical ventilator sounds Gastrointestinal: Abdomen is soft, nontender Musculoskeletal: There is no pedal edema. Skin: Skin is warm and dry - Labs CBC & Chem 7: 04/22/20 04:22 04/22/20 04:22 Labs: Abnormal Lab Results - Last 24 Hours (Table) 04/21/20 04/21/20 04/22/20 Range/Units 12:08 19:06 04:22 RBC (3.80-5.40) m/uL Hgb (11.4-16.0) gm/dL Neutrophils # (1.3-7.7) k/uL ABG pH (7.35-7.45) ABG pCO2 (35-45) mmHg ABG pO2 (83-108) mmHg ABG Total CO2 (19-24) mmol/L ABG O2 Saturation (94-97) % Potassium 3.4 L (3.5-5.1) mmol/L Chloride 115 H (98-107) mmol/L Creatinine 0.50 L (0.52-1.04) mg/dL Glucose 103 H (74-99) mg/dL POC Glucose (mg/dL) 73 L 114 H (75-99) mg/dL Calcium 6.7 L (8.4-10.2) mg/dL Phosphorus 2.3 L (2.5-4.5) mg/dL Troponin I (0.000-0.034) ng/mL Total Protein 5.5 L (6.3-8.2) g/dL Albumin 2.6 L (3.5-5.0) g/dL 04/22/20 04/22/20 04/22/20 Range/Units 04:22 04:22 08:29 RBC 3.57 L (3.80-5.40) m/uL Hgb 11.3 L (11.4-16.0) gm/dL Neutrophils # 7.8 H (1.3-7.7) k/uL ABG pH 7.49 H (7.35-7.45) ABG pCO2 33 L (35-45) mmHg ABG pO2 156 H (83-108) mmHg ABG Total CO2 26 H (19-24) mmol/L ABG O2 Saturation 99.8 H (94-97) % Potassium (3.5-5.1) mmol/L Chloride (98-107) mmol/L Creatinine (0.52-1.04) mg/dL Glucose (74-99) mg/dL POC Glucose (mg/dL) (75-99) mg/dL Calcium (8.4-10.2) mg/dL Phosphorus (2.5-4.5) mg/dL Troponin I 0.864 H* (0.000-0.034) ng/mL Total Protein (6.3-8.2) g/dL Albumin (3.5-5.0) g/dL Microbiology - Last 24 Hours (Table) 04/20/20 11:18 Gram Stain - Preliminary Sputum Sputum Culture - Preliminary Presumptive Staph aureus 04/18/20 01:58 Blood Culture - Preliminary Blood No Growth after 96 hours Assessment and Plan Assessment: Patient is a 74-year-old female with hypertension, fibromyalgia, and coronary artery disease with prior stenting who was brought to the emergency department secondary to altered mentation. The patient had recently been experiencing diarrhea for 4 weeks. She underwent a colonoscopy approximately one week prior to admission and since that time had been having a productive cough with yellow sputum. In the ER she underwent an extensive evaluation. was concerned that she may be having a seizure she was shaking all of her limbs for more than 5 minutes and he called 911. On arrival to the ER she was significantly bradycardic with a pulse of 36 blood pressure 112/75 and pulse ox 88% on room air. Chest x-ray revealed opacities in bilateral lung bases right greater than left without significant pleural effusion. She was started on dopamine for bradycardia, given a cocktail for her hyperkalemic, IV fluids, and Zithromax for pneumonia. She was admitted to the ICU. She ultimately required levo secondary to hypotension. Her potassium improved after treatment and her heart rate noramlaized and she was able to come off dopamine. Her lactic acid resolved. There was some concern for COVID 19 by PCR was negative. Patient was started on dexamethasone. Levophed was weaned on 04/18. Her O2 requirements continued to increase. Overnight on 04/19 patient had significant worsening of her respiratory status. She ultimately required intubation on the morning of 04/20. Her d-dimer was noted to be increased at 6.78 which was felt to likely be reflective of her acute pulmonary process Acute bilateral pneumonia right greater than left, ARDS -Covid test on presentation negative but highly clinical suspicion surgery repeat test was ordered and pending -Continue with Zithromax, Vancomycin, and Merrem due to allergies -Dexamathasone -Follow chest x-ray -Procalcitonin < 2 -D-dimer greater than 6 initially but repeat was a lot lower. Very low clinical suspicion for PE. Anticoagulation dose of Lovenox was discontinued by ICU team. -Sputum culture showed staph. Blood culture negative to date. Acute hypoxic respiratory failure -Status post intubation and mechanical ventilation on 04/20. Managed by ICU Toxic metabolic encephalopathy, on presentation Coronary artery disease with prior stenting of the LAD -Plavix -Lopressor on hold secondary to bradycardia -Continue with Lipitor Bradycardia/idioventricular rhythm, resolved -Cardiology recs appreciated -Echocardiogram with ejection fraction 60-65% -Likely secondary to hyperkalemia -Hold Lopressor and Cardizem for now Acute kidney injury with hyperkalemia, improved Lactic acidosis, resolved Chronic: Hypertension, fibromyalgia, peripheral neuropathy, hypothyroidism Today, I reviewed her medication list and lab work results. Continue ICU care. Continue tube feeding. Dietitian recommendations. Appreciate pulmonology recommendations. Spontaneous breathing trial as directed by ICU. Repeat ABG showing improvement in oxygenation. May decrease the vent settings per IC recommendations. Repeat lab work in the morning. Patient remained in critical condition. No family members at bedside to be updated.
--- NOTE | 2020-04-22 11:57 | CDI ---
Documentation Clarification Form Date: 04/22/2020 11:31:44 AM From: Frieda Field CCS, CCDS Admit Date: 04/18/2020 01:38:00 AM Patient Name: Evi Trotter Visit Number: [id number] Discharge Date: ATTENTION: The Clinical Documentation Specialists (CDI) and [facility] Coding Staff appreciate your assistance in clarifying documentation. Please respond to the clarification below the line at the bottom and electronically sign. The CDI & [facility] Coding staff will review the response and follow-up if needed. Please note: Queries are made part of the Legal Health Record. If you have any questions, please contact the author of this message via ITS. Dr. Nima [place]: Patient presented to the ED on 04/18 with generalized weakness, altered mental status, confusion, fever, chills & loss of appetite. Admitted with Community Acquired Bacterial Pneumonia. Per the 04/18 History & Physical: Acute metabolic encephalopathy, Acute bilateral community acquired pneumonia, Lactic acidosis, CHARMAINE & Hyperkalemia. Per the 04/18 Pulmonary/Critical Care Consult: Acute bilateral pneumonia, Sepsis secondary to hypotension due to pneumonia. Per the 04/20 Pulmonary/Critical Care PN: the patient became progressively more hypoxic through the night, moved to 100% nrb. PO 90-91%, patient was intubated, placed on vent. Patient history/risk factors: CAD, Fibromyalgia, Hypertension. Clinical Indicators: Presented to the ED on 04/18, admit with pneumonia, initial COVID test negative, repeated & pending, CHARMAINE, Acidosis, Acute Hypoxic Respiratory Failure. Bradycardic in ED with P 36, Pulse Ox 88% RA, started on Dopamine, IV fluids, Zithromax, Levophed for Hypotension and admitted to ICU with concern for COVID 19. Vitals 04/18: T 97.6, P 36 - 40*, R 14-16, BP 112/75 - 139/64; PO 88 RA - 95 2L Vitals 04/20: T 98.2, P 72 - 54*, R 20 - 24 (sob, shallow, tachypnea) - 32; BP 169/74 - 186/76; PO 82 high flow - vent. LAB 04/18: WBC (8.6), BUN 23^, Cr 1.84^, Lactic Acid 2.2^^, Calcium 7.8*, Phos 5.7^. LAB 04/20: WBC 12.1^, Neut 10.6^, D Dimer 6.78^, K 3.2*, Johnathan 7.6*, Phos 1.4*, Lactate Dehydrogenase 1128^, Troponin 0.547^^, [place] 18.8^, [place] [address]. ABG Blood gas 04/20: pH 7.55^, pCO2 33*, pO2 359^, HCO3 29^, Total CO2 30^ Treatment 04/18: IV Atropine, IV fluid bolus 1,000 mls @ 999 mls/hr x2, IV fluid bolus 500 mls @ 999 mls/hr, IV fluid 1,000 mls @ 130 mls/hr x2, IV Dextrose, IV Insulin, IV NaBicarb, IV Calcium Gluconate, INH Albuterol, IV Azithromycin, IV Dopaimine, IV Norepinephrine, IV Vancomycin, IV MagSulfate. In your professional opinion, can you please specify the type of shock if known? Septic Shock o Suspected or known causative organism o Any associated organ failure Hypovolemic Shock o Cause o Other, please specify Unable to determine (Last Revision: March 2017) MTDD
[2020-04-22 13:41] LABS: Glucose,Whole Blood 116 mg/dL (75-99)
[2020-04-22 14:14] LABS: Hemoglobin A1C 5.4 % (4.0-6.0)
--- NOTE | 2020-04-22 16:33 | P.PN ---
Subjective Progress Note Date: 04/22/20 Principal diagnosis: Acute hypoxic respiratory failure and bilateral pneumonia, exact etiology of the pneumonia is not clear at this point yet. On today's evaluation of 04/19/2020, the patient is feeling better. The patient is currently off pressors and the patient is currently off dopamine and norepinephrine infusion. Cardiac rhythm is sinus. No cardiac arrhythmias of been noted. The echocardiogram came back within normal limits. The ejection fraction is order of 6065%. There is mild to moderate mitral regurgitation. Moderate pulmonary hypertension. Meanwhile, the patient's white cell count is at 6.8. Hemoglobin is at 9.5. Renal function has normalized and the creatinine is down to 0.85. The patient had a follow-up chest x-ray that shows cardiomegaly and small tiny bilateral pleural effusions. There is also worsening of the right lung multifocal infiltration. The patient was noted on examination Zithromax and vancomycin. The patient is currently on 8 L of oxygen by nasal cannula. Note that her oxidation is improved somewhat. Earlier the patient was on 15 L and this was gradually weaned down to 10 L and currently she is on 8 L. she is doing well. She has no specific complaints pH is tolerating her diet. Dressing in bed comfortably. The pro-calcitonin level from yesterday was 0.31. On 04/20/2020, the patient is having significant decompensation in her clinical condition and respiratory status. Noted the patient progressively became more hypoxic throughout the night and the patient was ultimately moved to 100% nonrebreather facemask earlier this morning. Timolol arrival, the patient was struggling to breathe and she was using accessory muscles of breathing. At that point, I reviewed the chest x-ray and there was significant worsening in the pulmonary infiltrates more so on the right. There is diffuse increased lung markings present on the right and there is also infiltration also on the left. The patient was still hemodynamically stable. She was awake. Pulse ox was in the order of 90-91%. At that point, I decided to intubate the patient placed on a mechanical ventilation. Note that the joyner virus: 19 testing is still pending. The patient appropriate calcitonin level was not elevated at 0.31. I had covered with broad-spectrum antibiotics and she was receiving a combination of IV Merrem, IV vancomycin and IV Zithromax. She has multiple ALLERGIES and shortness of antibiotics was quite limited because of her ALLERGIES. Postextubation, the patient remained hemodynamically stable. She did not require any hypotension. I put her on a pressure control mode of ventilation initially the pressure control of 22 with a rate of 28 and a PEEP of 15 with an FiO2 of 100%. Subsequent blood gases showed a pH of 7.55 with a pCO2 of 33 and pO2 of 359. I changed a pressure control to a rate of 24, The PEEP down to 12, drop the FiO2 down to 50% and subsequent blood gases showed adequate oxygenation. Post intubation, the chest x-ray showed adequate positioning of 82. The patient was also given an arterial line. No pressors was utilized. Legionella urine antigen was sent.: The joyenr virus Covid 19 testing is still pending for now. The most recent blood gases showed a pH of 7.54 with a pCO2 of 33 and pO2 of 103 and this was on the above-mentioned ventilator setting. The patient currently is sedated with propofol running at 70 g per KG per minute. IV fluids are at KVO. She has a CVP of 22. He was given a dose of Lasix. Note that echo cardiac exam showed a preserved LV function. She had already mild degree of pulmonary hypertension with a PA pressures being in the mid 30s. Note that her proBNP level from today was 19,000, CRP was 18.8, LDH was 1128, troponin was at 0.547, the white cell count is at 12.1. Patient was reevaluated today on 04/21/20, remains in the ICU, intubated and mech anically ventilated. She is presently on a pressure control mode of mechanical ventilation, however after reviewing her gases and ventilator settings I recommended switching the patient to a volume control, and she is now on assist control rate of 16 tidal volume is 375, FiO2 is 40%. PEEP is at 8. ABG this morning showed a pO2 of 204 pCO2 of 23 pH of 7.62. Patient remains on propofol at 60 mcg/kg/m, she is on IV fluid at KVO. And she is to be given a sedation interruption today, and assess mental status at least. Lasix was given at 40 mg IV push times one. Patient remains on multiple antibiotics including vancomycin, meropenem, and Zithromax, however these will be adjusted as soon as we have some cultures back. And we are still waiting for the covid 19 PCR which is pending. LDH is 1022 C-reactive protein is 121. Chest x-ray shows diffuse pneumonia Patient was reevaluated today on 05/19/20, patient remains in the ICU, intubated and mechanically ventilated. She is on assist control rate of 16 tidal volume of 375 FiO2 of 40% and PEEP is at 8. I did cut down the PEEP to 5. Patient came back negative for Covid 19. And her sputum is suggestive of possible staph aureus. Chest x-ray is showing slight improvement but there is also a strong suspicion that she may have underlying pulmonary edema and recommended aggressive diuresis and repeat chest x-ray in the next 24 hours. Patient ABG showed pO2 of 156 pCO2 of 33 pH of 7.49, hence she is now at 55% FiO2 rate is at 14 and PEEP is down to 5. Patient remains on antibiotics in the form of Merrem and vancomycin, and I plan to discontinue one of them once more cultures are available. I have discontinued Zithromax. I have also discontinued Decadron, and I cut down Lovenox to 40 mg subcu daily. Patient remains on propofol at 55 mcg/kg/m. Her BNP today is significantly elevated over 54,000, hence I will push more diuretics and have a follow-up chest x-ray as the patient may be having some component of diastolic congestive heart failure. Echocardiogram showed good LV function. Objective - Vital Signs Vital signs: Vital Signs Temp 97.6 F 04/22/20 16:00 Pulse 68 04/22/20 16:00 Resp 16 04/22/20 16:00 BP 122/73 04/22/20 16:00 Pulse Ox 97 04/22/20 16:00 Intake & Output 04/21/20 04/22/20 04/22/20 18:59 06:59 18:59 Intake Total 5498.905 4051.082 1620.595 Output Total 8522 575 4549 Balance -61.326 892.082 -454.405 Weight 60.8 kg 55.8 kg Intake: IV 938 636 860 .9 pressure bag CVP 39 33 30 .9 NS Arterial line 39 33 30 .9 kvo 260 220 200 Azithromycin 500 mg In 250 250 Sodium Chloride 0.9% 250 ml @ 250 mls/hr IVPB DAILY [facility] Rx#:[id number] Meropenem 2 gm In Sodium 100 100 100 Chloride 0.9% 100 ml @ 33 .3 mls/hr IVPB Q12HR [facility] Rx#:[id number] Vancomycin 1,000 mg In 250 250 250 Sodium Chloride 0.9% 250 ml @ 125 mls/hr IVPB Q12HR [facility] Rx#:[id number] Intake, IV Titration 175.674 230.082 186.595 Amount propofoL 1,000 mg In 175.674 230.082 186.595 Empty Bag 1 bag @ Titrate IV .Q0M [facility] Rx#: [id number] Tube Feeding 80 296 364 Other 150 90 210 Output: Urine 5683 309 6269 Other: Voiding Method Indwelling Catheter Indwelling Catheter Indwelling Catheter ABP, PAP, CO, CI - Last Documented Arterial Blood Pressure 124/52 - Exam Physical Exam: Revealed 74-year-old female intubated, mechanically ventilated, sedated, on propofol. Head: Atraumatic, normocephalic. Endotracheal tube and orogastric tubes are i ntact. Patient has a size 8 endotracheal tube. HEENT:[Neck is supple.] [No neck masses.] [No thyromegaly.] [No JVD.] PERRLA, EOMI, no icterus. Right IJ triple-lumen catheter is noted. Chest: [Electrical chest expansion, crackles at the bases bilaterally. Cardiac Exam: [Normal S1 and S2, no S3 gallop, no murmur.] Abdomen: [Soft, nontender, no megaly, no rebound, no guarding, normal bowel sounds.] Extremities: [No clubbing, no edema, no cyanosis.] Good pulses bilaterally. Neurological Exam: Patient is sedated, could not be assessed. She is on propofol however sedation interruption will be done later today, and mental status will be assessed. Psychiatric: Could not be assessed. Skin: No rashes. Lymphatics: No cervical or supraclavicular lymphadenopathy. - Labs CBC & Chem 7: 04/22/20 04:22 04/22/20 04:22 Labs: Abnormal Lab Results - Last 24 Hours (Table) 04/21/20 04/22/20 04/22/20 Range/Units 19:06 04:22 04:22 RBC 3.57 L (3.80-5.40) m/uL Hgb 11.3 L (11.4-16.0) gm/dL Neutrophils # 7.8 H (1.3-7.7) k/uL ABG pH (7.35-7.45) ABG pCO2 (35-45) mmHg ABG pO2 (83-108) mmHg ABG Total CO2 (19-24) mmol/L ABG O2 Saturation (94-97) % Potassium 3.4 L (3.5-5.1) mmol/L Chloride 115 H (98-107) mmol/L Creatinine 0.50 L (0.52-1.04) mg/dL Glucose 103 H (74-99) mg/dL POC Glucose (mg/dL) 114 H (75-99) mg/dL Calcium 6.7 L (8.4-10.2) mg/dL Phosphorus 2.3 L (2.5-4.5) mg/dL Troponin I (0.000-0.034) ng/mL Total Protein 5.5 L (6.3-8.2) g/dL Albumin 2.6 L (3.5-5.0) g/dL 04/22/20 04/22/20 04/22/20 Range/Units 04:22 08:29 13:38 RBC (3.80-5.40) m/uL Hgb (11.4-16.0) gm/dL Neutrophils # (1.3-7.7) k/uL ABG pH 7.49 H (7.35-7.45) ABG pCO2 33 L (35-45) mmHg ABG pO2 156 H (83-108) mmHg ABG Total CO2 26 H (19-24) mmol/L ABG O2 Saturation 99.8 H (94-97) % Potassium (3.5-5.1) mmol/L Chloride (98-107) mmol/L Creatinine (0.52-1.04) mg/dL Glucose (74-99) mg/dL POC Glucose (mg/dL) 116 H (75-99) mg/dL Calcium (8.4-10.2) mg/dL Phosphorus (2.5-4.5) mg/dL Troponin I 0.864 H* (0.000-0.034) ng/mL Total Protein (6.3-8.2) g/dL Albumin (3.5-5.0) g/dL Microbiology - Last 24 Hours (Table) 04/20/20 11:18 Gram Stain - Preliminary Sputum Sputum Culture - Preliminary Presumptive Staph aureus 04/18/20 01:58 Blood Culture - Preliminary Blood No Growth after 96 hours Assessment and Plan Assessment: Impression: Acute hypoxic respiratory failure secondary to bilateral pneumonia, negative PCR for, 19. Possible staph aureus pneumonia based on the sputum studies. Suspect acute diastolic congestive heart failure. Sepsis with hypotension secondary to underlying pneumonia. Acute kidney injury with hyperkalemia. Atrial fibrillation with controlled rate. Bradycardia on presentation requiring treatment of her hyperkalemia and use of dopamine and norepinephrine temporarily. History of hypertension. And previous stenting of LAD. History of underlying coronary artery disease. History of fibromyalgia. History of peripheral neuropathy. Recommendation: Continue ventilatory support. Increase Lasix dose today to 40 mg IV push every 12 hours. Continue hemodynamic support as needed. Discontinue Zithromax and continue vancomycin and Merrem for now.. Continue enteral feeding. Continue GI and DVT prophylaxis. Lovenox dose has been cut down to 40 mg subcu daily Continue to monitor cardiac rhythm. Negative PCR for covid 19 was noted today. Patient is critically ill, and will continue to follow closely in the ICU. Prognosis is definitely guarded. Critical care time is 33 minutes Time with Patient: Greater than 30
[2020-04-22 17:34] LABS: Glucose,Whole Blood 103 mg/dL (75-99)
[2020-04-22] MEDS ORDERED: POTASSIUM BICARBONATE/CIT AC 20 MEQ TABLET.EFF NG-TUBE SCH (18:00)
[2020-04-22] MEDS: DONEPEZIL 10 MG TAB PO SCH (20:15)
[2020-04-23 00:14] LABS: Glucose,Whole Blood 86 mg/dL (75-99)
[2020-04-23 04:33] LABS: Basophils % (A) 1 %; Eosinophils # (A) 0.1 k/uL (0-0.7); Eosinophils % (A) 2 %; HCT 37.6 % (34.0-46.0); Hypochromasia Slight; Lymphocytes # (A) 1.7 k/uL (1.0-4.8); Lymphocytes % (A) 21 %; MCH 31.7 pg (25.0-35.0); MCHC 31.9 g/dL (31.0-37.0); MCV 99.2 fL (80.0-100.0); Macrocytosis Slight; Mean Platelet Volume 8.8; Monocytes # (A) 0.4 k/uL (0-1.0); Monocytes % (A) 5 %; Neutrophils # (A) 5.7 k/uL (1.3-7.7); Neutrophils % (A) 71 %; Platelet Count 191 k/uL (150-450); RBC 3.79 m/uL (3.80-5.40); RDW 15.6 % (11.5-15.5)
[2020-04-23 04:37] LABS: African American GFR (CKD) >90 (>60 ml/min/1.73 sqM); Anion Gap 1 mmol/L; Blood Urea Nitrogen 16 mg/dL (7-17); C Reactive Protein 25.3 mg/L (<10.0); Carbon Dioxide 27 mmol/L (22-30); Chloride 115 mmol/L (98-107); Creatine Kinase 283 U/L (30-135); Glucose 107 mg/dL (74-99); LDH 922 U/L (313-618); Magnesium 1.8 mg/dL (1.6-2.3); Non-African American GFR(CKD) >90 (>60 ml/min/1.73 sqM); Phosphorus 2.5 mg/dL (2.5-4.5); Potassium 3.3 mmol/L (3.5-5.1); Sodium 143 mmol/L (137-145)
[2020-04-23 04:37] LABS: D-Dimer 1.41 mg/L FEU (<0.60); INR 0.9 (<1.2); Partial Thromboplastin Time 23.7 sec (22.0-30.0); Prothrombin Time 9.7 sec (9.0-12.0)
[2020-04-23] MEDS ORDERED: Potassium Replacement Protocol 1 EACH MISC MISCELLANE PRN (05:00)
[2020-04-23] MEDS ORDERED: Magnesium Replacement Protocol 1 EACH MISC MISCELLANE PRN (05:00)
[2020-04-23] MEDS: MAGNESIUM SULFATE-D5W PMX 1 GM in DEXTROSE/WATER 1 100ML.BAG IVPB SCH ×2 (05:28→06:43)
[2020-04-23] MEDS: POTASSIUM BICARBONATE/CIT AC 20 MEQ TABLET.EFF NG-TUBE SCH ×2 (05:28→06:43)
[2020-04-23 05:59] LABS: Glucose,Whole Blood 79 mg/dL (75-99)
[2020-04-23] MEDS: LEVOTHYROXINE 112 MCG TAB PO SCH (06:43)
[2020-04-23 07:26] LABS: ABG HCO3 26 mmol/L (21-25); ABG Oxygen Saturation 99.9 % (94-97); ABG PCO2 34 mmHg (35-45); ABG PO2 144 mmHg (83-108); ABG TCO2 27 mmol/L (19-24)
[2020-04-23 07:28] LABS: Allen Test Performed? no
[2020-04-23] MEDS ORDERED: VANCOMYCIN TROUGH DUE 1 EACH MISC MISCELLANE ONE (08:00)
[2020-04-23] MEDS: CHLORHEXIDINE GLUCONATE 15 ML CUP MUCOUS MEM SCH (08:01)
[2020-04-23] MEDS: PANTOPRAZOLE 40 MG/10 ML VIAL IVP SCH ×2 (08:01→20:42)
[2020-04-23] MEDS: ATORVASTATIN 20 MG TAB PO SCH (08:01)
[2020-04-23] MEDS: GABAPENTIN 400 MG CAP PO SCH ×5 (08:01→22:02)
[2020-04-23] MEDS: MEROPENEM 2 GM in SODIUM CHLORIDE 0.9% 100 ML IVPB SCH (08:01)
[2020-04-23] MEDS: CLOPIDOGREL 75 MG TAB PO SCH (08:01)
[2020-04-23] MEDS: ENOXAPARIN 40 MG/0.4 ML SYRINGE SQ SCH (08:01)
[2020-04-23] MEDS: LORATADINE 10 MG TAB PO SCH (08:01)
[2020-04-23] MEDS: FUROSEMIDE 10 MG/ML 4 ML VIAL IV SCH ×2 (08:01→20:42)
[2020-04-23] MEDS: NOREPINEPHRINE 32 MG in SODIUM CHLORIDE 0.9% 218 ML IV SCH (08:02)
[2020-04-23] MEDS: VANCOMYCIN 1,000 MG in SODIUM CHLORIDE 0.9% 250 ML IVPB SCH (09:15)
[2020-04-23 10:13] LABS: Ferritin 61.5 ng/mL (10.0-291.0)
--- NOTE | 2020-04-23 10:17 | P.PN ---
Subjective Progress Note Date: 04/23/20 Patient is sedated and intubated. No acute events overnight reported to me by nursing staff. Plan for spontaneous breathing trial this morning. Possibly extubation later on. Awaiting ICU team evaluation. Objective - Vital Signs Vital signs: Vital Signs Temp 98 F 04/23/20 08:00 Pulse 84 04/23/20 10:00 Resp 18 04/23/20 10:00 BP 124/74 04/23/20 10:00 Pulse Ox 99 04/23/20 10:00 Intake & Output 04/22/20 04/23/20 04/23/20 18:59 06:59 18:59 Intake Total 2508.441 6116 667.569 Output Total 2175 1550 815 Balance -406.405 -362 -147.431 Weight 54.3 kg Intake: IV 912 662 454 .9 pressure bag CVP 36 36 12 .9 NS Arterial line 36 36 12 .9 kvo 240 240 80 Azithromycin 500 mg In 250 Sodium Chloride 0.9% 250 ml @ 250 mls/hr IVPB DAILY [facility] Rx#:[id number] Meropenem 2 gm In Sodium 100 100 100 Chloride 0.9% 100 ml @ 33 .3 mls/hr IVPB Q12HR [facility] Rx#:[id number] Vancomycin 1,000 mg In 250 250 250 Sodium Chloride 0.9% 250 ml @ 125 mls/hr IVPB Q12HR [facility] Rx#:[id number] Intake, IV Titration 186.595 100 21.569 Amount propofoL 1,000 mg In 186.595 100 21.569 Empty Bag 1 bag @ Titrate IV .Q0M MARIO Rx#: [id number] Tube Feeding 420 336 112 Other 250 90 80 Output: Urine 2175 1550 815 Other: Voiding Method Indwelling Catheter Indwelling Catheter Indwelling Catheter ABP, PAP, CO, CI - Last Documented Arterial Blood Pressure 146/69 - Exam General: The patient is sedated and intubated Eye: there is normal conjunctiva bilaterally. Neck: The neck is supple, there is no JVD. Cardiovascular: Normal S1-S2, no S3-S4, no murmurs. Respiratory: Lungs with mechanical ventilator sounds Gastrointestinal: Abdomen is soft, nontender Musculoskeletal: There is no pedal edema. Skin: Skin is warm and dry - Labs CBC & Chem 7: 04/23/20 04:30 04/23/20 04:00 Labs: Abnormal Lab Results - Last 24 Hours (Table) 04/22/20 04/22/20 04/23/20 Range/Units 13:38 17:33 04:00 RBC (3.80-5.40) m/uL RDW (11.5-15.5) % Fibrinogen (200-500) mg/dL D-Dimer (<0.60) mg/L FEU ABG pH (7.35-7.45) ABG pCO2 (35-45) mmHg ABG pO2 (83-108) mmHg ABG HCO3 (21-25) mmol/L ABG Total CO2 (19-24) mmol/L ABG O2 Saturation (94-97) % Potassium 3.3 L (3.5-5.1) mmol/L Chloride 115 H (98-107) mmol/L Creatinine 0.51 L (0.52-1.04) mg/dL Glucose 107 H (74-99) mg/dL POC Glucose (mg/dL) 116 H 103 H (75-99) mg/dL Calcium 7.0 L (8.4-10.2) mg/dL Lactate Dehydrogenase 922 H (313-618) U/L Creatine Kinase 283 H (30-135) U/L C-Reactive Protein 25.3 H (<10.0) mg/L 04/23/20 04/23/20 04/23/20 Range/Units 04:30 04:30 07:25 RBC 3.79 L (3.80-5.40) m/uL RDW 15.6 H (11.5-15.5) % Fibrinogen 522 H (200-500) mg/dL D-Dimer 1.41 H (<0.60) mg/L FEU ABG pH 7.50 H (7.35-7.45) ABG pCO2 34 L (35-45) mmHg ABG pO2 144 H (83-108) mmHg ABG HCO3 26 H (21-25) mmol/L ABG Total CO2 27 H (19-24) mmol/L ABG O2 Saturation 99.9 H (94-97) % Potassium (3.5-5.1) mmol/L Chloride (98-107) mmol/L Creatinine (0.52-1.04) mg/dL Glucose (74-99) mg/dL POC Glucose (mg/dL) (75-99) mg/dL Calcium (8.4-10.2) mg/dL Lactate Dehydrogenase (313-618) U/L Creatine Kinase (30-135) U/L C-Reactive Protein (<10.0) mg/L Microbiology - Last 24 Hours (Table) 04/20/20 11:18 Gram Stain - Final Sputum Sputum Culture - Final Methicillin resist S. aureus 04/18/20 01:58 Blood Culture - Preliminary Blood No Growth after 120 hours Assessment and Plan Assessment: Patient is a 74-year-old female with hypertension, fibromyalgia, and coronary artery disease with prior stenting who was brought to the emergency department secondary to altered mentation. The patient had recently been experiencing diarrhea for 4 weeks. She underwent a colonoscopy approximately one week prior to admission and since that time had been having a productive cough with yellow sputum. In the ER she underwent an extensive evaluation. Milan garcia was concerned that she may be having a seizure she was shaking all of her limbs for more than 5 minutes and he called 911. On arrival to the ER she was significantly bradycardic with a pulse of 36 blood pressure 112/75 and pulse ox 88% on room air. Chest x-ray revealed opacities in bilateral lung bases right greater than left without significant pleural effusion. She was started on dopamine for bradycardia, given a cocktail for her hyperkalemic, IV fluids, and Zithromax for pneumonia. She was admitted to the ICU. She ultimately required levo secondary to hypotension. Her potassium improved after treatment and her heart rate noramlaized and she was able to come off dopamine. Her lactic acid resolved. There was some concern for COVID 19 by PCR was negative. Patient was started on dexamethasone. Levophed was weaned on 04/18. Her O2 requirements continued to increase. Overnight on 04/19 patient had significant worsening of her respiratory status. She ultimately required i ntubation on the morning of 04/20. Her d-dimer was noted to be increased at 6.78 which was felt to likely be reflective of her acute pulmonary process Acute bilateral pneumonia right greater than left, ARDS -Covid test on presentation negative but highly clinical suspicion surgery repeat test was ordered and pending -Started on Zithromax, Vancomycin, and Merrem due to allergies. Sputum culture grew MRSA. We will continue with IV vancomycin. Discontinue meropenem on 04/23 -Dexamathasone discontinued by ICU team -Follow chest x-ray -Procalcitonin < 2 -D-dimer greater than 6 initially but repeat was a lot lower. Very low clinical suspicion for PE. -Blood culture negative to date. Acute hypoxic respiratory failure -Status post intubation and mechanical ventilation on 04/20. Managed by ICU Sepsis with septic shock -Required vasopressors for a short time on presentation. Currently blood pressure within acceptable range. Toxic metabolic encephalopathy, on presentation Coronary artery disease with prior stenting of the LAD -Plavix -Lopressor on hold secondary to bradycardia -Continue with Lipitor Bradycardia/idioventricular rhythm, resolved -Cardiology recs appreciated -Echocardiogram with ejection fraction 60-65% -Likely secondary to hyperkalemia -Hold Lopressor and Cardizem for now Acute kidney injury with hyperkalemia, improved Lactic acidosis, resolved Chronic: Hypertension, fibromyalgia, peripheral neuropathy, hypothyroidism Today, I reviewed her medication list and lab work results. Continue ICU care. Continue tube feeding. Dietitian recommendations. Appreciate pulmonology recommendations. Spontaneous breathing trial as directed by ICU. Repeat lab w ork in the morning. Patient remained in critical condition. No family members at bedside to be updated.
--- NOTE | 2020-04-23 10:17 | CDI ---
Documentation Clarification Form Date: 04/23/2020 10:00:51 AM From: Frieda FieldCHEPE lock, CCDS Admit Date: 04/18/2020 01:38:00 AM Patient Name: Evi Trotter Visit Number: [id number] Discharge Date: ATTENTION: The Clinical Documentation Specialists (CDI) and [facility] Coding Staff appreciate your assistance in clarifying documentation. Please respond to the clarification below the line at the bottom and electronically sign. The CDI & [facility] Coding staff will review the response and follow-up if needed. Please note: Queries are made part of the Legal Health Record. If you have any questions, please contact the author of this message via ITS. Dr. Jose Luo: Atrial Fibrillation is documented in the 04/18 Pulmonary consult and subsequent pulmonary progress notes. Cardiology was consulted regarding Bradycardia, Atrial Fibrillation is not documented. History/Risk Factors: CAD with Stent to LAD, Hypertension, Peripheral Neuropathy, Fibromyalgia. Clinical Indicators: Presented to the ED on 04/18 with Altered Mental Status, generalized weakness, lack of energy, Confusion, Fever, Chills, Loss of Appetite, Nausea & Vomiting. 04/18 HR: P 36 - 40 - 43 - 54 - 59* (Irregular, weak) EKG 04/19: R 37 Idioventricular rhythm, Rightward axis, LBBB Treatment: IV Atropine, IV Zofran, IV fluid bolus 1,000 mls @ 999 mls/hr x2, IV fluid 1,000 mls @ 130 mls/hr, IV Dextrose/Water, IV Insulin, IV NaBicarb, IV Calcium Gluconate, INH Albuterol, IV Azithromycin, IV Dopamine. In your professional opinion, can you please clarify the type of Atrial Fibrillation, if known? Chronic/Permanent Paroxysmal Persistent Other, please specify Unable to determine (Last Revision: September 2017) MTDD
--- NOTE | 2020-04-23 10:48 | XR ---
EXAMINATION TYPE: XR chest 1V portable DATE OF EXAM: 04/23/2020 COMPARISON: Prior chest x-ray 04/22/2020 HISTORY: Intubated TECHNIQUE: Single frontal view of the chest is obtained. FINDINGS: Endotracheal tube, NG tube, right jugular central venous catheter are overlying appropriat e positions. Surgical clips are present right upper quadrant. There is no evident pneumothorax. Cardi ac mediastinal silhouette, pulmonary vascularity and aspen are stable accounting for differences in te chnique. There is improved visualization of the hemidiaphragms, improved aeration within the lungs. T here are overlying artifacts. IMPRESSION: There is improvement in patient's findings status, aeration within the lungs.
[2020-04-23 11:30] LABS: ABG Base Excess 4.4 mmol/L; ABG HCO3 27 mmol/L (21-25); ABG PCO2 34 mmHg (35-45); ABG PH 7.51 (7.35-7.45); ABG PO2 105 mmHg (83-108); ABG TCO2 28 mmol/L (19-24)
[2020-04-23 11:35] LABS: Allen Test Performed? no
[2020-04-23 11:49] LABS: Glucose,Whole Blood 95 mg/dL (75-99)
--- NOTE | 2020-04-23 14:41 | P.PN ---
Subjective Progress Note Date: 04/23/20 Principal diagnosis: Acute hypoxic respiratory failure and bilateral pneumonia, exact etiology of the pneumonia is not clear at this point yet. On today's evaluation of 04/19/2020, the patient is feeling better. The patient is currently off pressors and the patient is currently off dopamine and norepinephrine infusion. Cardiac rhythm is sinus. No cardiac arrhythmias of been noted. The echocardiogram came back within normal limits. The ejection fraction is order of 6065%. There is mild to moderate mitral regurgitation. Moderate pulmonary hypertension. Meanwhile, the patient's white cell count is at 6.8. Hemoglobin is at 9.5. Renal function has normalized and the creatinine is down to 0.85. The patient had a follow-up chest x-ray that shows cardiomegaly and small tiny bilateral pleural effusions. There is also worsening of the right lung multifocal infiltration. The patient was noted on examination Zithromax and vancomycin. The patient is currently on 8 L of oxygen by nasal cannula. Note that her oxidation is improved somewhat. Earlier the patient was on 15 L and this was gradually weaned down to 10 L and currently she is on 8 L. she is doing well. She has no specific complaints pH is tolerating her diet. Dressing in bed comfortably. The pro-calcitonin level from yesterday was 0.31. On 04/20/2020, the patient is having significant decompensation in her clinical condition and respiratory status. Noted the patient progressively became more hypoxic throughout the night and the patient was ultimately moved to 100% nonrebreather facemask earlier this morning. Timolol arrival, the patient was struggling to breathe and she was using accessory muscles of breathing. At that point, I reviewed the chest x-ray and there was significant worsening in the pulmonary infiltrates more so on the right. There is diffuse increased lung markings present on the right and there is also infiltration also on the left. The patient was still hemodynamically stable. She was awake. Pulse ox was in the order of 90-91%. At that point, I decided to intubate the patient placed on a mechanical ventilation. Note that the joyner virus: 19 testing is still pending. The patient appropriate calcitonin level was not elevated at 0.31. I had covered with broad-spectrum antibiotics and she was receiving a combination of IV Merrem, IV vancomycin and IV Zithromax. She has multiple ALLERGIES and shortness of antibiotics was quite limited because of her ALLERGIES. Postextubation, the patient remained hemodynamically stable. She did not require any hypotension. I put her on a pressure control mode of ventilation initially the pressure control of 22 with a rate of 28 and a PEEP of 15 with an FiO2 of 100%. Subsequent blood gases showed a pH of 7.55 with a pCO2 of 33 and pO2 of 359. I changed a pressure control to a rate of 24, The PEEP down to 12, drop the FiO2 down to 50% and subsequent blood gases showed adequate oxygenation. Post intubation, the chest x-ray showed adequate positioning of 82. The patient was also given an arterial line. No pressors was utilized. Legionella urine antigen was sent.: The joyner virus Covid 19 testing is still pending for now. The most recent blood gases showed a pH of 7.54 with a pCO2 of 33 and pO2 of 103 and this was on the above-mentioned ventilator setting. The patient currently is sedated with propofol running at 70 g per KG per minute. IV fluids are at KVO. She has a CVP of 22. He was given a dose of Lasix. Note that echo cardiac exam showed a preserved LV function. She had already mild degree of pulmonary hypertension with a PA pressures being in the mid 30s. Note that her proBNP level from today was 19,000, CRP was 18.8, LDH was 1128, troponin was at 0.547, the white cell count is at 12.1. Patient was reevaluated today on 04/21/20, remains in the ICU, intubated and mech anically ventilated. She is presently on a pressure control mode of mechanical ventilation, however after reviewing her gases and ventilator settings I recommended switching the patient to a volume control, and she is now on assist control rate of 16 tidal volume is 375, FiO2 is 40%. PEEP is at 8. ABG this morning showed a pO2 of 204 pCO2 of 23 pH of 7.62. Patient remains on propofol at 60 mcg/kg/m, she is on IV fluid at KVO. And she is to be given a sedation interruption today, and assess mental status at least. Lasix was given at 40 mg IV push times one. Patient remains on multiple antibiotics including vancomycin, meropenem, and Zithromax, however these will be adjusted as soon as we have some cultures back. And we are still waiting for the covid 19 PCR which is pending. LDH is 1022 C-reactive protein is 121. Chest x-ray shows diffuse pneumonia Patient was reevaluated today on 04/22/20, patient remains in the ICU, intubated and mechanically ventilated. She is on assist control rate of 16 tidal volume of 375 FiO2 of 40% and PEEP is at 8. I did cut down the PEEP to 5. Patient came back negative for Covid 19. And her sputum is suggestive of possible staph aureus. Chest x-ray is showing slight improvement but there is also a strong suspicion that she may have underlying pulmonary edema and recommended aggressive diuresis and repeat chest x-ray in the next 24 hours. Patient ABG showed pO2 of 156 pCO2 of 33 pH of 7.49, hence she is now at 55% FiO2 rate is at 14 and PEEP is down to 5. Patient remains on antibiotics in the form of Merrem and vancomycin, and I plan to discontinue one of them once more cultures are available. I have discontinued Zithromax. I have also discontinued Decadron, and I cut down Lovenox to 40 mg subcu daily. Patient remains on propofol at 55 mcg/kg/m. Her BNP today is significantly elevated over 54,000, hence I will push more diuretics and have a follow-up chest x-ray as the patient may be having some component of diastolic congestive heart failure. Echocardiogram showed good LV function. Patient was reevaluated today on 04/23/20, patient remains in the ICU, intubated and mechanically ventilated. She is presently on assist control rate of 14 tidal volume is 350 FiO2 is 35% and PEEP is 5. ABG showed a pO2 of 144 pCO2 of 34 pH of 7.50. Chest x-ray is showing improvement with the Lasix given 40 mg IV push every 12 hours. Patient remains on propofol, and she is on enteral feeding. She is not requiring any hemodynamic support. Patient is now on propofol, hence I plan to discontinue propofol, and we will likely recommend a trial of pressure support of 8 and CPAP if tolerated. Empirically the patient remains on antibiotics, sputum is positive for MRSA, hence Merrem was discontinued, and the patient is now on vancomycin. Again her chest x-ray today is showing improvement, I believe the findings on the chest x-ray as most are mostly findings of fluid overload and possible MRSA pneumonia. Labs today were basically unremarkable. CBC is relatively normal. Basic metabolic profile is normal except for low potassium of 3.3, being corrected as per protocol. Objective - Vital Signs Vital signs: Vital Signs Temp 98.3 F 04/23/20 12:00 Pulse 92 04/23/20 13:00 Resp 16 04/23/20 13:00 BP 134/77 04/23/20 13:00 Pulse Ox 99 04/23/20 13:00 Intake & Output 04/22/20 04/23/20 04/23/20 18:59 06:59 18:59 Intake Total 9720.107 9000 745.569 Output Total 2175 1550 2205 Balance -406.405 -362 -1459.431 Weight 54.3 kg 54.3 kg Intake: IV 912 662 532 .9 pressure bag CVP 36 36 21 .9 NS Arterial line 36 36 21 .9 kvo 240 240 140 Azithromycin 500 mg In 250 Sodium Chloride 0.9% 250 ml @ 250 mls/hr IVPB DAILY [facility] Rx#:[id number] Meropenem 2 gm In Sodium 100 100 100 Chloride 0.9% 100 ml @ 33 .3 mls/hr IVPB Q12HR [facility] Rx#:[id number] Vancomycin 1,000 mg In 250 250 250 Sodium Chloride 0.9% 250 ml @ 125 mls/hr IVPB Q12HR [facility] Rx#:[id number] Intake, IV Titration 186.595 100 21.569 Amount propofoL 1,000 mg In 186.595 100 21.569 Empty Bag 1 bag @ Titrate IV .Q0M [facility] Rx#: [id number] Tube Feeding 420 336 112 Other 250 90 80 Output: Urine 2175 1550 2205 Other: Voiding Method Indwelling Catheter Indwelling Catheter Indwelling Catheter ABP, PAP, CO, CI - Last Documented Arterial Blood Pressure 154/69 - Exam Physical Exam: Revealed 74-year-old female intubated, mechanically ventilated, sedated, on propofol. Head: Atraumatic, normocephalic. Endotracheal tube and orogastric tube and endotracheal tube are intact. HEENT:[Neck is supple.] [No neck masses.] [No thyromegaly.] [No JVD.] PERRLA, EOMI, no icterus. Right IJ triple-lumen catheter is noted. Chest: [Electrical chest expansion, very fine crackles at the bases.. Cardiac Exam: [Normal S1 and S2, no S3 gallop, no murmur.] Abdomen: [Soft, nontender, no megaly, no rebound, no guarding, normal bowel sounds.] Extremities: [No clubbing, no edema, no cyanosis.] Good pulses bilaterally. Neurological Exam: Patient is sedated, off propofol, patient was noted to be lethargic and not following any instructions. Psychiatric: Could not be assessed. Skin: No rashes. Lymphatics: No cervical or supraclavicular lymphadenopathy. - Labs CBC & Chem 7: 04/23/20 04:30 04/23/20 04:00 Labs: Abnormal Lab Results - Last 24 Hours (Table) 04/22/20 04/23/20 04/23/20 Range/Units 17:33 04:00 04:30 RBC (3.80-5.40) m/uL RDW (11.5-15.5) % Fibrinogen 522 H (200-500) mg/dL D-Dimer 1.41 H (<0.60) mg/L FEU ABG pH (7.35-7.45) ABG pCO2 (35-45) mmHg ABG pO2 (83-108) mmHg ABG HCO3 (21-25) mmol/L ABG Total CO2 (19-24) mmol/L ABG O2 Saturation (94-97) % Potassium 3.3 L (3.5-5.1) mmol/L Chloride 115 H (98-107) mmol/L Creatinine 0.51 L (0.52-1.04) mg/dL Glucose 107 H (74-99) mg/dL POC Glucose (mg/dL) 103 H (75-99) mg/dL Calcium 7.0 L (8.4-10.2) mg/dL Lactate Dehydrogenase 922 H (313-618) U/L Creatine Kinase 283 H (30-135) U/L C-Reactive Protein 25.3 H (<10.0) mg/L 04/23/20 04/23/20 04/23/20 Range/Units 04:30 07:25 11:27 RBC 3.79 L (3.80-5.40) m/uL RDW 15.6 H (11.5-15.5) % Fibrinogen (200-500) mg/dL D-Dimer (<0.60) mg/L FEU ABG pH 7.50 H 7.51 H (7.35-7.45) ABG pCO2 34 L 34 L (35-45) mmHg ABG pO2 144 H (83-108) mmHg ABG HCO3 26 H 27 H (21-25) mmol/L ABG Total CO2 27 H 28 H (19-24) mmol/L ABG O2 Saturation 99.9 H 99.0 H (94-97) % Potassium (3.5-5.1) mmol/L Chloride (98-107) mmol/L Creatinine (0.52-1.04) mg/dL Glucose (74-99) mg/dL POC Glucose (mg/dL) (75-99) mg/dL Calcium (8.4-10.2) mg/dL Lactate Dehydrogenase (313-618) U/L Creatine Kinase (30-135) U/L C-Reactive Protein (<10.0) mg/L Microbiology - Last 24 Hours (Table) 04/20/20 11:18 Gram Stain - Final Sputum Sputum Culture - Final Methicillin resist S. aureus 04/18/20 01:58 Blood Culture - Preliminary Blood No Growth after 120 hours Assessment and Plan Assessment: Impression: Acute hypoxic respiratory failure secondary to bilateral pneumonia, negative PCR for, 19. Possible staph aureus pneumonia based on the sputum studies. Suspect acute diastolic congestive heart failure. Sepsis with hypotension secondary to underlying pneumonia. Acute kidney injury with hyperkalemia. Rhythm disturbance as noted below, mostly bradycardia with intraventricular rhythm disturbance, no clear-cut evidence of atrial fibrillation. Bradycardia on presentation requiring treatment of her hyperkalemia and use of dopamine and norepinephrine temporarily. History of hypertension. And previous stenting of LAD. History of underlying coronary artery disease. History of fibromyalgia. History of peripheral neuropathy. Suspect fluid overload upon presentation with hypovolemia. Recommendation: Continue ventilatory support. Continue Lasix. Continue hemodynamic support as needed. Continue vancomycin, patient is off norepinephrine and Zithromax now. Continue enteral feeding. Continue GI and DVT prophylaxis. Lovenox dose has been cut down to 40 mg subcu daily Continue to monitor cardiac rhythm. No evidence of atrial fibrillation, but the patient had rhythm disturbance, addressed by cardiology Negative PCR for covid 19 Will give the patient a trial of weaning possibly today, we'll also try pressure support and CPAP, and if tolerated may extubate or may keep on pressure support and CPAP for a longer time. Critical care time is 32 minutes Time with Patient: Greater than 30
[2020-04-23 17:45] LABS: Glucose,Whole Blood 86 mg/dL (75-99)
[2020-04-23] MEDS: VANCOMYCIN 750 MG in SODIUM CHLORIDE 0.9% 250 ML IVPB SCH (20:41)
[2020-04-23] MEDS: DONEPEZIL 10 MG TAB PO SCH (20:42)
[2020-04-23 23:55] LABS: Glucose,Whole Blood 85 mg/dL (75-99)
[2020-04-24] MEDS: POTASSIUM CHLORIDE 20 MEQ in WATER FOR INJECTION 1 100ML.BAG IVPB SCH ×4 (04:10→18:25)
[2020-04-24 04:37] LABS: Basophils # (A) 0.1 k/uL (0-0.2); Basophils % (A) 1 %; Eosinophils # (A) 0.1 k/uL (0-0.7); Eosinophils % (A) 2 %; HGB 11.1 gm/dL (11.4-16.0); Hypochromasia Slight; Lymphocytes # (A) 1.5 k/uL (1.0-4.8); Lymphocytes % (A) 18 %; MCH 31.6 pg (25.0-35.0); MCHC 31.7 g/dL (31.0-37.0); MCV 99.6 fL (80.0-100.0); Macrocytosis Slight; Mean Platelet Volume 8.4; Monocytes # (A) 0.4 k/uL (0-1.0); Monocytes % (A) 5 %; Neutrophils # (A) 6.2 k/uL (1.3-7.7); Neutrophils % (A) 74 %; Platelet Count 180 k/uL (150-450); RBC 3.51 m/uL (3.80-5.40); RDW 15.4 % (11.5-15.5); WBC 8.4 k/uL (3.8-10.6)
[2020-04-24 04:50] LABS: African American GFR (CKD) >90 (>60 ml/min/1.73 sqM); Anion Gap 2 mmol/L; Blood Urea Nitrogen 10 mg/dL (7-17); Calcium 6.8 mg/dL (8.4-10.2); Carbon Dioxide 28 mmol/L (22-30); Chloride 116 mmol/L (98-107); Glucose 98 mg/dL (74-99); Magnesium 2.2 mg/dL (1.6-2.3); Non-African American GFR(CKD) >90 (>60 ml/min/1.73 sqM); Potassium 3.2 mmol/L (3.5-5.1); Sodium 146 mmol/L (137-145)
[2020-04-24 06:23] LABS: Glucose,Whole Blood 79 mg/dL (75-99)
[2020-04-24] MEDS: LEVOTHYROXINE 112 MCG TAB PO SCH (06:38)
[2020-04-24] MEDS: ENOXAPARIN 40 MG/0.4 ML SYRINGE SQ SCH (08:38)
[2020-04-24] MEDS: VANCOMYCIN 750 MG in SODIUM CHLORIDE 0.9% 250 ML IVPB SCH ×2 (08:38→22:10)
[2020-04-24] MEDS: ATORVASTATIN 20 MG TAB PO SCH (08:38)
[2020-04-24] MEDS: CLOPIDOGREL 75 MG TAB PO SCH (08:38)
[2020-04-24] MEDS: PANTOPRAZOLE 40 MG/10 ML VIAL IVP SCH (08:38)
[2020-04-24] MEDS: FUROSEMIDE 10 MG/ML 4 ML VIAL IV SCH ×3 (08:38→23:54)
[2020-04-24] MEDS: LORATADINE 10 MG TAB PO SCH (08:39)
[2020-04-24] MEDS: GABAPENTIN 400 MG CAP PO SCH (08:39)
[2020-04-24] MEDS: IPRATROPIUM-ALBUTEROL 3 ML NEB INHALATION PRN (08:51)
--- NOTE | 2020-04-24 09:59 | XR ---
EXAMINATION TYPE: XR chest 1V portable DATE OF EXAM: 04/24/2020 COMPARISON: 04/23/2020 HISTORY: Tube placement TECHNIQUE: Single frontal view of the chest is obtained. FINDINGS: ET and NG tube have been removed. Right-sided central line noted. Hyperinflation compatibl e COPD and there is a curvature of the spine with degenerative changes. Bilateral consolidation and p leural effusion with diffuse interstitial pattern. No pneumothorax. Calcified lymph nodes in the hilu m. IMPRESSION: 1. Diffuse pleural-parenchymal changes correlate for CHF superimposed on a background of COPD. Underl tracie pneumonia not excluded.
--- NOTE | 2020-04-24 12:07 | P.PN ---
Subjective Progress Note Date: 04/24/20 Patient is awake and alert this morning. She was extubated yesterday. She was mostly nonverbal according to nursing staff this morning. She was able to tell me her name and count to 3. She is not speaking. Sentences though. I'm not sure was her baseline mentation normally. She does not have any neurological focal deficit. Objective - Vital Signs Vital signs: Vital Signs Temp 97.0 F L 04/24/20 08:00 Pulse 91 04/24/20 11:00 Resp 14 04/24/20 11:00 BP 120/65 04/24/20 11:00 Pulse Ox 96 04/24/20 11:00 Intake & Output 04/23/20 04/24/20 04/24/20 18:59 06:59 18:59 Intake Total 875.569 316 26 Output Total 2535 1675 50 Balance -1659.431 -1359 -24 Weight 54.3 kg 50 kg Intake: IV 662 316 26 .9 pressure bag CVP 36 38 3 .9 NS Arterial line 36 38 3 .9 kvo 240 240 20 Meropenem 2 gm In Sodium 100 Chloride 0.9% 100 ml @ 33 .3 mls/hr IVPB Q12HR [facility] Rx#:[id number] Vancomycin 1,000 mg In 250 Sodium Chloride 0.9% 250 ml @ 125 mls/hr IVPB Q12HR [facility]IO Rx#:[id number] Intake, IV Titration 21.569 Amount propofoL 1,000 mg In 21.569 Empty Bag 1 bag @ Titrate IV .Q0M MARIO Rx#: [id number] Tube Feeding 112 Other 80 Output: Urine 2535 1175 50 Stool 500 Other: Voiding Method Indwelling Catheter Indwelling Catheter Indwelling Catheter ABP, PAP, CO, CI - Last Documented Arterial Blood Pressure 147/60 - Exam General: The patient is awake and alert, in no distress Eye: there is normal conjunctiva bilaterally. Neck: The neck is supple, there is no JVD. Cardiovascular: Normal S1-S2, no S3-S4, no murmurs. Respiratory: Lungs with bibasilar crackles Gastrointestinal: Abdomen is soft, nontender Musculoskeletal: There is no pedal edema. Neurological:. Speech is normal. Skin: Skin is warm and dry - Labs CBC & Chem 7: 04/24/20 04:30 04/24/20 04:30 Labs: Abnormal Lab Results - Last 24 Hours (Table) 04/24/20 04/24/20 04/24/20 Range/Units 00:45 04:30 04:30 RBC 3.51 L (3.80-5.40) m/uL Hgb 11.1 L (11.4-16.0) gm/dL Sodium 146 H (137-145) mmol/L Potassium 3.3 L 3.2 L (3.5-5.1) mmol/L Chloride 116 H (98-107) mmol/L Creatinine 0.46 L (0.52-1.04) mg/dL Calcium 6.8 L (8.4-10.2) mg/dL Microbiology - Last 24 Hours (Table) 04/18/20 01:58 Blood Culture - Final Blood No Growth after 144 hours 04/20/20 11:18 Gram Stain - Final Sputum Sputum Culture - Final Methicillin resist S. aureus Assessment and Plan Assessment: Patient is a 74-year-old female with hypertension, fibromyalgia, and coronary artery disease with prior stenting who was brought to the emergency department secondary to altered mentation. On arrival to the ER she was significantly bradycardic with a pulse of 36 blood pressure 112/75 and pulse ox 88% on room air. Chest x-ray revealed opacities in bilateral lung bases right greater than left without significant pleural effusion. She was started on dopamine for bradycardia, given a cocktail for her hyperkalemic, IV fluids, and Zithromax for pneumonia. She was admitted to the ICU. She ultimately required levo secondary to hypotension. Her potassium improved after treatment and her heart rate noramlaized and she was able to come off dopamine. Her lactic acid resolved. There was some concern for COVID 19 but PCR was negative. Patient was started on dexamethasone. Levophed was weaned on 04/18. Her O2 requirements continued to increase. Overnight on 04/19 patient had significant worsening of her respiratory status. She ultimately required intubation on the morning of 04/20. Her d-dimer was noted to be increased at 6.78 which was felt to likely be reflective of her acute pulmonary process Acute bilateral pneumonia right greater than left, ARDS -Covid test negative twice during this admission -Started on Zithromax, Vancomycin, and Merrem due to allergies. Sputum culture grew MRSA. We will continue with IV vancomycin. -Follow chest x-ray -Blood culture negative to date. Acute hypoxic respiratory failure -Status post intubation and mechanical ventilation on 04/20. Extubated successfully on 04/23 Acute diastolic heart failure exacerbation -With elevated BNP and evidence of fluid overload on chest x-ray. Started on IV Lasix area the echocardiogram this admission showed preserved ejection fraction. Sepsis with septic shock -Required vasopressors for a short time on presentation. Currently blood pressu re within acceptable range. Toxic metabolic encephalopathy, patient has a history of underlying dementia and I'm not sure what her baseline mental status. I would try to get hold of her family. -Patient is having difficulty with her speech and what appeared like aphasia. I would order a stat computed tomography scan of the head for further evaluation. -hold GABAPENTIN for now. Coronary artery disease with prior stenting of the LAD -Plavix -Lopressor on hold secondary to bradycardia -Continue with Lipitor Bradycardia/idioventricular rhythm, resolved -Cardiology recs appreciated -Echocardiogram with ejection fraction 60-65% -Likely secondary to hyperkalemia -Hold Lopressor and Cardizem for now Acute kidney injury with hyperkalemia, improved Lactic acidosis, resolved Chronic: Hypertension, fibromyalgia, peripheral neuropathy, hypothyroidism Today, I reviewed her medication list and lab work results. Appreciate pulmonology recommendations. Repeat lab work in the morning. No family members at bedside to be updated.
[2020-04-24 12:35] LABS: Glucose,Whole Blood 77 mg/dL (75-99)
--- NOTE | 2020-04-24 13:06 | CT ---
EXAMINATION TYPE: CT brain wo con DATE OF EXAM: 04/24/2020 COMPARISON: 04/26/2012 HISTORY: 74-year-old female confusion, Mental status changes TECHNIQUE: Examination was done in axial plane without intravenous contrast. Coronal and sagittal r econstructions performed. CT DLP: 937.1 mGycm Automated exposure control for dose reduction was used. FINDINGS: There is no evidence of acute intracranial hemorrhage, acute ischemic changes, mass, mass-effect, or extra-axial fluid collection. There is no effacement of cerebral sulci or basal subarachnoid cister ns. There is no hydrocephalus. There is no midline shift. Reza-white matter distinction is preserv ed. Moderate patchy white matter hypodensities in both cerebral hemispheres. Changes progressed from 2011 . Some atherosclerotic calcifications in the carotid siphons. Paranasal sinuses and mastoid air cells well pneumatized. Orbits and globes are intact. IMPRESSION: Moderate patchy burden of chronic small vessel ischemic disease, progressed from 2011. No acute intra cranial abnormality seen.
--- NOTE | 2020-04-24 15:46 | P.PN ---
Subjective Progress Note Date: 04/24/20 Principal diagnosis: Acute hypoxic respiratory failure and bilateral pneumonia, MRSA related pneumonia. On today's evaluation of 04/19/2020, the patient is feeling better. The patient is currently off pressors and the patient is currently off dopamine and norepinephrine infusion. Cardiac rhythm is sinus. No cardiac arrhythmias of been noted. The echocardiogram came back within normal limits. The ejection fraction is order of 6065%. There is mild to moderate mitral regurgitation. Moderate pulmonary hypertension. Meanwhile, the patient's white cell count is at 6.8. Hemoglobin is at 9.5. Renal function has normalized and the creatinine is down to 0.85. The patient had a follow-up chest x-ray that shows cardiomegaly and small tiny bilateral pleural effusions. There is also worsening of the right lung multifocal infiltration. The patient was noted on examination Zithromax and vancomycin. The patient is currently on 8 L of oxygen by nasal cannula. Note that her oxidation is improved somewhat. Earlier the patient was on 15 L and this was gradually weaned down to 10 L and currently she is on 8 L. she is doing well. She has no specific complaints pH is tolerating her diet. Dressing in bed comfortably. The pro-calcitonin level from yesterday was 0.31. On 04/20/2020, the patient is having significant decompensation in her clinical condition and respiratory status. Noted the patient progressively became more hypoxic throughout the night and the patient was ultimately moved to 100% nonrebreather facemask earlier this morning. Timolol arrival, the patient was struggling to breathe and she was using accessory muscles of breathing. At that point, I reviewed the chest x-ray and there was significant worsening in the pulmonary infiltrates more so on the right. There is diffuse increased lung markings present on the right and there is also infiltration also on the left. The patient was still hemodynamically stable. She was awake. Pulse ox was in the order of 90-91%. At that point, I decided to intubate the patient placed on a mechanical ventilation. Note that the joyner virus: 19 testing is still pending. The patient appropriate calcitonin level was not elevated at 0.31. I had covered with broad-spectrum antibiotics and she was receiving a combination of IV Merrem, IV vancomycin and IV Zithromax. She has multiple ALLERGIES and shortness of antibiotics was quite limited because of her ALLERGIES. Postextubation, the patient remained hemodynamically stable. She did not require any hypotension. I put her on a pressure control mode of ventilation initially the pressure control of 22 with a rate of 28 and a PEEP of 15 with an FiO2 of 100%. Subsequent blood gases showed a pH of 7.55 with a pCO2 of 33 and pO2 of 359. I changed a pressure control to a rate of 24, The PEEP down to 12, drop the FiO2 down to 50% and subsequent blood gases showed adequate oxygenation. Post intubation, the chest x-ray showed adequate positioning of 82. The patient was also given an arterial line. No pressors was utilized. Legionella urine antigen was sent.: The joyner virus Covid 19 testing is still pending for now. The most recent blood gases showed a pH of 7.54 with a pCO2 of 33 and pO2 of 103 and this was on the above-mentioned ventilator setting. The patient currently is sedated with propofol running at 70 g per KG per minute. IV fluids are at KVO. She has a CVP of 22. He was given a dose of Lasix. Note that echo cardiac exam showed a preserved LV function. She had already mild degree of pulmonary hypertension with a PA pressures being in the mid 30s. Note that her proBNP level from today was 19,000, CRP was 18.8, LDH was 1128, troponin was at 0.547, the white cell count is at 12.1. Patient was reevaluated today on 04/21/20, remains in the ICU, intubated and mechanically ventilated. She is presently on a pressure control mode of mechanical ventilation, however after reviewing her gases and ventilator settings I recommended switching the patient to a volume control, and she is now on assist control rate of 16 tidal volume is 375, FiO2 is 40%. PEEP is at 8. ABG this morning showed a pO2 of 204 pCO2 of 23 pH of 7.62. Patient remains on propofol at 60 mcg/kg/m, she is on IV fluid at KVO. And she is to be given a sedation interruption today, and assess mental status at least. Lasix was given at 40 mg IV push times one. Patient remains on multiple antibiotics including vancomycin, meropenem, and Zithromax, however these will be adjusted as soon as we have some cultures back. And we are still waiting for the covid 19 PCR which is pending. LDH is 1022 C-reactive protein is 121. Chest x-ray shows diffuse pneumonia Patient was reevaluated today on 04/22/20, patient remains in the ICU, intubated and mechanically ventilated. She is on assist control rate of 16 tidal volume of 375 FiO2 of 40% and PEEP is at 8. I did cut down the PEEP to 5. Patient came back negative for Covid 19. And her sputum is suggestive of possible staph aureus. Chest x-ray is showing slight improvement but there is also a strong suspicion that she may have underlying pulmonary edema and recommended agg ressive diuresis and repeat chest x-ray in the next 24 hours. Patient ABG showed pO2 of 156 pCO2 of 33 pH of 7.49, hence she is now at 55% FiO2 rate is at 14 and PEEP is down to 5. Patient remains on antibiotics in the form of Merrem and vancomycin, and I plan to discontinue one of them once more cultures are available. I have discontinued Zithromax. I have also discontinued Decadron, and I cut down Lovenox to 40 mg subcu daily. Patient remains on propofol at 55 mcg/kg/m. Her BNP today is significantly elevated over 54,000, hence I will push more diuretics and have a follow-up chest x-ray as the patient may be having some component of diastolic congestive heart failure. Echocardiogram showed good LV function. Patient was reevaluated today on 04/23/20, patient remains in the ICU, intubated and mechanically ventilated. She is presently on assist control rate of 14 tidal volume is 350 FiO2 is 35% and PEEP is 5. ABG showed a pO2 of 144 pCO2 of 34 pH of 7.50. Chest x-ray is showing improvement with the Lasix given 40 mg IV push every 12 hours. Patient remains on propofol, and she is on enteral feeding. She is not requiring any hemodynamic support. Patient is now on propofol, hence I plan to discontinue propofol, and we will likely recommend a trial of pressure support of 8 and CPAP if tolerated. Empirically the patient remains on antibiotics, sputum is positive for MRSA, hence Merrem was discontinued, and the patient is now on vancomycin. Again her chest x-ray today is showing improvement, I believe the findings on the chest x-ray as most are mostly findings of fluid overload and possible MRSA pneumonia. Labs today were basically unremarkable. CBC is relatively normal. Basic metabolic profile is normal except for low potassium of 3.3, being corrected as per protocol. Patient was reevaluated today on 04/24/20, remains in the ICU, patient was extubated yesterday, she is confused, presently on room air with O2 saturation of 96%, remains on Lasix and I have increased the Lasix to 40 mg IV push every 12 hours, remains on vancomycin, and she seems to have significantly elevated proBNP level today. Chest x-ray is suggestive of interstitial edema and bilat eral pleural effusions, underlying pneumonia not excluded, patient has underlying COPD. Considering her confusion, patient had a CT of the brain which showed moderate patchy burden of chronic small vessel ischemic disease, slightly progressed compared to 2012. Otherwise there is no acute intracranial abnormality seen. Labs today including CBC and basic metabolic profile are normal, again her proBNP is elevated, and her chest x-ray is also suggestive of interstitial edema Objective - Vital Signs Vital signs: Vital Signs Temp 97.0 F L 04/24/20 08:00 Pulse 81 04/24/20 15:00 Resp 15 04/24/20 15:00 BP 125/73 04/24/20 15:00 Pulse Ox 96 04/24/20 15:00 Intake & Output 04/23/20 04/24/20 04/24/20 18:59 06:59 18:59 Intake Total 875.569 316 484 Output Total 2535 1675 1675 Balance -3859.431 -9366 -6881 Weight 54.3 kg 50 kg Intake: IV 662 316 234 .9 pressure bag CVP 36 38 27 .9 NS Arterial line 36 38 27 .9 kvo 240 240 180 Meropenem 2 gm In Sodium 100 Chloride 0.9% 100 ml @ 33 .3 mls/hr IVPB Q12HR [facility] Rx#:[id number] Vancomycin 1,000 mg In 250 Sodium Chloride 0.9% 250 ml @ 125 mls/hr IVPB Q12HR [facility] Rx#:[id number] Intake, IV Titration 21.569 250 Amount Vancomycin 750 mg In 250 Sodium Chloride 0.9% 250 ml @ 125 mls/hr IVPB Q12HR [facility] Rx#:[id number] propofoL 1,000 mg In 21.569 Empty Bag 1 bag @ Titrate IV .Q0M [facility] Rx#: [id number] Tube Feeding 112 Other 80 Output: Urine 2535 1175 1675 Stool 500 Other: Voiding Method Indwelling Catheter Indwelling Catheter Indwelling Catheter ABP, PAP, CO, CI - Last Documented Arterial Blood Pressure 151/54 - Exam Physical Exam: Revealed 74-year-old female in no distress, comfortable, sitting in bed. Head: Atraumatic, normocephalic. HEENT:[Neck is supple.] [No neck masses.] [No thyromegaly.] [No JVD.] PERRLA, EOMI, no icterus. Right IJ triple-lumen catheter is noted. Chest: Minimal crackles at the bases no rhonchi and no wheezes. Cardiac Exam: [Normal S1 and S2, no S3 gallop, no murmur.] Abdomen: [Soft, nontender, no megaly, no rebound, no guarding, normal bowel sounds.] Extremities: [No clubbing, no edema, no cyanosis.] Good pulses bilaterally. Neurological Exam: Awake, but confused, follows simple instructions including coughing and squeezing hands. Psychiatric: 1 mood and affect, confused. Skin: No rashes. Lymphatics: No cervical or supraclavicular lymphadenopathy. - Labs CBC & Chem 7: 04/24/20 04:30 04/24/20 15:20 Labs: Abnormal Lab Results - Last 24 Hours (Table) 04/24/20 04/24/20 04/24/20 Range/Units 00:45 04:30 04:30 RBC 3.51 L (3.80-5.40) m/uL Hgb 11.1 L (11.4-16.0) gm/dL Sodium 146 H (137-145) mmol/L Potassium 3.3 L 3.2 L (3.5-5.1) mmol/L Chloride 116 H (98-107) mmol/L Creatinine 0.46 L (0.52-1.04) mg/dL Calcium 6.8 L (8.4-10.2) mg/dL 04/24/20 Range/Units 15:20 RBC (3.80-5.40) m/uL Hgb (11.4-16.0) gm/dL Sodium (137-145) mmol/L Potassium 3.3 L (3.5-5.1) mmol/L Chloride (98-107) mmol/L Creatinine (0.52-1.04) mg/dL Calcium (8.4-10.2) mg/dL Microbiology - Last 24 Hours (Table) 04/18/20 01:58 Blood Culture - Final Blood No Growth after 144 hours 04/20/20 11:18 Gram Stain - Final Sputum Sputum Culture - Final Methicillin resist S. aureus Assessment and Plan Assessment: Impression: Acute hypoxic respiratory failure secondary to MRSA pneumonia and diastolic congestive heart failure Suspect acute diastolic congestive heart failure. Sepsis with hypotension secondary to underlying pneumonia. Acute kidney injury with hyperkalemia. Rhythm disturbance as noted below, mostly bradycardia with intraventricular rhythm disturbance, no clear-cut evidence of atrial fibrillation. Bradycardia on presentation requiring treatment of her hyperkalemia and use of dopamine and norepinephrine temporarily. History of hypertension. History of underlying coronary artery disease. Review stenting of LAD. History of fibromyalgia. History of peripheral neuropathy. Suspect fluid overload upon presentation with hypovolemia. Mental status change, suspect acute metabolic toxic encephalopathy, negative CT of the brain findings. Recommendation: Continue ventilatory support. Increase Lasix to 40 mg IV push every 8 hours. Continue vancomycin. Advanced diet as tolerated. Continue GI and DVT prophylaxis. Continue to monitor cardiac rhythm. No evidence of atrial fibrillation, but the patient had rhythm disturbance, addressed by cardiology Negative PCR for covid 19 Consider transferring the patient out of the ICU to a monitor bed on selective, patient tolerated extubation well in the last 24 hours. We will continue to follow. Time with Patient: Less than 30
[2020-04-24] MEDS ORDERED: GABAPENTIN 300 MG CAP PO SCH (16:00)
[2020-04-24 17:47] LABS: Glucose,Whole Blood 80 mg/dL (75-99)
[2020-04-24] MEDS: DONEPEZIL 10 MG TAB PO SCH (22:10)
[2020-04-25 01:17] LABS: Glucose,Whole Blood 95 mg/dL (75-99)
[2020-04-25] MEDS: LEVOTHYROXINE 112 MCG TAB PO SCH (06:05)
[2020-04-25 06:38] LABS: Basophils % (A) 0 %; Eosinophils # (A) 0.2 k/uL (0-0.7); Eosinophils % (A) 2 %; HCT 37.4 % (34.0-46.0); HGB 11.8 gm/dL (11.4-16.0); Hypochromasia Slight; Lymphocytes % (A) 21 %; MCH 31.2 pg (25.0-35.0); MCHC 31.7 g/dL (31.0-37.0); MCV 98.4 fL (80.0-100.0); Macrocytosis Slight; Mean Platelet Volume 8.5; Monocytes # (A) 0.6 k/uL (0-1.0); Monocytes % (A) 6 %; Neutrophils # (A) 6.5 k/uL (1.3-7.7); Neutrophils % (A) 69 %; Platelet Count 175 k/uL (150-450); RDW 15.5 % (11.5-15.5); WBC 9.4 k/uL (3.8-10.6)
[2020-04-25 06:57] LABS: African American GFR (CKD) >90 (>60 ml/min/1.73 sqM); Anion Gap 3 mmol/L; Blood Urea Nitrogen 11 mg/dL (7-17); Calcium 7.1 mg/dL (8.4-10.2); Carbon Dioxide 28 mmol/L (22-30); Chloride 114 mmol/L (98-107); Glucose 93 mg/dL (74-99); Magnesium 2.1 mg/dL (1.6-2.3); Non-African American GFR(CKD) >90 (>60 ml/min/1.73 sqM); Potassium 3.4 mmol/L (3.5-5.1); Sodium 145 mmol/L (137-145)
[2020-04-25] MEDS: PANTOPRAZOLE 40 MG TABLET PO SCH (08:02)
[2020-04-25] MEDS: CLOPIDOGREL 75 MG TAB PO SCH (08:02)
[2020-04-25] MEDS: ATORVASTATIN 20 MG TAB PO SCH (08:02)
[2020-04-25] MEDS: FUROSEMIDE 10 MG/ML 4 ML VIAL IV SCH ×3 (08:02→23:33)
[2020-04-25] MEDS: ENOXAPARIN 40 MG/0.4 ML SYRINGE SQ SCH (08:03)
[2020-04-25] MEDS: VANCOMYCIN 750 MG in SODIUM CHLORIDE 0.9% 250 ML IVPB SCH ×2 (08:03→21:03)
[2020-04-25] MEDS: POTASSIUM CHLORIDE ER 20 MEQ TAB.ER PO SCH (09:18)
[2020-04-25] MEDS: METOPROLOL TARTRATE 25 MG TAB PO SCH ×2 (09:18→21:03)
--- NOTE | 2020-04-25 11:56 | XR ---
EXAMINATION TYPE: XR chest 1V portable DATE OF EXAM: 04/25/2020 COMPARISON: Chest x-ray 04/24/2020 HISTORY: Abnormal chest x-ray TECHNIQUE: Single frontal view of the chest is obtained. FINDINGS: There is been interval removal of the right jugular central venous catheter. Patchy bilate ral density is noted within the lungs. Heart is stable. Interval improved visualization of the hemidi aphragms. No pneumothorax. Interstitium is increased. Heart is enlarged. Aorta is dense. IMPRESSION: Improvement in aeration, volume status.
--- NOTE | 2020-04-25 12:11 | P.PN ---
Subjective Progress Note Date: 04/25/20 Patient is doing well today. Her mentation has improved. She was up with physical therapy when I saw her. No acute events overnight reported by nursing staff. Objective - Vital Signs Vital signs: Vital Signs Temp 98 F 04/25/20 12:06 Pulse 91 04/25/20 12:06 Resp 18 04/25/20 12:06 BP 136/70 04/25/20 12:06 Pulse Ox 98 04/25/20 12:06 Intake & Output 04/24/20 04/25/20 04/25/20 18:59 06:59 18:59 Intake Total 762 478 Output Total 2175 220 Balance -1413 258 Weight 52 kg Intake: IV 312 238 .9 pressure bag CVP 36 9 .9 NS Arterial line 36 9 .9 kvo 240 220 Intake, IV Titration 450 Amount Potassium Chloride 20 meq 200 In Water For Injection 1 100ml.bag @ 50 mls/hr IVPB Q2H [facility] Rx#: [id number] Vancomycin 750 mg In 250 Sodium Chloride 0.9% 250 ml @ 125 mls/hr IVPB Q12HR [facility] Rx#:[id number] Oral 240 Output: Urine 2175 220 Other: Voiding Method Indwelling Catheter Indwelling Catheter Indwelling Catheter ABP, PAP, CO, CI - Last Documented Arterial Blood Pressure 141/58 - Exam General: The patient is awake and alert, in no distress Eye: there is normal conjunctiva bilaterally. Neck: The neck is supple, there is no JVD. Cardiovascular: Normal S1-S2, no S3-S4, no murmurs. Respiratory: Lungs clear to auscultation bilaterally Gastrointestinal: Abdomen is soft, nontender Musculoskeletal: There is no pedal edema. Neurological:. Speech is normal. Skin: Skin is warm and dry - Labs CBC & Chem 7: 04/25/20 06:03 04/25/20 06:03 Labs: Abnormal Lab Results - Last 24 Hours (Table) 04/24/20 04/25/20 Range/Units 15:20 06:03 Potassium 3.3 L 3.4 L (3.5-5.1) mmol/L Chloride 114 H (98-107) mmol/L Creatinine 0.49 L (0.52-1.04) mg/dL Calcium 7.1 L (8.4-10.2) mg/dL Assessment and Plan Assessment: Patient is a 74-year-old female with hypertension, fibromyalgia, and coronary artery disease with prior stenting who was brought to the emergency dep artment secondary to altered mentation. On arrival to the ER she was significantly bradycardic with a pulse of 36 blood pressure 112/75 and pulse ox 88% on room air. Chest x-ray revealed opacities in bilateral lung bases right greater than left without significant pleural effusion. She was started on dopamine for bradycardia, given a cocktail for her hyperkalemic, IV fluids, and Zithromax for pneumonia. She was admitted to the ICU. She ultimately required levo secondary to hypotension. Her potassium improved after treatment and her heart rate noramlaized and she was able to come off dopamine. Her lactic acid resolved. There was some concern for COVID 19 but PCR was negative. Patient was started on dexamethasone. Levophed was weaned on 04/18. Her O2 requirements continued to increase. Overnight on 04/19 patient had significant worsening of her respiratory status. She ultimately required intubation on the morning of 04/20. Her d-dimer was noted to be increased at 6.78 which was felt to likely be reflective of her acute pulmonary process Acute bilateral pneumonia right greater than left, ARDS -Covid test negative twice during this admission -Started on Zithromax, Vancomycin, and Merrem due to allergies. Sputum culture grew MRSA. We will continue with IV vancomycin. -Repeat chest x-ray showed improvement in aeration -Blood culture negative to date. Acute hypoxic respiratory failure -Status post intubation and mechanical ventilation on 04/20. Extubated successfully on 04/23 -Wean off O2 as tolerated for O2 sats greater than 90% Acute diastolic heart failure exacerbation -With elevated BNP and evidence of fluid overload on chest x-ray. Started on IV Lasix. echocardiogram this admission showed preserved ejection fraction. Sepsis with septic shock -Required vasopressors for a short time on presentation. Currently blood pressure within acceptable range. Toxic metabolic encephalopathy, patient has a history of underlying dementia and I'm not sure what her baseline mental status. Computed tomography scan of the brain showed chronic ischemic changes and no acute finding -hold GABAPENTIN for now. Coronary artery disease with prior stenting of the LAD -Plavix -Resume low-dose Lopressor 25 mg twice daily and continue to monitor -Continue with Lipitor Bradycardia/idioventricular rhythm, resolved -Cardiology recs appreciated -Echocardiogram with ejection fraction 60-65% -Likely secondary to hyperkalemia Acute kidney injury with hyperkalemia, improved Lactic acidosis, resolved Chronic: Hypertension, fibromyalgia, peripheral neuropathy, hypothyroidism Today, I reviewed her medication list and lab work results. Appreciate pulmonology recommendations. PT/OT evaluation Repeat lab work in the morning. Anticipate discharge within the next day or 2
[2020-04-25 12:34] VITALS: BMI 23.1
--- NOTE | 2020-04-25 14:54 | P.PN ---
Subjective Progress Note Date: 04/25/20 Principal diagnosis: Acute hypoxic respiratory failure in secondary to MRSA bilateral pneumonia The patient is seen today 04/25/2020 on the regular medical floor. She is currently resting comfortably in bed. Awake and alert in no acute distress. Still somewhat confused to time and place. She is maintaining O2 saturations in the upper 90s on room air. She's afebrile. Hemodynamically stable. Sputum was positive for MRSA. Blood culture revealed no growth. White count 9.4. Hemoglobin 11.8. Sodium 145. Potassium 3.4. Creatinine 0.49. She remains on vancomycin. Continued on bronchodilators. On IV diuretics. Chest x-ray reveals bilateral patchy densities within the lung dwyer. Improved aeration. Objective - Vital Signs Vital signs: Vital Signs Temp 98 F 04/25/20 12:06 Pulse 91 04/25/20 12:06 Resp 18 04/25/20 12:06 BP 136/70 04/25/20 12:06 Pulse Ox 98 04/25/20 12:06 Intake & Output 04/24/20 04/25/20 04/25/20 18:59 06:59 18:59 Intake Total 762 478 Output Total 2175 220 Balance -1413 258 Weight 52 kg 52 kg Intake: IV 312 238 .9 pressure bag CVP 36 9 .9 NS Arterial line 36 9 .9 kvo 240 220 Intake, IV Titration 450 Amount Potassium Chloride 20 meq 200 In Water For Injection 1 100ml.bag @ 50 mls/hr IVPB Q2H MARIO Rx#: [id number] Vancomycin 750 mg In 250 Sodium Chloride 0.9% 250 ml @ 125 mls/hr IVPB Q12HR MARIO Rx#:[id number] Oral 240 Output: Urine 2175 220 Other: Voiding Method Indwelling Catheter Indwelling Catheter Indwelling Catheter ABP, PAP, CO, CI - Last Documented Arterial Blood Pressure 141/58 - Exam GENERAL EXAM: Alert, doesn't 74-year-old female patient, on room air, comfo rtable in no apparent distress. HEAD: Alopecia. Normocephalic. EYES: Normal reaction of pupils, equal size. NOSE: Clear with pink turbinates. THROAT: No erythema or exudates. NECK: No masses, no JVD. CHEST: No chest wall deformity. LUNGS: Equal air entry with crackles in the posterior bases CVS: S1 and S2 normal with no audible murmur, regular rhythm. ABDOMEN: No hepatosplenomegaly, normal bowel sounds, no guarding or rigidity. SPINE: No scoliosis or deformity SKIN: No rashes CENTRAL NERVOUS SYSTEM: No focal deficits, tone is normal in all 4 extremities. EXTREMITIES: There is no peripheral edema. No clubbing, no cyanosis. Peripheral pulses are intact. - Labs CBC & Chem 7: 04/25/20 06:03 04/25/20 06:03 Labs: Abnormal Lab Results - Last 24 Hours (Table) 04/24/20 04/25/20 Range/Units 15:20 06:03 Potassium 3.3 L 3.4 L (3.5-5.1) mmol/L Chloride 114 H (98-107) mmol/L Creatinine 0.49 L (0.52-1.04) mg/dL Calcium 7.1 L (8.4-10.2) mg/dL Assessment and Plan Assessment: Acute hypoxic respiratory failure secondary to MRSA pneumonia and diastolic c ongestive heart failure. Continued on vancomycin and IV diuretics Acute diastolic congestive heart failure. Sepsis with hypotension secondary to underlying pneumonia. Recovered. Acute kidney injury with hyperkalemia. Rhythm disturbance as noted below, mostly bradycardia with intraventricular r hythm disturbance, no clear-cut evidence of atrial fibrillation. Bradycardia on presentation requiring treatment of her hyperkalemia and use of dopamine and norepinephrine temporarily. History of hypertension. History of underlying coronary artery disease. Review stenting of LAD. History of fibromyalgia. History of peripheral neuropathy. Suspect fluid overload upon presentation with hypovolemia. Mental status change, suspect acute metabolic toxic encephalopathy, negative CT of the brain findings. Plan: The patient was seen and evaluated by Dr. Luo She is currently stable from the pulmonary and critical care standpoint On room air and the chest x-ray improving Continue vancomycin Continue diuretics Plan is to discharge to subacute rehabilitation. Possible [facility] I, the cosigning physician, performed a history & physical examination of the patient. Lungs sounds with crackles in the posterior bases. Maintaining good O2 saturations in the 90s on room air. I discussed the assessment and plan of care with my nurse practitioner, Tanya Frank. I attest to the above note as dictated by her.
[2020-04-25] MEDS: DONEPEZIL 10 MG TAB PO SCH (21:03)
[2020-04-25 21:33] VITALS: RESP 16
[2020-04-26] MEDS: LEVOTHYROXINE 112 MCG TAB PO SCH (06:24)
[2020-04-26] MEDS ORDERED: TORSEMIDE 20 MG TAB PO SCH (09:00)
[2020-04-26] MEDS: METOPROLOL TARTRATE 25 MG TAB PO SCH (09:44)
[2020-04-26] MEDS: ATORVASTATIN 20 MG TAB PO SCH (09:44)
[2020-04-26] MEDS: POTASSIUM CHLORIDE ER 20 MEQ TAB.ER PO SCH (09:44)
[2020-04-26] MEDS: ENOXAPARIN 40 MG/0.4 ML SYRINGE SQ SCH (09:44)
[2020-04-26] MEDS: PANTOPRAZOLE 40 MG TABLET PO SCH (09:44)
[2020-04-26] MEDS: CLOPIDOGREL 75 MG TAB PO SCH (09:44)
[2020-04-26] MEDS: VANCOMYCIN 750 MG in SODIUM CHLORIDE 0.9% 250 ML IVPB SCH (09:51)
--- NOTE | 2020-04-26 10:44 | P.DS ---
Providers Date of admission: 04/18/20 01:38 Expected date of discharge: 04/26/20 Attending physician: Faheem Burch MD Consults: 04/18/20 01:34 Consult Physician Routine Consulting Provider: Ck Lino Consult Reason/Comments: icu Do you want consulting provider notified?: Yes 04/18/20 01:35 Consult Physician Routine Consulting Provider: Anahy Vasques Consult Reason/Comments: bradycardia Do you want consulting provider notified?: Yes [facility] care [facility] Course: Patient is a 74-year-old female with hypertension, fibromyalgia, and coronary artery disease with prior stenting who was brought to the emergency department secondary to altered mentation. On arrival to the ER she was significantly bradycardic with a pulse of 36 blood pressure 112/75 and pulse ox 88% on room air. Chest x-ray revealed opacities in bilateral lung bases right greater than left without significant pleural effusion. She was started on dopamine for bradycardia, given a cocktail for her hyperkalemic, IV fluids, and Zithromax and vancomycin for pneumonia. She was admitted to the ICU. She ultimately required levo secondary to hypotension. Her potassium improved after treatment and her heart rate noramlaized and she was able to come off dopamine. Her lactic acid resolved. There was some concern for COVID 19 but PCR was negative. Patient was started on dexamethasone. Levophed was weaned on 04/18. Her O2 requirements continued to increase. Overnight on 04/19 patient had significant worsening of her respiratory status. She ultimately required intubation on the morning of 04/20. Her d-dimer was noted to be increased at 6.78 which was felt to likely be reflective of her acute pulmonary process. Because of this of her medical p roblems at this during this hospitalization. Acute bilateral pneumonia right greater than left, ARDS -Covid test negative twice during this admission -Started on Zithromax, Vancomycin, and Merrem due to allergies. Sputum culture grew MRSA. Finish 7 days course of antibiotic with IV vancomycin -Repeat chest x-ray showed improvement in aeration -Blood culture negative to date. Acute hypoxic respiratory failure -Status post intubation and mechanical ventilation on 04/20. Extubated successfully on 04/23 -Wean off O2 as tolerated for O2 sats greater than 90% Acute diastolic heart failure exacerbation -With elevated BNP and evidence of fluid overload on chest x-ray. Started on IV Lasix. echocardiogram this admission showed preserved ejection fraction. Transition to torsemide 40 mg daily. Monitor volume status and weight daily and adjust diuretics as needed Sepsis with septic shock -Required vasopressors for a short time on presentation. Currently blood pres sure within acceptable range. Toxic metabolic encephalopathy, patient has a history of underlying dementia and I'm not sure what her baseline mental status. Computed tomography scan of the brain showed chronic ischemic changes and no acute finding -Discontinue gabapentin Coronary artery disease with prior stenting of the LAD -Plavix -Resume Lopressor 50 mg twice daily -Continue with Lipitor Bradycardia/idioventricular rhythm, resolved -Secondary to high dose Cardizem and metoprolol. Cardizem discontinued. -Cardiology recs appreciated -Echocardiogram with ejection fraction 60-65% Acute kidney injury with hyperkalemia, improved Lactic acidosis, resolved Chronic: Hypertension, fibromyalgia, peripheral neuropathy, hypothyroidism, underlying dementia Patient will be discharged to [facility] for rehab in a stable condition. She is going to [facility] Patient Condition at Discharge: Fair Plan - Discharge Summary New Discharge Prescriptions: New Torsemide [Demadex] 40 mg PO DAILY tab Continue Calcium Citrate/Vitamin D3 [Citracal + D Maximum Caplet] 1 cap PO BID Nitroglycerin Sl Tabs [Nitrostat] 0.4 mg SL Q5M PRN PRN Reason: Chest Pain Clopidogrel [Plavix] 75 mg PO DAILY Ranolazine [Ranexa] 500 mg PO BID Potassium Chloride ER [K-Dur 20] 20 meq PO DAILY Atorvastatin [Lipitor] 20 mg PO DAILY Levothyroxine Sodium 112 mcg PO DAILY Denosumab [Prolia] 60 mg SQ Q180D Metoprolol Tartrate [Lopressor] 50 mg PO BID Esomeprazole Magnesium [NexIUM] 40 mg PO BID Hyoscyamine Sulfate [Levbid] 0.375 mg PO Q12H Donepezil HCl [Aricept] 10 mg PO HS Sennosides/Docusate Sodium [Colace 2-in-1 Tablet] 1 tab PO BID Discontinued Omeprazole 20 mg PO AC-BRKFST diphenhydrAMINE [Benadryl] 25 mg PO HS Nitroglycerin Extended Release [Nitro-Bid] 6.5 mg PO TID Lysine [l-Lysine] 1,000 mg PO DAILY Cetirizine HCl [Zyrtec] 10 mg PO DAILY Gabapentin 800 mg PO QID Diltiazem HCl [Cardizem CD] 240 mg PO BID fentaNYL 100MCG/HR PATCH [Duragesic 100MCG/HR] 1 patch TRANSDERM Q72H Torsemide [Demadex] 20 mg PO TID Discharge Medication List Atorvastatin [Lipitor] 20 mg PO DAILY 04/18/20 [History] Calcium Citrate/Vitamin D3 [Citracal + D Maximum Caplet] 1 cap PO BID 04/18/20 [History] Clopidogrel [Plavix] 75 mg PO DAILY 04/18/20 [History] Denosumab [Prolia] 60 mg SQ Q180D 04/18/20 [History] Donepezil HCl [Aricept] 10 mg PO HS 04/18/20 [History] Esomeprazole Magnesium [NexIUM] 40 mg PO BID 04/18/20 [History] Hyoscyamine Sulfate [Levbid] 0.375 mg PO Q12H 04/18/20 [History] Levothyroxine Sodium 112 mcg PO DAILY 04/18/20 [History] Metoprolol Tartrate [Lopressor] 50 mg PO BID 04/18/20 [History] Nitroglycerin Sl Tabs [Nitrostat] 0.4 mg SL Q5M PRN 04/18/20 [History] Potassium Chloride ER [K-Dur 20] 20 meq PO DAILY 04/18/20 [History] Ranolazine [Ranexa] 500 mg PO BID 04/18/20 [History] Sennosides/Docusate Sodium [Colace 2-in-1 Tablet] 1 tab PO BID 04/18/20 [History] Torsemide [Demadex] 40 mg PO DAILY tab 04/26/20 [Rx] Follow up Appointment(s)/Referral(s): Calvin Brown MD [Primary Care Provider] - 1-2 days Discharge Disposition: TRANSFER TO SNF/ECF
[2020-04-26 12:22] VITALS: BP 129/74; PULSE 86; TEMP 97.6
--- NOTE | 2020-04-26 12:22 | P.PN ---
Subjective Progress Note Date: 04/26/20 Principal diagnosis: Acute hypoxic respiratory failure in secondary to MRSA bilateral pneumonia The patient is seen today 04/25/2020 on the regular medical floor. She is currently resting comfortably in bed. Awake and alert in no acute distress. Still somewhat confused to time and place. She is maintaining O2 saturations in the upper 90s on room air. She's afebrile. Hemodynamically stable. Sputum was positive for MRSA. Blood culture revealed no growth. White count 9.4. Hemoglobin 11.8. Sodium 145. Potassium 3.4. Creatinine 0.49. She remains on vancomycin. Continued on bronchodilators. On IV diuretics. Chest x-ray reveals bilateral patchy densities within the lung dwyer. Improved aeration. Patient seen today 04/26/2020 in follow-up on the regular medical floor. She is resting in bed. Awake and alert in no acute distress. Denies any worsening bimal rtness of breath, cough or congestion. She is maintaining good O2 saturations in the mid to upper 90s on room air. She's been afebrile. Hemodynamically stable. She remains on vancomycin for her positive MRSA sputum. Objective - Vital Signs Vital signs: Vital Signs Temp 98.5 F 04/26/20 04:30 Pulse 85 04/26/20 04:30 Resp 16 04/25/20 21:00 BP 127/73 04/26/20 04:30 Pulse Ox 98 04/26/20 04:30 Intake & Output 04/25/20 04/26/20 04/26/20 18:59 06:59 18:59 Output Total 2365 Balance -2365 Weight 52 kg Output: Urine 2365 Uretheral (Torres) 950 Other: Voiding Method Indwelling Catheter Indwelling Catheter Indwelling Catheter # Bowel Movements 1 ABP, PAP, CO, CI - Last Documented Arterial Blood Pressure 141/58 - Exam GENERAL EXAM: Alert, doesn't 74-year-old female patient, on room air, comfortable in no apparent distress. HEAD: Alopecia. Normocephalic. EYES: Normal reaction of pupils, equal size. NOSE: Clear with pink turbinates. THROAT: No erythema or exudates. NECK: No masses, no JVD. CHEST: No chest wall deformity. LUNGS: Equal air entry with crackles in the posterior bases CVS: S1 and S2 normal with no audible murmur, regular rhythm. ABDOMEN: No hepatosplenomegaly, normal bowel sounds, no guarding or rigidity. SPINE: No scoliosis or deformity SKIN: No rashes CENTRAL NERVOUS SYSTEM: No focal deficits, tone is normal in all 4 extremities. EXTREMITIES: There is no peripheral edema. No clubbing, no cyanosis. Peripheral pulses are intact. - Labs CBC & Chem 7: 04/25/20 06:03 04/25/20 06:03 Assessment and Plan Assessment: Acute hypoxic respiratory failure secondary to MRSA pneumonia and diastolic congestive heart failure. Continued on vancomycin and IV diuretics Acute diastolic congestive heart failure. Sepsis with hypotension secondary to underlying pneumonia. Recovered. Acute kidney injury with hyperkalemia. Rhythm disturbance as noted below, mostly bradycardia with intraventricular rhythm disturbance, no clear-cut evidence of atrial fibrillation. Bradycardia on presentation requiring treatment of her hyperkalemia and use of dopamine and norepinephrine temporarily. History of hypertension. History of underlying coronary artery disease. Review stenting of LAD. History of fibromyalgia. History of peripheral neuropathy. Suspect fluid overload upon presentation with hypovolemia. Mental status change, suspect acute metabolic toxic encephalopathy, negative CT of the brain findings. Plan: The patient was seen and evaluated by Dr. Puja Giron from the pulmonary standpoint. Plan is to discharge to subacute rehabilitation. Possible [facility] I, the cosigning physician, performed a history & physical examination of the patient. Lungs sounds with crackles in the posterior bases. Maintaining good O2 saturations in the 90s on room air. I discussed the assessment and plan of care with my nurse practitioner, Tanya Frank. I attest to the above note as dictated by her.
[2020-04-26] MEDS: FUROSEMIDE 10 MG/ML 4 ML VIAL IV SCH (12:40)
[2020-04-26] MEDS ORDERED: POTASSIUM CHLORIDE ER 20 MEQ TAB.ER PO SCH (13:00)
== END 2020-04-26 12:45 | DRG 871 ==
LOC: EC 00:22 → 2SICU 01:38 → 6NMEDSUR 04-24 23:00
PROVIDERS: ADMIT Internal Medicine; ATTEND Internal Medicine
PROC: 3E033XZ Introduction of Vasopressor into Peripheral Vein, Percutaneous Approach (ICD-10-PCS; 2020-04-18)
PROC: 0BH17EZ Insertion of Endotracheal Airway into Trachea, Via Natural or Artificial Opening (ICD-10-PCS; principal; 2020-04-20)
PROC: 5A1945Z Respiratory Ventilation, 24-96 Consecutive Hours (ICD-10-PCS; 2020-04-20)
PROC: 0DH67UZ Insertion of Feeding Device into Stomach, Via Natural or Artificial Opening (ICD-10-PCS; 2020-04-20)
PROC: 03HY32Z Insertion of Monitoring Device into Upper Artery, Percutaneous Approach (ICD-10-PCS; 2020-04-20)
PROC: 4A133B1 Monitoring of Arterial Pressure, Peripheral, Percutaneous Approach (ICD-10-PCS; 2020-04-20)
PROC: 4A133J1 Monitoring of Arterial Pulse, Peripheral, Percutaneous Approach (ICD-10-PCS; 2020-04-20)
PROC: 3E0G76Z Introduction of Nutritional Substance into Upper GI, Via Natural or Artificial Opening (ICD-10-PCS; 2020-04-21)
DX: A41.02 Sepsis due to Methicillin resistant Staphylococcus aureus (principal); R65.21 Severe sepsis with septic shock; G92 Toxic encephalopathy; I50.33 Acute on chronic diastolic (congestive) heart failure; J80 Acute respiratory distress syndrome; J15.212 Pneumonia due to Methicillin resistant Staphylococcus aureus; J44.0 Chronic obstructive pulmonary disease with (acute) lower respiratory infection; E87.2 Acidosis; N17.9 Acute kidney failure, unspecified; I27.22 Pulmonary hypertension due to left heart disease; I11.0 Hypertensive heart disease with heart failure; F03.90 Unspecified dementia, unspecified severity, without behavioral disturbance, psychotic disturbance, mood disturbance, and anxiety; E87.5 Hyperkalemia; Z20.828 Contact with and (suspected) exposure to other viral communicable diseases; R00.1 Bradycardia, unspecified; I25.10 Atherosclerotic heart disease of native coronary artery without angina pectoris; M79.7 Fibromyalgia; G62.9 Polyneuropathy, unspecified; E03.9 Hypothyroidism, unspecified; M81.0 Age-related osteoporosis without current pathological fracture; E78.5 Hyperlipidemia, unspecified; I44.7 Left bundle-branch block, unspecified; I34.0 Nonrheumatic mitral (valve) insufficiency; R77.8 Other specified abnormalities of plasma proteins; D64.9 Anemia, unspecified; Z71.3 Dietary counseling and surveillance; Z90.710 Acquired absence of both cervix and uterus; Z79.02 Long term (current) use of antithrombotics/antiplatelets; Z79.890 Hormone replacement therapy; Z79.899 Other long term (current) drug therapy; Z95.5 Presence of coronary angioplasty implant and graft; Z90.49 Acquired absence of other specified parts of digestive tract; Z98.890 Other specified postprocedural states; Z86.73 Personal history of transient ischemic attack (TIA), and cerebral infarction without residual deficits; Z91.040 Latex allergy status; Z88.5 Allergy status to narcotic agent; Z88.0 Allergy status to penicillin; Z88.2 Allergy status to sulfonamides; Z88.8 Allergy status to other drugs, medicaments and biological substances; Z88.6 Allergy status to analgesic agent; Z88.1 Allergy status to other antibiotic agents; Z91.041 Radiographic dye allergy status
CPT/HCPCS: 36415; 51702; 70450; 71045; 80048; 80053; 80202; 81001; 82550; 82553; 82728; 82805; 83036; 83605; 83615; 83735; 83880; 84100; 84132; 84145; 84443; 84484; 85025; 85027; 85379; 85384; 85610; 85730; 86140; 87040; 87070; 87077; 87186; 87205; 87324; 87449; 87502; 93005; 93306; 94002; 94003; 94640; 96361; 96365; 96368; 96375; 99291

== ENCOUNTER 2020-05-10 10:24 | Emergency (ER) | payer MEDICARE, OTHER ==
[2020-05-10 10:32] VITALS: TEMP 96.9
[2020-05-10] MEDS ORDERED: ATROPINE SULFATE 0.1 MG/ML 10ML SYRINGE IV STA (10:33)
--- NOTE | 2020-05-10 10:36 | ED ---
General Adult HPI - General Chief complaint: Cardiac Arrest/CPR Stated complaint: post cardiac arrest Time Seen by Provider: 05/10/20 10:32 Source: EMS, RN notes reviewed, old records reviewed Mode of arrival: EMS Limitations: altered mental status, physical limitation - History of Present Illness Initial comments: Patient is a 74-year-old female presenting to the emergency department following cardiac arrest. Patient was recently in the hospital and discharged with pneumonia. Patient has not been feeling well since that time. Patient was feeling more short of breath today. Patient was seen this morning. Patient was found approximately an hour later by unresponsive. Rescue breathing was done. EMS arrived shortly after and found patient pulseless. CPR done. Patient received epi 4 with return of circulation. Patient remains br adycardic. Patient was intubated. Patient remains unresponsive and nonverbal at this time. - Related Data Home Medications Medication Instructions Recorded Confirmed Atorvastatin [Lipitor] 20 mg PO DAILY 04/18/20 04/18/20 Calcium Citrate/Vitamin D3 1 cap PO BID 04/18/20 04/18/20 [Citracal + D Maximum Caplet] Clopidogrel [Plavix] 75 mg PO DAILY 04/18/20 04/18/20 Denosumab [Prolia] 60 mg SQ Q180D 04/18/20 04/18/20 Donepezil HCl [Aricept] 10 mg PO HS 04/18/20 04/18/20 Esomeprazole Magnesium [NexIUM] 40 mg PO BID 04/18/20 04/18/20 Hyoscyamine Sulfate [Levbid] 0.375 mg PO Q12H 04/18/20 04/18/20 Levothyroxine Sodium 112 mcg PO DAILY 04/18/20 04/18/20 Metoprolol Tartrate [Lopressor] 50 mg PO BID 04/18/20 04/18/20 Nitroglycerin Sl Tabs [Nitrostat] 0.4 mg SL Q5M PRN 04/18/20 04/18/20 Potassium Chloride ER [K-Dur 20] 20 meq PO DAILY 04/18/20 04/18/20 Ranolazine [Ranexa] 500 mg PO BID 04/18/20 04/18/20 Sennosides/Docusate Sodium [Colace 1 tab PO BID 04/18/20 04/18/20 2-in-1 Tablet] Previous Rx's Medication Instructions Recorded Torsemide [Demadex] 40 mg PO DAILY tab 04/26/20 Allergies Allergy/AdvReac Type Severity Reaction Status Date / Time aspirin Allergy Unknown Verified 05/10/20 10:32 cephalexin [From Keflex] Allergy Unknown Verified 05/10/20 10:32 ciprofloxacin [From Cipro] Allergy Unknown Verified 05/10/20 10:32 codeine Allergy Unknown Verified 05/10/20 10:32 ibuprofen [From Motrin] Allergy Unknown Verified 05/10/20 10:32 Iodinated Contrast Media Allergy Unknown Verified 05/10/20 10:32 latex Allergy Unknown Verified 05/10/20 10:32 naproxen Allergy Unknown Verified 05/10/20 10:32 Penicillins Allergy Unknown Verified 05/10/20 10:32 quinine [From Quine] Allergy Unknown Verified 05/10/20 10:32 sulfamethoxazole Allergy Unknown Verified 05/10/20 10:32 [From Bactrim] trimethoprim [From Bactrim] Allergy Unknown Verified 05/10/20 10:32 Review of Systems ROS Statement: Those systems with pertinent positive or pertinent negative responses have been documented in the HPI. ROS Other: All systems not noted in ROS Statement are negative. Limitations: ROS unobtainable due to patients medical condition Respiratory: Reports: dyspnea Past Medical History Past Medical History: Coronary Artery Disease (CAD), Fibromyalgia, Hypertension Additional Past Medical History / Comment(s): stent to LADx3, last cath was in 2018, Follows with Dr Ellison. CVA. peripheral neuropathy. Hypothyroid. osteoporosis. hyperlipidemia History of Any Multi-Drug Resistant Organisms: MRSA Date of last positivie culture/infection: 04/20/20 MDRO Source:: SPUTUM MRSA Past Surgical History: Bladder Surgery, Cholecystectomy, Heart Catheterization With Stent, Hysterectomy Additional Past Surgical History / Comment(s): EGD and colonoscopy done in [facility] Past Psychological History: No Psychological Hx Reported Smoking Status: Never smoker Past Alcohol Use History: Occasional Past Drug Use History: None Reported - Past Family History family Family Medical History: No Reported History General Exam Limitations: altered mental status, physical limitation General appearance: obtunded Head exam: Present: atraumatic Eye exam: Present: other ( Fixed and dilated) ENT exam: Present: normal oropharynx Neck exam: Present: normal inspection Respiratory exam: Present: other (Equal breath sounds with bagging insufflation) Cardiovascular Exam: Present: bradycardia, other (Bradycardic and pulses weak throughout) GI/Abdominal exam: Present: soft. Absent: tenderness Extremities exam: Present: normal inspection Neurological exam: Present: other (Unresponsive. GCS 3.) Psychiatric exam: Present: other (Unresponsive) Skin exam: Present: normal color Course Vital Signs 05/10/20 05/10/20 05/10/20 10:25 10:49 11:00 Temperature 96.9 F L Pulse Rate 35 L 39 L 32 L Respiratory 12 20 Rate Blood Pressure 124/40 122/48 71/42 O2 Sat by Pulse 100 96 Oximetry 05/10/20 11:30 Temperature Pulse Rate 24 L Respiratory 20 Rate Blood Pressure 36/26 O2 Sat by Pulse 60 L Oximetry - Reevaluation(s) Reevaluation #1: 05/10/20 10:36 Patient was given 1 of atropine without improvement. Patient placed on transdermal pacing 05/10/20 10:50 Patient did go asystole. CPR was done for approximately 10 minutes. Patient received additional atropine as well as 2 epinephrine and bicarb with return of circulation. Heart rate is 39 with systolic blood pressure 122. Strong pulse. 05/10/20 10:51 EKG #2 shows junk from bradycardia with a rate of 40. QRS 90. QT 534. QTC 435. Normal axis. Inferior and lateral T wave inversion. Normal QRS. 05/10/20 11:06 Case was discussed with Dr. Ann with cardiology who believes patient should be comfort care and there is not much value in aggressive care. Patient has had 25 minutes of CPR and does have blood coming from her ET tube. Patient remains unresponsive. Pupils remained fixed and dilated. Family is present and updated. Heart rate remains in the 30s. Family is agreeable to make patient Comfort Care and no code and not to continue with aggressive treatment. 05/10/20 11:42 Patient is asystole on the monitor. No pulse. No breath sounds. No heart sounds. Pupils are fixed and dilated. No response to pain. Time of is 11:40 AM. Primary care physician is Dr. Castellano from [facility] and he has been paged. 05/10/20 12:08 Case was discussed with medical laboratory assistant Frieda who is okay with release of body. EKG Findings - EKG Comments: EKG Findings:: Genital bradycardia rate 39. QRS 104. QT 558. QTC 449. Normal axis. Septal Q waves. Lateral T wave inversion. Inferior T wave inversion. Medical Decision Making - Lab Data Result diagrams: 05/10/20 10:36 05/10/20 10:36 Lab Results 05/10/20 05/10/20 05/10/20 Range/Units 10:36 10:36 10:36 WBC 8.2 (3.8-10.6) k/uL RBC 2.92 L (3.80-5.40) m/uL Hgb 9.4 L D (11.4-16.0) gm/dL Hct 31.0 L (34.0-46.0) % MCV 106.2 H D (80.0-100.0) fL MCH 32.1 (25.0-35.0) pg MCHC 30.3 L (31.0-37.0) g/dL RDW 14.5 (11.5-15.5) % Plt Count 140 L (150-450) k/uL MPV 8.4 Hypochromasia Marked Macrocytosis Moderate PT 11.4 (9.0-12.0) sec INR 1.1 (<1.2) APTT 34.0 H (22.0-30.0) sec Sodium 132 L (137-145) mmol/L Potassium 6.3 H* (3.5-5.1) mmol/L Chloride 106 (98-107) mmol/L Carbon Dioxide 8 L* (22-30) mmol/L Anion Gap 18 mmol/L BUN 21 H (7-17) mg/dL Creatinine 3.37 H (0.52-1.04) mg/dL Est GFR (CKD-EPI)AfAm 15 (>60 ml/min/1.73 sqM) Est GFR (CKD-EPI)NonAf 13 (>60 ml/min/1.73 sqM) Glucose 291 H (74-99) mg/dL Calcium 6.6 L (8.4-10.2) mg/dL Magnesium 2.4 H (1.6-2.3) mg/dL Total Bilirubin 0.4 (0.2-1.3) mg/dL AST 178 H (14-36) U/L ALT 98 H (4-34) U/L Alkaline Phosphatase 48 (38-126) U/L Creatine Kinase 48 (30-135) U/L Troponin I (0.000-0.034) ng/mL Total Protein 5.2 L (6.3-8.2) g/dL Albumin 2.7 L (3.5-5.0) g/dL 05/10/20 Range/Units 10:36 WBC (3.8-10.6) k/uL RBC (3.80-5.40) m/uL Hgb (11.4-16.0) gm/dL Hct (34.0-46.0) % MCV (80.0-100.0) fL MCH (25.0-35.0) pg MCHC (31.0-37.0) g/dL RDW (11.5-15.5) % Plt Count (150-450) k/uL MPV Hypochromasia Macrocytosis PT (9.0-12.0) sec INR (<1.2) APTT (22.0-30.0) sec Sodium (137-145) mmol/L Potassium (3.5-5.1) mmol/L Chloride (98-107) mmol/L Carbon Dioxide (22-30) mmol/L Anion Gap mmol/L BUN (7-17) mg/dL Creatinine (0.52-1.04) mg/dL Est GFR (CKD-EPI)AfAm (>60 ml/min/1.73 sqM) Est GFR (CKD-EPI)NonAf (>60 ml/min/1.73 sqM) Glucose (74-99) mg/dL Calcium (8.4-10.2) mg/dL Magnesium (1.6-2.3) mg/dL Total Bilirubin (0.2-1.3) mg/dL AST (14-36) U/L ALT (4-34) U/L Alkaline Phosphatase (38-126) U/L Creatine Kinase (30-135) U/L Troponin I 0.029 (0.000-0.034) ng/mL Total Protein (6.3-8.2) g/dL Albumin (3.5-5.0) g/dL Critical Care Time Critical Care Time: Yes Total Critical Care Time: 31 Disposition Clinical Impression: Cardiopulmonary arrest Disposition: Is patient prescribed a controlled substance at d/c from ED?: No Referrals: Calvin Brown MD [Primary Care Provider] - 1-2 days Time of Disposition: 11:43 Preliminary Cause of : Cardiopulmonary failure
[2020-05-10] MEDS ORDERED: EPINEPHrine 10 ML SYRINGE (0.1 MG/ML) ONE (10:37)
[2020-05-10] MEDS ORDERED: SODIUM BICARB 8.4% 50 ML SYR (1 MEQ/ML) ONE (10:37)
[2020-05-10] MEDS ORDERED: ATROPINE SULFATE 0.1 MG/ML 10ML SYRINGE ONE (10:37)
[2020-05-10 10:53] LABS: Hypochromasia Marked; MCH 32.1 pg (25.0-35.0); MCHC 30.3 g/dL (31.0-37.0); Macrocytosis Moderate; Mean Platelet Volume 8.4; Platelet Count 140 k/uL (150-450); RBC 2.92 m/uL (3.80-5.40); RDW 14.5 % (11.5-15.5); WBC 8.2 k/uL (3.8-10.6)
[2020-05-10 10:55] LABS: Albumin 2.7 g/dL (3.5-5.0); Calcium 6.6 mg/dL (8.4-10.2); Magnesium 2.4 mg/dL (1.6-2.3); Total Bilirubin 0.4 mg/dL (0.2-1.3); Total Protein 5.2 g/dL (6.3-8.2)
[2020-05-10 10:57] LABS: INR 1.1 (<1.2); Prothrombin Time 11.4 sec (9.0-12.0)
--- NOTE | 2020-05-10 11:04 | XR ---
EXAMINATION TYPE: XR chest 1V portable DATE OF EXAM: 05/10/2020 HISTORY: Shortness of breath. COMPARISON: 04/25/2020 TECHNIQUE: Single view of the chest is submitted. FINDINGS: Endotracheal tube is appropriately placed. Progressive airspace consolidation right upper lobe and right perihilar region. Additional patchy inf iltrate left perihilar region. The heart is stable. Hilar and mediastinal structures are within normal limits. Degenerative changes are seen of the dorsal spine. IMPRESSION: 1. Progressive airspace consolidation right upper lobe and right perihilar region. Additional patchy infiltrate left perihilar region.
[2020-05-10 11:26] LABS: Potassium 6.3 mmol/L (3.5-5.1)
[2020-05-10 11:30] VITALS: RESP 20
[2020-05-10 11:33] VITALS: BP 36/26; PULSE 24
[2020-05-10 11:42] LABS: HGB 9.4 gm/dL (11.4-16.0)
[2020-05-10 11:43] LABS: MCV 106.2 fL (80.0-100.0)
[2020-05-10 12:14] LABS: Band Neutrophils % 5 %; Basophils # (M) 0.08 k/uL (0-0.2); Eosinophils # (M) 0.16 k/uL (0-0.7); Lymphocytes # (M) 3.77 k/uL (1.0-4.8); Metamyelocytes # (M) 0.08 k/uL (0); Metamyelocytes % 1 %; Monocytes # (M) 0.25 k/uL (0-1.0); Myelocytes # (M) 0.25 k/uL (0); Myelocytes % 3 %; Neutrophils % (M) 41 %; Nucleated Red Blood Cells 0 /100 WBC (0-0); Total Cells Counted 200
[2020-05-10 12:20] LABS: Poikilocytosis (M) Present
== END 2020-05-10 13:50 | disposition expired ==
LOC: EC 10:24
DX: I46.9 Cardiac arrest, cause unspecified (principal); R40.2430 Glasgow coma scale score 3-8, unspecified time; I25.10 Atherosclerotic heart disease of native coronary artery without angina pectoris; M79.7 Fibromyalgia; I10 Essential (primary) hypertension; E03.9 Hypothyroidism, unspecified; G62.9 Polyneuropathy, unspecified; Z79.02 Long term (current) use of antithrombotics/antiplatelets; Z79.890 Hormone replacement therapy; Z79.899 Other long term (current) drug therapy; Z88.1 Allergy status to other antibiotic agents; Z88.2 Allergy status to sulfonamides; Z88.0 Allergy status to penicillin; Z91.040 Latex allergy status; Z88.6 Allergy status to analgesic agent; Z95.5 Presence of coronary angioplasty implant and graft; Z86.14 Personal history of Methicillin resistant Staphylococcus aureus infection
CPT/HCPCS: 99291; 92950; 36415; 93005; 80053; 82550; 83735; 84484; 85025; 85610; 85730; 71045; J0461; J0171; 94002